=== PATIENT | female | born 1965 | race Caucasian/White ===

== ENCOUNTER 2017-11-25 13:38 | Day surgery (SDC) | payer OTHER, SELFPAY ==
--- NOTE | 2017-11-25 | PATH_ITS ---
[facility] Accession Number: [id number] . 01 Material submitted: . CECAL POLYP . 02 Diagnosis: Cecal Polyp: Tubulovillous adenoma, fragmented. Negative for high-grade dysplasia or malignancy. [facility]/11/29/2017 . 02 Electronically signed: . Rafy Cherry MD, PhD, Pathologist NPI- [id number] . 01 Gross description: . CECAL POLYP: Received in formalin are multiple fragment(s) of tomlin, soft tissue measuring 1.9 x 0.6 x 0.3 cm in aggregate submitted entirely in 1 cassette(s) /CKI /CKI . 02 Pathologist provided ICD-10: D12.0 . 02 CPT . 152347 Performed at: 01 [facility] [address] [place] [address], [place], [place] [id number] MD Moisés Cooper MD Phone: [phone] Performed at: 02 [facility] [address] [place], [place] [id number] MD Celestino Nelson MD Phone: [phone]
[2017-11-25 13:52] VITALS: BP 111/66; PULSE 81; RESP 16; TEMP 36.6; O2SAT 98; BMI 24.9
[2017-11-25] MEDS: SODIUM CHLORIDE 0.9% 1,000 ML 200 ML IV (13:56)
--- NOTE | 2017-11-25 14:23 | PM.HP.1 ---
History of Present Illness Date Patient Seen: 11/25/17 Time Patient Seen: 14:23 Chief complaint: [id number] Narrative: 52-year-old female with family history of colon cancer who presents now at age 52 for colorectal screening. Her 1st cousin recently discovered that he has colorectal cancer related to Saravia syndrome. However, the patient has 2 sisters have been tested and are negative for the abnormality. Nevertheless, patient's grandmother also of colorectal cancer. She has had no recent intestinal symptoms such as nausea, vomiting, loss of appetite, unexplained weight loss, abdominal pain, change in bowel habits, diarrhea, constipation, melena, hematochezia, or bright red blood per rectum. Patient History Medical History Anemia (Acute) Asthma (Acute) Depression (Acute) Environmental allergies (Acute) Family history of Saravia syndrome (Acute) Fungal infection of foot (Acute) Hyperlipidemia (Acute) Hypothyroidism (Acute) Low back pain (Acute) Lumbar radiculopathy (Acute) Neuropathy (Acute) Ovarian cyst (Acute) Recurrent sinusitis (Acute) Restless leg syndrome (Acute) Right inguinal hernia (Acute) Vertigo (Acute) Surgical History H/O right inguinal hernia repair (Acute) Family & Social History Family History: Reviewed 11/25/17 by Jordin Houston MD Social History: household members spouse,children Tobacco & Substance use: Smoking Status Never smoker alcohol intake never Substance Use Type does not use Meds Home Medications Medication Instructions Recorded Confirmed Type gabapentin [Neurontin] PRN #0 02/17/16 History fluticasone 1 spray INTRANASAL #0 03/04/16 History Allergies Allergy/AdvReac Type Severity Reaction Status Date / Time penicillin G Allergy Mild swelling/hi Verified 10/25/17 14:40 ves Review of Systems Review of Systems All systems reviewed & are unremarkable except as noted in HPI and below Exam Vital Signs (past 8 hours): - 11/25/17 13:52 Temperature 97.8 F Pulse Rate 81 Respiratory Rate 16 Blood Pressure 111/66 Pulse Oximetry 98 Oxygen Delivery Method Room Air Narrative Exam Narrative: Well-nourished well-developed female in no acute distress. Alert oriented x3 Sclera nonicteric Neck is supple Chest clear to auscultation. Regular rate and rhythm Abdomen soft, nondistended, nontender, no masses Extremities show no clubbing, cyanosis, or edema Objective Labs Labs: No recent laboratory radiographic studies for review Patient has not yet been tested for Saravia syndrome Assessment & Plan Plan: Assessment/Plan Narrative: 52-year-old female with family history of Saravia syndrome and colorectal neoplasia now presenting for colorectal screening. I recommend colonoscopy. Technical details of the procedure were reviewed. Risks, benefits, alternatives were explained. Risks including but not limited to sedation, aspiration, bleeding, pain, missed lesion, incomplete examination, need for further radiographic studies, colonic perforation, need for major abdominal surgery, and all attendant risks of major surgery were explained at length. All questions were answered to her satisfaction, and she voiced understanding. Consent was placed on the chart. I also advised her to obtain Saravia syndrome genetic testing as this would potentially affect her colorectal surveillance and management. We also discussed a follow-up colonoscopy 5 years from now even if this study is normal given the family history. Again, she voiced understanding. We will proceed with colonoscopy as above.
--- NOTE | 2017-11-25 14:27 | PM.PREOP ---
Pre-operative Note Interval Note Pre-op Check: Yes History & Physical Reviewed by Physician, Yes Exam Performed and Yes History & Physical exam performed today by Physician Changes: No H&P completed within 30 days and has changed as indicated here:: Patient seen and examined today. History physical examination documented and placed on the chart. We will proceed with colonoscopy today as planned. ASA Class (for procedural sedation): I
[2017-11-25] MEDS: fentaNYL 250 MCG/5 ML INJ IV (14:34)
[2017-11-25] MEDS: MIDAZOLAM 5 MG/5 ML VIAL IV (14:35)
--- NOTE | 2017-11-25 15:00 | P.OP.ENDO_ITS ---
Operative Date/Time/Diagnoses Date of procedure: 11/25/17 Time of procedure: 14:57 Pre-op diagnosis: Colorectal screening for family history of colon cancer Post-op diagnosis: other (Colon polyp and few scattered diverticula) Procedure & Clinicians Study performed: 1. Sedation for surgeon 2. 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 She presents now for screening. Colonoscopy is recommended. Surgeon: Jordin Houston Procedure Notes SCOAP/Timeout: Yes Procedure in detail: After obtaining informed consent, the patient was brought to the GI suite and placed in the left lateral decubitus position on the examination table. After placement of appropriate monitors, the patient was given incremental doses of Versed and Fentanyl until an appropriate level of sedation was achieved. A time out was held per SCOAP protocol. A digital rectal examination was performed and did not reveal any masses or obstructing lesions. The colonoscope was gently passed into the patient's anus and the entire colon navigated to the level of the cecum with minimal difficulty. Terminal ileum was intubated and was noted to be normal. Once in the cecum, the scope was withdrawn being sure to go before and beyond all mucosal folds and prominences and get an excellent examination. The findings are noted above. At the level of the rectal vault, the scope was retroflexed and the internal anal canal was examined. The scope was straightened and air aspirated from the colon. The instrument was removed from the patient's body and the procedure was concluded. The patient was allowed to awaken from sedation without difficulty and taken to the post-anesthesia care unit in good condition. Scope withdrawal time: 12:26 min Sedation minutes: 23 Findings: diverticulosis (Very few scattered diverticula left colon) and polyp ( Villous appearing polyp at ileocecal valve removed with combination of hot snare and cold forceps) Specimen(s): other (Cecal polyp) Complications: none Recommendations: Colonscopy in 5 years, High fiber diet and Will call with biopsy results Plan for aftercare: 1. Discharged home Follow up: as needed Disposition: PACU
[2017-11-25 15:08] VITALS: BP 110/70; PULSE 75; RESP 15; TEMP 36.6; O2SAT 98
== END 2017-11-25 15:36 | disposition home or self-care (01) ==
PROVIDERS: PCP Family Medicine; Visit Provider Surgery
PROC: 0DJD8ZZ Inspection of Lower Intestinal Tract, Via Natural or Artificial Opening Endoscopic (ICD-10-PCS; CPT 45378; principal; 2017-11-25 15:00)
DX: Z12.11 Encounter for screening for malignant neoplasm of colon (principal); Z80.0 Family history of malignant neoplasm of digestive organs; K57.30 Diverticulosis of large intestine without perforation or abscess without bleeding; D12.0 Benign neoplasm of cecum
CPT/HCPCS: 45385; 45380; 99152; 99153; J2250; J3010

== ENCOUNTER → 2018-01-12 11:32 | Outpatient (CLI) | payer OTHER, SELFPAY ==
--- NOTE | 2018-01-12 | DI.MG.S_ITS ---
BILATERAL DIGITAL SCREENING MAMMOGRAM 3D/2D WITH CAD: 01/12/2018 CLINICAL: Routine screening. Family history of breast cancer. Comparison is made to exams dated: 07/11/2015 mammogram, 12/09/2016 mammogram, and 08/17/2013 mammogram - [facility]. The tissue of both breasts is heterogeneously dense. This may lower the sensitivity of mammography. Current study was also evaluated with a Computer Aided Detection (CAD) system. No significant masses, calcifications, or other findings are seen in either breast. There has been no significant interval change. IMPRESSION: NEGATIVE There is no mammographic evidence of malignancy. A 1 year screening mammogram is recommended. This exam was interpreted at Station ID: [id number]. NOTE: For mammograms, a report in lay terms will be sent to the patient. Approximately 15% of breast malignancies will not be visualized mammographically. In the management of a palpable breast mass, a negative mammogram must not discourage biopsy of a clinically suspicious lesion. Electronically Signed By: Eugene fuller/spencer:01/14/2018 02:20:13 letter sent: Normal Exam ACR BI-RADS Category 1: Negative [id number]
== END ==
PROVIDERS: PCP Family Medicine; Visit Provider Family Medicine
DX: Z12.31 Encounter for screening mammogram for malignant neoplasm of breast (principal); Z80.3 Family history of malignant neoplasm of breast
CPT/HCPCS: 77063; 77067

== ENCOUNTER 2019-02-15 13:39 | Emergency (ER) | payer OTHER, SELFPAY ==
--- NOTE | 2019-02-15 13:49 | DI.RAD.S_ITS ---
PROCEDURE: XR CHEST 2V INDICATIONS: chest pain TECHNIQUE: 2 views of the chest were acquired. COMPARISON: None. FINDINGS: Surgical changes and devices: None. Lungs and pleura: Retrocardiac streaky opacity seen on the lateral projection. This appears to be in the right lower lobe on the frontal projection. No pleural effusions or pneumothorax. Mediastinum: Mediastinal contours are normal. Heart size is normal. Bones and chest wall: No suspicious bony abnormalities. Soft tissues appear unremarkable. IMPRESSION: Streaky opacity most likely in the right lower lobe. Favor atelectasis but pneumonia or aspiration could have a similar appearance. Dictated by: Padilla Rosales M.D. on 02/15/2019 at 14:12 Approved by: Padilla Rosales M.D. on 02/15/2019 at 14:14
[2019-02-15 13:53] VITALS: BP 111/76; PULSE 80; RESP 13; TEMP 36.4; O2SAT 99
[2019-02-15 14:23] LABS: Add Manual Diff / Slide Review NO; Basophils Absolute Auto 0 /uL (0-100); Basophils Percent Auto 0.6 % (0-2); Eosinophils Absolute Auto 100 /uL (0-450); Eosinophils Percent Auto 1.7 % (2-4); Hematocrit 36.8 % (36-46); Hemoglobin 12.2 g/dL (12.0-16.0); Lymphocytes Absolute Auto 1700 /uL (1100-4500); Lymphocytes Percent Auto 30.7 % (25-40); Mean Corpuscular Hemoglobin 29.3 PG (26-34); Mean Corpuscular Volume 88.9 fL (80-100); Monocytes Absolute Auto 700 /uL (0-900); Monocytes Percent Auto 12.7 % (3-14); Neutrophils Absolute Auto 2900 /uL (1500-7000); Neutrophils Percent Auto 54.3 % (50-75); Platelet Count 218 X10^3/uL (150-400); Red Blood Cell Count 4.15 X10^6/uL (4.0-5.2); Red Cell Distribution Width 13.6 % (11.6-14.8); White Blood Cell Count 5.4 X10^3/uL (4.5-11.0)
[2019-02-15 14:33] VITALS: BP 113/69; PULSE 66; RESP 13; O2SAT 100
--- NOTE | 2019-02-15 14:46 | ED.CHESTPAIN ---
HPI - Chest Pain <STAN Ellington - Last Filed: 02/15/19 22:57> General Chief Complaint: Chest Pain Stated Complaint: chest tightness/cold for 1wk/sore throat x1day Time Seen by Provider: 02/15/19 14:11 Source: patient Mode of arrival: Ambulatory Limitations: no limitations History of Present Illness HPI narrative: This is 53-year-old female, nonsmoker, who presents to ED with mid chest tightness which has been consistent from yesterday. Patient denies nausea, vomiting, dizziness, weakness, cold sweats. She reports has been ill with a mild cold symptoms for a week which she has been exposed to her ill with cold symptoms. She denies fever and reports has been having on and off cough and mild sore throat. Patient denies previous cardiac history. Patient reports in the past with cold symptoms had triggered asthma-like symptoms in the past. Related Data Previous Rx's Medication Instructions Recorded albuterol sulfate 2 puff INHALATION Q4-6H PRN #18 02/15/19 gram doxycycline hyclate 100 mg PO BID 5 Days #10 cap 02/15/19 Allergies Allergy/AdvReac Type Severity Reaction Status Date / Time penicillin G Allergy Mild swelling/hi Verified 10/12/18 10:54 ves Review of Systems <STAN Ellington - Last Filed: 02/15/19 22:57> Review of Systems Narrative: General: Denies fever, chills, fatigue, malaise, sweats. HEENT: Reports sore throat for a day. Denies sinus pain, ear pain, difficulty swallowing, dizziness. Respiratory: Reports cough. Denies dyspnea, wheezing, hemoptysis, sputum. Cardiovascular: See HPI Gastrointestinal: Denies nausea, vomiting, abdominal pain, diarrhea, constipation, melena. : Denies dysuria, frequency, incontinence, hematuria, urinary retention. Musculoskeletal: Denies weakness, joint pain or bony pain. Skin: Denies rash, skin lesions, or other. Neurologic: Denies weakness, headache, numbness, change in speech, confusion, seizures, incoordination. Psychiatric: No concerning psychosocial issues. 12-point review of systems is negative except for those stated above. Patient History <STAN Ellington - Last Filed: 02/15/19 22:57> Medical History Anemia (Acute) Asthma (Acute ~2009) Chicken pox (Resolved ~1982) Depression (Acute ~2011) Environmental allergies (Acute) Family history of Saravia syndrome (Acute) Fungal infection of foot (Acute) History of epidural anesthesia (Resolved) Hyperlipidemia (Acute) Hypothyroidism (Acute ~1985) Low back pain (Acute) Lumbar radiculopathy (Acute) Mumps (Resolved ~1976) Neuropathy (Acute) Ovarian cyst (Acute) Recurrent sinusitis (Acute) Restless leg syndrome (Acute ~1994) Right inguinal hernia (Acute) Seasonal allergies (Chronic ~1979) Vaginal delivery (Resolved) Vertigo (Acute) Surgical History H/O right inguinal hernia repair (Acute) Family History Father Age: 90 Hypertension High cholesterol Mother Cancer Heart disease Sister Age: 55 Breast cancer Grandfather No problems noted. Grandmother No problems noted. Grandfather No problems noted. Grandmother No problems noted. Social History household members: spouse and children Smoking Status: Never smoker alcohol intake: never Family History Father Age: 90 Hypertension High cholesterol Mother Cancer Heart disease Sister Age: 55 Breast cancer Grandfather No problems noted. Grandmother No problems noted. Grandfather No problems noted. Grandmother No problems noted. Social History household members: spouse and children Smoking Status: Never smoker alcohol intake: never Substance Use Type: does not use Exam <STAN Ellington - Last Filed: 02/15/19 22:57> Narrative Exam Narrative: GEN: Alert, oriented x 3, well appearing and nourished, and in no acute distress. Head: Normal cephalic, atraumatic. No scalp or temporal tenderness, palpable mass or rash. EYES: Pupils are equal, round, and reactive to light and accommodation. Extraocular muscles are intact bilaterally. There is no subconjunctival hemorrhage, exudate and sclera non-icteric. ENT: Bilateral auditory canals and tympanic membranes clear. Hearing grossly intact. Nose without bleeding, purulent discharge or deviation. Facial sinuses nontender to palpate. Mucous membrane moist, no mucosal lesion. Throat without erythema, tonsillar hypertrophy or exudate. Uvula in midline, airway patent. Neck: Trachea in midline. No JVD, non-tender without lymphadenopathy. No masses or thyroid megaly. Supple, non-tender and no meningeal signs. CARDIAC: Normal regular rate and rhythm without murmurs, gallops, or rubs. No chest wall tenderness. No peripheral edema, cyanosis or pallor. Capillary refill is less than 2 seconds. RESPIRATORY: Lungs are cleat to auscultate bilaterally. No cough, wheezes, rales, or rhonchi. No stridor, respiratory distress, increase work of breathing, or accessary muscle used. ABD: Abdomen soft, nontender and non-distended. No guarding or rebound tenderness to palpate. Bowel sounds are normal in all 4 quadrants. There is no palpable masses or organomegaly. EXT: Full painless ROM of all extremities with no loss of sensation, strength, effusion or edema. SKIN: Warm, dry, normal color for patient. No erythema, lesions or rash over visible areas. BACK: Nontender without deformity or crepitance. No flank tenderness. NEUROLOGICAL: Alert and oriented to place, time and person. Sensation and motor function intact bilaterally. No facial droops, dysphasia. PSYCHIATRIC: Good judgement and reason, without hallucinations, abnormal affect or abnormal behaviors during the examination. Initial Vital Signs Initial Vital Signs: Vital Signs Temperature 97.6 F 02/15/19 13:53 Pulse Rate 80 02/15/19 13:53 Respiratory Rate 13 02/15/19 13:53 Blood Pressure 111/76 02/15/19 13:53 Pulse Oximetry 99 02/15/19 13:53 <Renay Beckford MD - Last Filed: 02/16/19 07:53> Initial Vital Signs Initial Vital Signs: Vital Signs Temperature 97.6 F 02/15/19 13:53 Pulse Rate 80 02/15/19 13:53 Respiratory Rate 13 02/15/19 13:53 Blood Pressure 111/76 02/15/19 13:53 Pulse Oximetry 99 02/15/19 13:53 Scores <STAN Ellington - Last Filed: 02/15/19 22:57> GCS Gridley coma scale eye opening: Spontaneous [place] coma scale verbal response: Orientated Grid[place] coma scale motor response: Obey commands Gridley coma scale total score: 15 HEART Score Heart Score history: Slightly Suspicious Heart Score EKG: Normal Heart Score Age: 45-64 years old Heart Score risk factors: 1-2 risk factors Heart Score troponin: < or = to normal limit Heart Score Total: 2 Course <Sourav Taniyakayden TELEPHONE ORDER CLERK ROOM SERVICE - Last Filed: 02/15/19 22:57> Orders Ordered: Discontinued Medications Albuterol/Ipratropium (Duoneb) 3 ml INH NOW ONE Stop: 02/15/19 14:50 Last Admin: 02/15/19 15:06 Dose: 3 ml Documented by: TYLER Vital Signs Vital signs: Vital Signs - 8 hr 02/15/19 15:00 02/15/19 15:30 02/15/19 16:00 Pulse Rate 67 84 75 Respiratory Rate 10 L 17 16 Blood Pressure [Left Arm] 120/71 109/69 116/68 Pulse Oximetry 100 97 97 <Renay Beckford MD - Last Filed: 02/16/19 07:53> Orders Ordered: Discontinued Medications Albuterol/Ipratropium (Duoneb) 3 ml INH NOW ONE Stop: 02/15/19 14:50 Last Admin: 02/15/19 15:06 Dose: 3 ml Documented by: TYLER Vital Signs Vital signs: Vital Signs - 8 hr 02/15/19 15:00 02/15/19 15:30 02/15/19 16:00 Pulse Rate 67 84 75 Respiratory Rate 10 L 17 16 Blood Pressure [Left Arm] 120/71 109/69 116/68 Pulse Oximetry 100 97 97 MDM - Chest Pain <Sourav TaniyaBLAINE moniqueP - Last Filed: 02/15/19 22:57> Differential Diagnosis Differential diagnosis: Likely atypical chest pain, costochondritis and other (asthma, pneumonia,) Medical Records Data Attestation: I reviewed the patient's medical records. Lab Data Attestation: I reviewed the patient's lab results. Result diagrams: 02/15/19 14:16 02/15/19 14:16 Labs: Lab Results 10/16/19 10/16/19 Range/Units 14:16 14:16 WBC 5.4 (4.5-11.0) X10^3/uL RBC 4.15 (4.0-5.2) X10^6/uL Hgb 12.2 (12.0-16.0) g/dL Hct 36.8 (36-46) % MCV 88.9 (80-100) fL MCH 29.3 (26-34) PG MCHC 33.0 (30-36) % RDW 13.6 (11.6-14.8) % Plt Count 218 (150-400) X10^3/uL Neut % (Auto) 54.3 (50-75) % Lymph % (Auto) 30.7 (25-40) % [place] % (Auto) 12.7 (3-14) % Eos % (Auto) 1.7 L (2-4) % Baso % (Auto) 0.6 (0-2) % Neut # (Auto) 2900 (2756-2391) /uL Lymph # (Auto) 1700 (0248-2357) /uL [place] # (Auto) 700 (0-900) /uL Eos # (Auto) 100 (0-450) /uL Baso # (Auto) 0 (0-100) /uL Sodium 139 (137-145) mmol/L Potassium 3.9 (3.4-5.1) mmol/L Chloride 104 (98-107) mmol/L Carbon Dioxide 27 (22-32) mmol/L BUN 17 (7-17) mg/dL Creatinine 0.70 (0.52-1.04) mg/dL Estimated GFR > 60.0 (>60) mL/min BUN/Creatinine Ratio 24.3 H (6-22) Glucose 92 (70-100) mg/dL Calcium 9.1 (8.4-10.2) mg/dL Total Bilirubin 0.9 (0.2-1.3) mg/dL AST 36 (14-36) IU/L ALT 33 (9-52) IU/L Alkaline Phosphatase 80 (38-126) U/L Total Creatine Kinase 194 H (30-135) U/L CK-MB (CK-2) 2.36 (<2.37) ng/mL CK-MB (CK-2) Rel Index 1.2 L (1.5-5.0) % Troponin I < 0.012 (0.01-0.034) ng/mL Total Protein 7.2 (6.3-8.2) g/dL Albumin 4.3 (3.5-5.0) g/dL Globulin 2.9 (1.7-4.1) g/dL Albumin/Globulin Ratio 1.5 (1.0-2.8) Imaging Data Chest x-ray: Radiologist's impression: [address] [address] XRay Report Signed Patient: Pat Chi BMR#: [id number] : 1965Acct:[id number] Age/Sex: 53 / FDate of Service: 02/15/19 Loc: ED Accession Number: [id number] Procedure: XR chest 2V Ordering Provider: Renay Beckford MD PROCEDURE: XR CHEST 2V INDICATIONS: chest pain TECHNIQUE: 2 views of the chest were acquired. COMPARISON: None. FINDINGS: Surgical changes and devices: None. Lungs and pleura: Retrocardiac streaky opacity seen on the lateral projection. This appears to be in the right lower lobe on the frontal projection. No pleural effusions or pneumothorax. Mediastinum: Mediastinal contours are normal. Heart size is normal. Bones and chest wall: No suspicious bony abnormalities. Soft tissues appear unremarkable. IMPRESSION: Streaky opacity most likely in the right lower lobe. Favor atelectasis but pneumonia or aspiration could have a similar appearance. Dictated by: Padilla Rosales M.D. on 02/15/2019 at 14:12 Approved by: Padilla Rosales M.D. on 02/15/2019 at 14:14 ECG Data Attestation: I personally reviewed and interpreted this ECG as follows: Prior ECG tracings: not available for review Interpretation: Sinus rhythm rate at 71. [place], No ST elevation or depression. QTc 407 MDM Narrative Medical decision making narrative: This is 53-year-old female, nonsmoker, who presents to ED with mid chest tightness. Patient denies any other related cardiac symptoms with this or fever. Patient had recent and it URI symptoms after she has exposed to her spouse. Patient reports in the past had asthma like symptoms when she has cold symptoms. Patient's lung sounds were clear to auscultate and patient did not have exhibited increased work of breathing. EKG was normal sinus rhythm. Cardiac enzymes including troponin and CK-MB were negative. Other blood tests were unremarkable. Patient reports after a neb treatment the chest tightness had improved. I discussed findings with the patient. Chest x-ray showed streaky opacity on right lower lobe which could be atelectasis, pneumonia, aspiration. Due to patient does not have fever, productive cough or short of breaths, patient is willing to monitor but requested antibiotic medication prescription. Albuterol inhaler at home may be per patient and new prescription has been provided for as needed use for chest tightness, cough, wheezing, or short of breath. Return precautions were discussed with the patient and advised to follow up with PCP in 2-3 days. Patient agrees with treatment plan and no further questions were expressed at this time. <Renay Beckford MD - Last Filed: 02/16/19 07:53> Lab Data Labs: Lab Results 02/15/19 02/15/19 Range/Units 14:16 14:16 WBC 5.4 (4.5-11.0) X10^3/uL RBC 4.15 (4.0-5.2) X10^6/uL Hgb 12.2 (12.0-16.0) g/dL Hct 36.8 (36-46) % MCV 88.9 (80-100) fL MCH 29.3 (26-34) PG MCHC 33.0 (30-36) % RDW 13.6 (11.6-14.8) % Plt Count 218 (150-400) X10^3/uL Neut % (Auto) 54.3 (50-75) % Lymph % (Auto) 30.7 (25-40) % [place] % (Auto) 12.7 (3-14) % Eos % (Auto) 1.7 L (2-4) % Baso % (Auto) 0.6 (0-2) % Neut # (Auto) 2900 (4701-5235) /uL Lymph # (Auto) 1700 (0865-8962) /uL [place] # (Auto) 700 (0-900) /uL Eos # (Auto) 100 (0-450) /uL Baso # (Auto) 0 (0-100) /uL Sodium 139 (137-145) mmol/L Potassium 3.9 (3.4-5.1) mmol/L Chloride 104 (98-107) mmol/L Carbon Dioxide 27 (22-32) mmol/L BUN 17 (7-17) mg/dL Creatinine 0.70 (0.52-1.04) mg/dL Estimated GFR > 60.0 (>60) mL/min BUN/Creatinine Ratio 24.3 H (6-22) Glucose 92 (70-100) mg/dL Calcium 9.1 (8.4-10.2) mg/dL Total Bilirubin 0.9 (0.2-1.3) mg/dL AST 36 (14-36) IU/L ALT 33 (9-52) IU/L Alkaline Phosphatase 80 (38-126) U/L Total Creatine Kinase 194 H (30-135) U/L CK-MB (CK-2) 2.36 (<2.37) ng/mL CK-MB (CK-2) Rel Index 1.2 L (1.5-5.0) % Troponin I < 0.012 (0.01-0.034) ng/mL Total Protein 7.2 (6.3-8.2) g/dL Albumin 4.3 (3.5-5.0) g/dL Globulin 2.9 (1.7-4.1) g/dL Albumin/Globulin Ratio 1.5 (1.0-2.8) Discharge Plan Departure Patient Disposition: Home Clinical Impression: Atypical chest pain Pneumonia Qualifiers: Pneumonia type: due to unspecified organism Laterality: right Lung location: lower lobe of lung Qualified Code(s): J18.1 - Lobar pneumonia, unspecified organism Discharge Date/Time: 02/15/19 16:28 Instructions: DI for Pneumonia -- Adult, DI for Atypical Chest Pain Activity Restrictions/Additional Instructions: You have been diagnosed with [atypical chest pain and possibly pneumonia. EKG and blood tests were unremarkable. Chest x-ray shows streaky opacity in right lower lobe which could be pneumonia. However, you do not have fever or elevated white blood cell count at this time. Please feel doxycycline if you have worsening cough, fever. Since albuterol nebulizer helped with her symptoms I have prescribed albuterol for home use.]. What to do: *Take your medications as directed. Doxycycline is ordered for twice a day for 5 days. Use albuterol with cough, chest tightness, or short of breath every 4-6 hours 2 puffs each for your symptoms. *Follow up with your primary care provider in 2-3 days, call for an appointment. Let them know you were seen in the ED and that we asked you to be seen in follow up. *Return to ED if you have any new, worsening, or concerning symptoms, such as [worsening or different type of chest pain, breathing difficulty, dizziness, nausea or vomiting, weakness, fever over 100.4 after the antibiotic medications or Tylenol and or Motrin, or any acute concerns]. Prescriptions: New doxycycline hyclate 100 mg capsule 100 mg PO BID 5 Days Qty: 10 RF: 0 albuterol sulfate 90 mcg/actuation HFA aerosol inhaler 2 puff INHALATION Q4-6H PRN (Reason: shortness of breath or wheezing) Qty: 18 RF: 0 Referrals: Kaylin Ramirez MD [Primary Care Provider] -
[2019-02-15 14:52] LABS: Alanine Aminotransferase 33 IU/L (9-52); Albumin 4.3 g/dL (3.5-5.0); Albumin Globulin Ratio 1.5 (1.0-2.8); Alkaline Phosphatase 80 U/L (38-126); Aspartate Aminotransferase 36 IU/L (14-36); BUN Creatinine Ratio 24.3 (6-22); Bilirubin Total 0.9 mg/dL (0.2-1.3); Blood Urea Nitrogen 17 mg/dL (7-17); Calcium 9.1 mg/dL (8.4-10.2); Carbon Dioxide 27 mmol/L (22-32); Chloride 104 mmol/L (98-107); Estimated Glomerular Filt Rate > 60.0 mL/min (>60); Globulin 2.9 g/dL (1.7-4.1); Glucose 92 mg/dL (70-100); Potassium 3.9 mmol/L (3.4-5.1); Sodium 139 mmol/L (137-145); Total Protein 7.2 g/dL (6.3-8.2)
[2019-02-15 15:00] VITALS: BP 120/71; PULSE 67; RESP 10; O2SAT 100
[2019-02-15] MEDS: ALBUTEROL/IPRATROPIUM 3 ML AMPUL INH (15:06)
[2019-02-15 15:30] VITALS: BP 109/69; PULSE 84; RESP 17; O2SAT 97
[2019-02-15 15:43] LABS: Creatine Kinase 194 U/L (30-135); HEMOLYSIS < 15 (0-50)
[2019-02-15 15:52] LABS: Troponin I < 0.012 ng/mL (0.01-0.034)
[2019-02-15 15:58] LABS: CKMB % Relative Index 1.2 % (1.5-5.0); Creatine Kinase MB 2.36 ng/mL (<2.37)
[2019-02-15 16:00] VITALS: BP 116/68; PULSE 75; RESP 16; O2SAT 97
== END 2019-02-15 16:28 | disposition home or self-care (01) ==
PROVIDERS: Emergency Medicine; Emergency Provider Nurse Practitioner Family; PCP Family Medicine
DX: R07.89 Other chest pain (principal); J18.1 Lobar pneumonia, unspecified organism
CPT/HCPCS: 36415; 71046; 80053; 82550; 82553; 84484; 85025; 93005; 99283; 99285

== ENCOUNTER → 2019-04-05 11:30 | Outpatient (CLI) | payer OTHER, SELFPAY ==
--- NOTE | 2019-04-05 | DI.MG.S_ITS ---
BILATERAL DIGITAL SCREENING MAMMOGRAM 3D/2D WITH CAD: 04/05/2019 CLINICAL: Routine screening. Family history of breast cancer. Comparison is made to exams dated: 01/12/2018 mammogram, 12/09/2016 mammogram, and 07/11/2015 mammogram - [facility]. The tissue of both breasts is heterogeneously dense. This may lower the sensitivity of mammography. Current study was also evaluated with a Computer Aided Detection (CAD) system. There is a possible 0.5 cm oval equal density asymmetry in the left breast middle depth central to the nipple seen on the craniocaudal view only. No other significant masses, calcifications, or other findings are seen in either breast. IMPRESSION: INCOMPLETE: NEEDS ADDITIONAL IMAGING EVALUATION The possible 0.5 cm oval equal density asymmetry in the left breast is indeterminate. Additional views with possible ultrasound are recommended. This exam was interpreted at Station ID: [id number]. NOTE: For mammograms, a report in lay terms will be sent to the patient. Approximately 15% of breast malignancies will not be visualized mammographically. In the management of a palpable breast mass, a negative mammogram must not discourage biopsy of a clinically suspicious lesion. Electronically Signed By: Sylvain Lopez M.D. at/:04/05/2019 12:04:51 letter sent: Additional Imaging Needed ACR BI-RADS Category 0: Incomplete 3340F
== END ==
PROVIDERS: PCP Family Medicine; Visit Provider Family Medicine
DX: Z12.31 Encounter for screening mammogram for malignant neoplasm of breast (principal); Z80.3 Family history of malignant neoplasm of breast
CPT/HCPCS: 77063; 77067

== ENCOUNTER → 2019-04-05 11:36 | Outpatient (CLI) | payer OTHER, SELFPAY ==
--- NOTE | 2019-04-05 11:59 | DI.CT.S_ITS ---
PROCEDURE: CT PEL WO CON INDICATIONS: rule out recurrent inguinal hernia, right side TECHNIQUE: Noncontrast 3 mm axial sections acquired through the bony pelvis, with coronal and sagittal reformatting. COMPARISON: None. FINDINGS: Image quality: Excellent. Bones: Osteoarthritic changes throughout bony pelvis is seen. No acute pelvic fracture or dislocation. No suspicious intraosseous lesion. No evidence of avascular necrosis of femoral head. There is no CT evidence of sacroiliitis or ankylosis. Soft tissues: There is no evidence of bowel structure. No abnormal bowel wall thickening. The urinary bladder wall is normally in thickness. The uterus and bilateral adnexa show no gross abnormality. No free fluid or free air. There is evidence of prior right inguinal hernia repair with sclerotic changes. A small right middle hernia is seen containing fat only. The right pelvic wall defect measures 1.6 cm in width. There is a moderate-sized left lower abdominal/pelvic wall defect measures 3.5 cm in width and contains fat only. IMPRESSION: 1. Left greater than right bilateral lower abdominal/pelvic wall defect with hernia is containing fat only. Evidence of prior right inguinal hernia repair with fibrotic changes. 2. No acute inflammatory process within the pelvis. No free fluid or free air. 3. No fracture or dislocation. Osteoarthritis throughout bony pelvis. No suspicious osseous lesion. Dictated by: Romeo Castillo M.D. on 04/05/2019 at 16:16 Approved by: Romeo Castillo M.D. on 04/05/2019 at 16:26
== END ==
PROVIDERS: PCP Family Medicine; Visit Provider Surgery
DX: R10.31 Right lower quadrant pain (principal); K43.9 Ventral hernia without obstruction or gangrene; M16.9 Osteoarthritis of hip, unspecified; Z98.890 Other specified postprocedural states; Z87.19 Personal history of other diseases of the digestive system
CPT/HCPCS: 72192

== ENCOUNTER → 2019-04-27 13:47 | Outpatient (CLI) | payer OTHER, SELFPAY ==
--- NOTE | 2019-04-27 13:48 | DI.MG.S_ITS ---
UNILATERAL LEFT DIGITAL DIAGNOSTIC MAMMOGRAM 3D/2D WITH ADDITIONAL VIEWS: 04/27/2019 CLINICAL: Additional evaluation requested from prior study. Comparison is made to exams dated: 04/05/2019 mammogram, 01/12/2018 mammogram, and 12/09/2016 mammogram - [facility]. The tissue of left breast is heterogeneously dense. This may lower the sensitivity of mammography. Previously identified 0.5 cm oval equal density asymmetry in the left breast middle depth (described as being central to the nipple seen on the craniocaudal view only on comparison screening mammograms of 04/05/19 but localizing slightly lateral to the nipple on additional diagnostic views performed today 04/27/19) persists with additional views. IMPRESSION: INCOMPLETE: NEEDS ADDITIONAL IMAGING EVALUATION Previously identified 0.5 cm oval equal density asymmetry in the left breast middle depth (described as being central to the nipple seen on the craniocaudal view only on comparison screening mammograms of 04/05/19 but localizing slightly lateral to the nipple on additional diagnostic views performed today 04/27/19) persists with additional views. A targeted ultrasound is recommended for further evaluation, and will be performed immediately following this exam. This exam was interpreted at Station ID: [id number]. NOTE: For mammograms, a report in lay terms will be sent to the patient. Approximately 15% of breast malignancies will not be visualized mammographically. In the management of a palpable breast mass, a negative mammogram must not discourage biopsy of a clinically suspicious lesion. Electronically Signed By: Eugene Crooks M.D. ecl/:04/27/2019 15:11:55 ACR BI-RADS Category 0: Incomplete 3340F
--- NOTE | 2019-04-27 13:48 | DI.US.S_ITS ---
LIMITED ULTRASOUND OF LEFT BREAST: 04/27/2019 CLINICAL: Additional evaluation requested from prior study. Comparison is made to exams dated: 04/27/2019 mammogram, 04/05/2019 mammogram, 01/12/2018 mammogram, 12/09/2016 mammogram, 07/11/2015 mammogram, and 08/17/2013 mammogram - [facility]. Color flow ultrasound of the left breast 12-6 o'clock, and retroareolar regions was performed. Golden scale images of the real-time examination were reviewed. There is a 0.4 x 0.4 x 0.3 cm oval indistinct hypoechoic probable complicated cyst with low level internal echogenic foci, mild posterior acoustic enhancement/increased through transmission, and no internal vascularity on Doppler ultrasound located in the left breast retroareolar region. This may correlate with the finding seen on comparison screening and diagnostic mammography. IMPRESSION: PROBABLY BENIGN 0.4 x 0.4 x 0.3 cm probable complicated cyst in the left breast retroareolar region. A follow-up diagnostic mammogram and possible targeted ultrasound in 6 months is recommended to demonstrate stability. The patient is advised to monitor her breasts and to return sooner for re-evaluation should she feel anything grow or change. This exam was interpreted at Station ID: [id number]. Electronically Signed By: Eugene Crooks M.D. ecl/:04/27/2019 17:05:31 letter sent: Followup Recommended Ultrasound BI-RADS: 3 Probably benign
== END ==
PROVIDERS: PCP Family Medicine; Visit Provider Family Medicine
DX: R92.8 Other abnormal and inconclusive findings on diagnostic imaging of breast (principal); N60.02 Solitary cyst of left breast
CPT/HCPCS: 76642; 77065; G0279

== ENCOUNTER → 2019-11-15 13:34 | Outpatient (CLI) | payer OTHER, SELFPAY ==
--- NOTE | 2019-11-15 13:36 | DI.US.S_ITS ---
LIMITED ULTRASOUND OF LEFT BREAST: 11/15/2019 CLINICAL: Patient returns for a 6 month follow up of the left breast. Comparison is made to exams dated: 11/15/2019 mammogram, 04/27/2019 ultrasound, 04/27/2019 mammogram, 04/05/2019 mammogram, 01/12/2018 mammogram, and 12/09/2016 mammogram - [facility]. Color flow and real-time ultrasound of the left breast retroareolar were performed. Golden scale images of the real-time examination were reviewed. There is a stable benign 0.3 cm x 0.2 cm x 0.4 cm round cyst in the left breast at 5 o'clock in the retroareolar region. Color flow imaging demonstrates that there is no vascularity present. This is unlikely to correspond to the resolved asymmetry previously seen on mammography. IMPRESSION: BENIGN There is no sonographic evidence of malignancy. The 0.4 cm round cyst in the left breast is stable and appears benign. The mammographic finding has resolved. Return to annual mammogram screening schedule is recommended. Findings and recommendations were conveyed to the patient at time of exam. This exam was interpreted at Station ID: [id number]. Electronically Signed By: Kyara persaud/:11/15/2019 15:50:36 letter sent: Normal Exam Ultrasound BI-RADS: 2 Benign
--- NOTE | 2019-11-15 13:36 | DI.MG.S_ITS ---
UNILATERAL LEFT DIGITAL DIAGNOSTIC MAMMOGRAM 3D/2D: 11/15/2019 CLINICAL: Short term follow up left. Family history of breast cancer. Comparison is made to exams dated: 04/27/2019 mammogram, 04/05/2019 mammogram, 01/12/2018 mammogram, and 12/09/2016 mammogram - [facility]. The tissue of left breast is heterogeneously dense. This may lower the sensitivity of mammography. The oval asymmetry in the left breast anterior depth lateral region previously seen best on the craniocaudal view only is no longer seen. No other significant masses or calcifications are seen in the breast. IMPRESSION: INCOMPLETE: NEEDS ADDITIONAL IMAGING EVALUATION An ultrasound is recommended to confirm resolution or decreased size of the oval asymmetry in the left breast anterior depth lateral region seen on the craniocaudal view only. This was performed immediately following this exam. This exam was interpreted at Station ID: [id number]. NOTE: For mammograms, a report in lay terms will be sent to the patient. Approximately 15% of breast malignancies will not be visualized mammographically. In the management of a palpable breast mass, a negative mammogram must not discourage biopsy of a clinically suspicious lesion. Electronically Signed By: Kyara persaud/:11/15/2019 14:26:10 ACR BI-RADS Category 0: Incomplete 3340F
== END ==
PROVIDERS: PCP Family Medicine; Referring Provider Family Medicine; Visit Provider Family Medicine
DX: R92.8 Other abnormal and inconclusive findings on diagnostic imaging of breast (principal); N60.02 Solitary cyst of left breast; Z80.3 Family history of malignant neoplasm of breast
CPT/HCPCS: 76642; 77065; G0279

== ENCOUNTER → 2020-01-30 10:15 | Outpatient (CLI) | payer OTHER, SELFPAY ==
[2020-01-30 12:23] LABS: HEMOLYSIS < 15 (0-50); Iron 114 ug/dL (37-170)
[2020-01-30 12:34] LABS: Percent Iron Saturation 37 % (15-50); Total Iron Binding Capacity 307 ug/dL (265-497); Transferrin 247 mg/dL (206-381)
[2020-01-30 13:19] LABS: Cholesterol 248 mg/dL (140-199); Glucose 82 mg/dL (70-100); HDL Cholesterol 79 mg/dL (40-60); LDL Cholesterol Calculated 150 mg/dL (<100); Magnesium 2.2 mg/dL (1.6-2.3); Triglycerides 94 mg/dL (35-150)
== END ==
PROVIDERS: PCP Family Medicine; Referring Provider Family Medicine; Visit Provider Family Medicine
DX: Z13.220 Encounter for screening for lipoid disorders (principal); Z13.1 Encounter for screening for diabetes mellitus; G25.81 Restless legs syndrome
CPT/HCPCS: 36415; 80061; 82947; 83540; 83550; 83735; 84443

== ENCOUNTER → 2020-02-02 08:49 | Outpatient (CLI) | payer OTHER, SELFPAY ==
--- NOTE | 2020-02-02 08:52 | DI.MRI.S_ITS ---
PROCEDURE: MR LUMBAR SPINE WO CON INDICATIONS: low back pain, numbness left leg TECHNIQUE: Noncontrast sagittal T1 spin echo and T2 fast echo, sagittal STIR, axial T1 and T2 fast spin echo through the lumbar spine. In cases with scoliosis, additional coronal T2 fast spin echo may be performed. COMPARISON: [facility], , L-SPINE 2-3 VIEWS, 07/15/2017, 12:09. FINDINGS: Image quality: Excellent. Alignment and Curvature: There is loss of normal lumbar lordosis. There are 5 lumbar type vertebral bodies present. There is mild grade 1 retrolisthesis of L5 on S1. Bone Marrow: Marrow is of normal overall signal. No acute vertebral body compression fractures. Moderate reactive signal within the endplates adjacent to the L5-S1 intervertebral disc. Spinal Cord: Conus medullaris terminates at the lower L1 level. Visualized cord demonstrates normal signal and size. Paraspinous Soft Tissues: No paravertebral masses. L1-L2: Normal appearance. L2-L3: Normal appearance. L3-L4: Normal appearance. L4-L5: Mild diffuse disc bulge. Minimal canal stenosis. Minimal bilateral foraminal stenosis. L5-S1: Moderate disc height loss and desiccation. Moderate diffuse disc bulge with superimposed small left posterolateral protrusion. Mild bilateral facet hypertrophy. Mild canal stenosis. Mild to moderate bilateral foraminal stenosis. Left lateral recess stenosis with left S1 nerve root compression. IMPRESSION: 1. Multilevel degenerative disc and facet disease, as well as ligamentum flavum hypertrophy and epidural lipomatosis. 2. Mild multilevel canal stenosis. 3. Multilevel foraminal stenosis, worst at L5-S1, where there is [id number] foraminal stenosis. 4. Left lateral recess stenosis at L5-S1 associated with left S1 nerve root compression. Recommend correlation with clinical symptoms to ascertain relevance of this finding. Dictated by: Fernando Brady M.D. on 02/02/2020 at 10:12 Approved by: Fernando Brady M.D. on 02/02/2020 at 10:15
== END ==
PROVIDERS: PCP Family Medicine; Referring Provider Family Medicine; Visit Provider Family Medicine
DX: M54.5 Low back pain (principal); R20.0 Anesthesia of skin; M51.36 Other intervertebral disc degeneration, lumbar region; M51.37 Other intervertebral disc degeneration, lumbosacral region; M48.07 Spinal stenosis, lumbosacral region; E88.2 Lipomatosis, not elsewhere classified
CPT/HCPCS: 72148

== ENCOUNTER → 2020-04-18 12:21 | Outpatient (CLI) | payer OTHER, SELFPAY ==
--- NOTE | 2020-04-18 | DI.MG.S_ITS ---
BILATERAL DIGITAL SCREENING MAMMOGRAM 3D/2D WITH CAD: 04/18/2020 CLINICAL: Routine screening. Family history of breast cancer. Comparison is made to exams dated: 04/05/2019 mammogram, 01/12/2018 mammogram, and 12/09/2016 mammogram - [facility]. The tissue of both breasts is heterogeneously dense. This may lower the sensitivity of mammography. Current study was also evaluated with a Computer Aided Detection (CAD) system. No significant masses, calcifications, or other findings are seen in either breast. There has been no significant interval change. IMPRESSION: NEGATIVE There is no mammographic evidence of malignancy. A 1 year screening mammogram is recommended. This exam was interpreted at Station ID: [id number]. NOTE: For mammograms, a report in lay terms will be sent to the patient. Approximately 15% of breast malignancies will not be visualized mammographically. In the management of a palpable breast mass, a negative mammogram must not discourage biopsy of a clinically suspicious lesion. Electronically Signed By: Jose Luis Burnett acr/michaelrad:04/18/2020 12:53:26 letter sent: Normal Exam ACR BI-RADS Category 1: Negative 3341F
== END ==
PROVIDERS: PCP Family Medicine; Referring Provider Family Medicine; Visit Provider Family Medicine
DX: Z12.31 Encounter for screening mammogram for malignant neoplasm of breast (principal); Z80.3 Family history of malignant neoplasm of breast
CPT/HCPCS: 77063; 77067

== ENCOUNTER → 2021-04-05 09:16 | Outpatient (CLI) | payer OTHER, SELFPAY ==
[2021-04-05 09:50] LABS: COVID19 -Nasal RAPID Negative (Negative)
== END ==
PROVIDERS: PCP Family Medicine; Visit Provider Nurse Practitioner Family
DX: Z20.822 Contact with and (suspected) exposure to COVID-19 (principal)
CPT/HCPCS: 87635

== ENCOUNTER → 2021-05-20 16:10 | Outpatient (CLI) | payer OTHER, SELFPAY ==
--- NOTE | 2021-05-20 | DI.MG.S_ITS ---
BILATERAL DIGITAL SCREENING MAMMOGRAM 3D/2D WITH CAD: 05/20/2021 CLINICAL: Routine screening. Family history of breast cancer. Comparison is made to exams dated: 04/18/2020 mammogram, 11/15/2019 mammogram, 04/27/2019 mammogram, and 04/05/2019 mammogram - [facility]. The tissue of both breasts is heterogeneously dense. This may lower the sensitivity of mammography. Current study was also evaluated with a Computer Aided Detection (CAD) system. No significant masses, calcifications, or other findings are seen in either breast. There has been no significant interval change. IMPRESSION: NEGATIVE There is no mammographic evidence of malignancy. A 1 year screening mammogram is recommended. This exam was interpreted at Station ID: [id number]. NOTE: For mammograms, a report in lay terms will be sent to the patient. Approximately 15% of breast malignancies will not be visualized mammographically. In the management of a palpable breast mass, a negative mammogram must not discourage biopsy of a clinically suspicious lesion. Electronically Signed By: Stanley Jay M.D., jr/spencer:05/21/2021 09:36:55 letter sent: Normal Exam ACR BI-RADS Category 1: Negative 3341F
== END ==
PROVIDERS: PCP Family Medicine; Referring Provider Family Medicine; Visit Provider Family Medicine
DX: Z12.31 Encounter for screening mammogram for malignant neoplasm of breast (principal)
CPT/HCPCS: 77063; 77067

== ENCOUNTER → 2021-08-28 08:41 | Outpatient (CLI) | payer OTHER, SELFPAY ==
[2021-08-28 11:39] LABS: Influenza A - CEPHEID Flu A NEGATIVE (NEGATIVE); Influenza B - CEPHEID Flu B NEGATIVE (NEGATIVE)
[2021-08-28 12:32] LABS: COVID-19 CEPHEID PCR (VTM/NP) Negative (Negative)
== END ==
PROVIDERS: PCP Family Medicine; Visit Provider Nurse Practitioner Family
DX: R05.9 Cough, unspecified (principal); Z20.822 Contact with and (suspected) exposure to COVID-19
CPT/HCPCS: 0240U

== ENCOUNTER → 2022-03-18 11:05 | Outpatient (CLI) | payer OTHER, SELFPAY ==
[2022-03-18 12:30] LABS: Add Manual Diff / Slide Review NO; Basophils Absolute Auto 0 /uL (0-100); Basophils Percent Auto 0.7 % (0-2); Eosinophils Absolute Auto 100 /uL (0-450); Eosinophils Percent Auto 2.5 % (2-4); Hematocrit 37.7 % (36-46); Hemoglobin 12.3 g/dL (12.0-16.0); Lymphocytes Absolute Auto 1200 /uL (1100-4500); Lymphocytes Percent Auto 25.1 % (25-40); Mean Corpuscular HGB Conc 32.5 % (30-36); Mean Corpuscular Hemoglobin 28.6 PG (26-34); Monocytes Absolute Auto 700 /uL (0-900); Monocytes Percent Auto 13.7 % (3-14); Neutrophils Absolute Auto 2800 /uL (1500-7000); Platelet Count 239 X10^3/uL (150-400); Red Blood Cell Count 4.29 X10^6/uL (4.0-5.2); Red Cell Distribution Width 14.4 % (11.6-14.8); White Blood Cell Count 4.8 X10^3/uL (4.5-11.0)
[2022-03-18 12:33] LABS: Iron 93 ug/dL (37-170)
[2022-03-18 12:38] LABS: Hemoglobin A1C% w Est Avg Glu 5.7 % (4.0-6.0)
[2022-03-18 12:41] LABS: Alanine Aminotransferase 38 IU/L (<35); Albumin 4.4 g/dL (3.5-5.0); Albumin Globulin Ratio 1.4 (1.0-2.8); Alkaline Phosphatase 83 U/L (38-126); Aspartate Aminotransferase 47 IU/L (14-36); BUN Creatinine Ratio 14.6 (6-22); Bilirubin Total 1.5 mg/dL (0.2-1.3); Blood Urea Nitrogen 12 mg/dL (7-17); Calcium 9.3 mg/dL (8.4-10.2); Carbon Dioxide 27 mmol/L (22-32); Chloride 101 mmol/L (98-107); Cholesterol 271 mg/dL (140-199); Estimated Glomerular Filt Rate > 60 mL/min (>60); Globulin 3.1 g/dL (1.7-4.1); Glucose 85 mg/dL (70-100); HDL Cholesterol 82 mg/dL (40-60); HEMOLYSIS < 15 (0-50); LDL Cholesterol Calculated 172 mg/dL (<100); Magnesium 2.1 mg/dL (1.6-2.3); Potassium 4.2 mmol/L (3.4-5.1); Sodium 136 mmol/L (137-145); Total Protein 7.5 g/dL (6.3-8.2); Triglycerides 83 mg/dL (35-150)
[2022-03-18 12:43] LABS: Total Iron Binding Capacity 302 ug/dL (265-497)
[2022-03-18 12:53] LABS: Free T3, Triiodothyronine Free 3.21 pg/mL (2.77-5.27); Free T4, Direct Thyroxine 0.84 ng/dL (0.78-2.19)
[2022-03-18 13:06] LABS: Thyroid Stimulating Hormone 2.61 uIU/mL (0.47-4.68)
[2022-03-18 13:16] LABS: Ferritin 63 ng/mL (11-264)
[2022-03-18 13:47] LABS: Folate 11.5 ng/mL (2.76-20.0); Vitamin B12 391 pg/mL (239-931)
== END ==
PROVIDERS: PCP Family Medicine; Referring Provider Acupuncturist; Visit Provider Acupuncturist
DX: E03.9 Hypothyroidism, unspecified (principal); D64.9 Anemia, unspecified; G25.81 Restless legs syndrome
CPT/HCPCS: 36415; 80053; 80061; 82607; 82728; 82746; 83036; 83540; 83550; 83735; 84439; 84443; 84481; 85025

== ENCOUNTER → 2022-05-22 14:48 | Outpatient (CLI) | payer OTHER, SELFPAY ==
--- NOTE | 2022-05-22 | DI.MG.S_ITS ---
BILATERAL DIGITAL SCREENING MAMMOGRAM 3D/2D WITH CAD: 05/22/2022 CLINICAL: Routine screening. Family history of breast cancer. Comparison is made to exams dated: 05/20/2021 mammogram, 04/18/2020 mammogram, and 04/05/2019 mammogram - [facility]. Both breasts are heterogeneously dense, which may obscure small masses (category c / 51-75% glandular tissue). Current study was also evaluated with a Computer Aided Detection (CAD) system. No significant masses, calcifications, or other findings are seen in either breast. There has been no significant interval change. IMPRESSION: NEGATIVE There is no mammographic evidence of malignancy. A 1 year screening mammogram is recommended. Based on Tyrer-Cuzick model (a risk assessment model), the patient's lifetime risk is 23.5% and her 10 year risk is 7.6%. If a patient has an elevated risk, a more comprehensive evaluation should be considered and/or a referral to a genetic counselor. The [employer], [employer], and NCCN Guidelines advise the consideration of Breast MRI as an adjunct to screening mammography in patients whose Lifetime risk to develop breast cancer is 20% or higher. This exam was interpreted at Station ID: [id number]. NOTE: For mammograms, a report in lay terms will be sent to the patient. Approximately 15% of breast malignancies will not be visualized mammographically. In the management of a palpable breast mass, a negative mammogram must not discourage biopsy of a clinically suspicious lesion. Electronically Signed By: Selvin ricardo/spencer:05/22/2022 15:43:22 letter sent: Normal Exam ACR BI-RADS Category 1: Negative 3341F
== END ==
PROVIDERS: PCP Family Medicine; Referring Provider Family Medicine; Visit Provider Family Medicine
DX: Z12.31 Encounter for screening mammogram for malignant neoplasm of breast (principal); Z80.3 Family history of malignant neoplasm of breast
CPT/HCPCS: 77063; 77067

== ENCOUNTER → 2022-05-25 08:41 | Outpatient (CLI) | payer OTHER, SELFPAY ==
[2022-05-25 10:47] LABS: Alanine Aminotransferase 25 IU/L (<35); Albumin 4.2 g/dL (3.5-5.0); Albumin Globulin Ratio 1.4 (1.0-2.8); Alkaline Phosphatase 64 U/L (38-126); Aspartate Aminotransferase 32 IU/L (14-36); Bilirubin Total 1.4 mg/dL (0.2-1.3); Blood Urea Nitrogen 13 mg/dL (7-17); Calcium 9.2 mg/dL (8.4-10.2); Carbon Dioxide 25 mmol/L (22-32); Chloride 105 mmol/L (98-107); Estimated Glomerular Filt Rate > 60 mL/min (>60); Glucose 87 mg/dL (70-100); HEMOLYSIS < 15 (0-50); Potassium 4.5 mmol/L (3.4-5.1); Sodium 139 mmol/L (137-145); Total Protein 7.2 g/dL (6.3-8.2)
== END ==
PROVIDERS: PCP Family Medicine; Referring Provider Naturopath; Visit Provider Naturopath
DX: K76.9 Liver disease, unspecified (principal)
CPT/HCPCS: 36415; 80053

== ENCOUNTER → 2022-07-17 12:26 | Outpatient (CLI) | payer OTHER, SELFPAY ==
[2022-07-17 13:06] LABS: Add Manual Diff / Slide Review NO; Basophils Absolute Auto 0 /uL (0-100); Basophils Percent Auto 0.6 % (0-2); Eosinophils Absolute Auto 100 /uL (0-450); Eosinophils Percent Auto 1.7 % (2-4); Hematocrit 36.7 % (36-46); Hemoglobin 12.3 g/dL (12.0-16.0); Lymphocytes Absolute Auto 1600 /uL (1100-4500); Lymphocytes Percent Auto 37.6 % (25-40); Mean Corpuscular HGB Conc 33.5 % (30-36); Mean Corpuscular Hemoglobin 29.3 PG (26-34); Mean Corpuscular Volume 87.4 fL (80-100); Monocytes Absolute Auto 600 /uL (0-900); Neutrophils Absolute Auto 1900 /uL (1500-7000); Neutrophils Percent Auto 46.1 % (50-75); Platelet Count 189 X10^3/uL (150-400); Red Cell Distribution Width 13.8 % (11.6-14.8); White Blood Cell Count 4.2 X10^3/uL (4.5-11.0)
[2022-07-17 13:13] LABS: Hemoglobin A1C% w Est Avg Glu 5.7 % (4.0-6.0)
[2022-07-17 13:27] LABS: Alanine Aminotransferase 29 IU/L (<35); Albumin 4.2 g/dL (3.5-5.0); Albumin Globulin Ratio 1.4 (1.0-2.8); Alkaline Phosphatase 84 U/L (38-126); Aspartate Aminotransferase 38 IU/L (14-36); BUN Creatinine Ratio 16.5 (6-22); Bilirubin Total 1.8 mg/dL (0.2-1.3); Blood Urea Nitrogen 13 mg/dL (7-17); Calcium 8.9 mg/dL (8.4-10.2); Carbon Dioxide 26 mmol/L (22-32); Chloride 102 mmol/L (98-107); Cholesterol 232 mg/dL (140-199); Estimated Glomerular Filt Rate > 60 mL/min (>60); Globulin 2.9 g/dL (1.7-4.1); Glucose 82 mg/dL (70-100); HDL Cholesterol 80 mg/dL (40-60); HEMOLYSIS < 15 (0-50); LDL Cholesterol Calculated 140 mg/dL (<100); Potassium 4.4 mmol/L (3.4-5.1); Sodium 135 mmol/L (137-145); Total Protein 7.1 g/dL (6.3-8.2); Triglycerides 62 mg/dL (35-150)
== END ==
PROVIDERS: PCP Family Medicine; Referring Provider Naturopath; Visit Provider Naturopath
DX: R73.09 Other abnormal glucose (principal); E78.5 Hyperlipidemia, unspecified
CPT/HCPCS: 36415; 80053; 80061; 83036; 85025

== ENCOUNTER → 2023-06-14 08:02 | Outpatient (CLI) | payer OTHER, SELFPAY ==
[2023-06-14 09:09] LABS: Add Manual Diff / Slide Review NO; Basophils Absolute Auto 0 /uL (0-100); Basophils Percent Auto 0.7 % (0-2); Eosinophils Absolute Auto 100 /uL (0-450); Eosinophils Percent Auto 1.7 % (2-4); Hematocrit 36.2 % (36-46); Hemoglobin 12.1 g/dL (12.0-16.0); Lymphocytes Absolute Auto 1700 /uL (1100-4500); Lymphocytes Percent Auto 42.6 % (25-40); Mean Corpuscular HGB Conc 33.5 % (30-36); Mean Corpuscular Hemoglobin 29.7 PG (26-34); Mean Corpuscular Volume 88.7 fL (80-100); Monocytes Absolute Auto 500 /uL (0-900); Monocytes Percent Auto 13.7 % (3-14); Neutrophils Absolute Auto 1600 /uL (1500-7000); Neutrophils Percent Auto 41.3 % (50-75); Platelet Count 215 X10^3/uL (150-400); Red Blood Cell Count 4.08 X10^6/uL (4.0-5.2)
[2023-06-14 10:06] LABS: Alanine Aminotransferase 30 IU/L (<35); Albumin Globulin Ratio 1.4 (1.0-2.8); Alkaline Phosphatase 63 U/L (38-126); Aspartate Aminotransferase 48 IU/L (14-36); BUN Creatinine Ratio 20.2 (6-22); Bilirubin Total 1.3 mg/dL (0.2-1.3); Blood Urea Nitrogen 17 mg/dL (7-17); Calcium 9.1 mg/dL (8.4-10.2); Carbon Dioxide 23 mmol/L (22-32); Chloride 102 mmol/L (98-107); Cholesterol 258 mg/dL (140-199); Estimated Glomerular Filt Rate > 60 mL/min (>60); Globulin 2.8 g/dL (1.7-4.1); Glucose 93 mg/dL (70-100); HDL Cholesterol 98 mg/dL (40-60); HEMOLYSIS < 15 (0-50); LDL Cholesterol Calculated 147 mg/dL (<100); Potassium 4.6 mmol/L (3.4-5.1); Sodium 135 mmol/L (137-145); Total Protein 6.8 g/dL (6.3-8.2); Triglycerides 63 mg/dL (35-150)
[2023-06-14 17:10] LABS: Iron 70 ug/dL (37-170)
[2023-06-14 17:19] LABS: Percent Iron Saturation 26 % (15-50); Total Iron Binding Capacity 269 ug/dL (265-497)
[2023-06-15 06:20] LABS: x Labcorp Estim. Avg Glu (eAG) 117 mg/dL (.); x Labcorp Hemoglobin A1c 5.7 % (4.8-5.6)
== END ==
PROVIDERS: PCP Family Medicine; Referring Provider Naturopath; Visit Provider Naturopath
DX: Z00.00 Encounter for general adult medical examination without abnormal findings (principal); R94.5 Abnormal results of liver function studies
CPT/HCPCS: 36415; 80053; 80061; 83036; 83540; 83550; 85025

== ENCOUNTER → 2023-06-23 15:25 | Outpatient (CLI) | payer OTHER, SELFPAY ==
--- NOTE | 2023-06-23 15:26 | DI.MG.S_ITS ---
BILATERAL DIGITAL SCREENING MAMMOGRAM 3D/2D WITH CAD: 06/23/2023 CLINICAL: Routine screening. Family history of breast cancer. Comparison is made to exams dated: 05/22/2022 mammogram, 05/20/2021 mammogram, and 04/18/2020 mammogram - [facility]. Both breasts are heterogeneously dense, which may obscure small masses (category c / 51-75% glandular tissue). Current study was also evaluated with a Computer Aided Detection (CAD) system. There is a focal asymmetry in the right breast at 1 o'clock posterior depth. This is increased in size. No other significant masses, calcifications, or other findings are seen in either breast. There has been no significant interval change. IMPRESSION: INCOMPLETE: NEEDS ADDITIONAL IMAGING EVALUATION The focal asymmetry in the right breast is indeterminate. Additional views with possible ultrasound are recommended. Based on Tyrer-Cuzick model (a risk assessment model), the patient's lifetime risk is 23.3% and her 10 year risk is 8.0%. If a patient has an elevated risk, a more comprehensive evaluation should be considered and/or a referral to a genetic counselor. The [employer], [employer], and NCCN Guidelines advise the consideration of Breast MRI as an adjunct to screening mammography in patients whose Lifetime risk to develop breast cancer is 20% or higher. This exam was interpreted at Station ID: [id number]. NOTE: For mammograms, a report in lay terms will be sent to the patient. Approximately 15% of breast malignancies will not be visualized mammographically. In the management of a palpable breast mass, a negative mammogram must not discourage biopsy of a clinically suspicious lesion. Electronically Signed By: Jaswatn Whitaker M.D. lc/:06/24/2023 08:52:43 letter sent: Additional Imaging Needed ACR BI-RADS Category 0: Incomplete 3340F
== END ==
PROVIDERS: PCP Family Medicine; Referring Provider Family Medicine; Visit Provider Family Medicine
DX: Z12.31 Encounter for screening mammogram for malignant neoplasm of breast (principal); Z80.3 Family history of malignant neoplasm of breast; R92.333 Mammographic heterogeneous density, bilateral breasts
CPT/HCPCS: 77063; 77067

== ENCOUNTER → 2023-07-20 12:01 | Outpatient (CLI) | payer OTHER, SELFPAY ==
--- NOTE | 2023-07-20 | DI.MG.S_ITS ---
UNILATERAL RIGHT DIGITAL DIAGNOSTIC MAMMOGRAM 3D/2D WITH ADDITIONAL VIEWS: 07/20/2023 CLINICAL: Additional evaluation requested from prior study. Comparison is made to exams dated: 06/23/2023 mammogram, 05/22/2022 mammogram, 05/20/2021 mammogram, and 04/18/2020 mammogram - [facility]. The right breast is heterogeneously dense, which may obscure small masses (category c / 51-75% glandular tissue). There is an oval equal density focal asymmetry with an obscured margin in the right breast at 1 o'clock posterior depth. This is seen in additional views. This is increased in size. No other significant masses or calcifications are seen in the breast. IMPRESSION: INCOMPLETE: NEEDS ADDITIONAL IMAGING EVALUATION The oval equal density focal asymmetry in the right breast is indeterminate. An ultrasound is recommended. Based on Tyrer-Cuzick model (a risk assessment model), the patient's lifetime risk is 23.3% and her 10 year risk is 8.0%. If a patient has an elevated risk, a more comprehensive evaluation should be considered and/or a referral to a genetic counselor. The [place] [employer], [place] [employer], and NCCN Guidelines advise the consideration of Breast MRI as an adjunct to screening mammography in patients whose Lifetime risk to develop breast cancer is 20% or higher. This exam was interpreted at Station ID: [id number]. NOTE: For mammograms, a report in lay terms will be sent to the patient. Approximately 15% of breast malignancies will not be visualized mammographically. In the management of a palpable breast mass, a negative mammogram must not discourage biopsy of a clinically suspicious lesion. Electronically Signed By: Selvin ricardo/spencer:07/20/2023 20:24:21 ACR BI-RADS Category 0: Incomplete 3340F
--- NOTE | 2023-07-20 12:02 | DI.US.S_ITS ---
LIMITED ULTRASOUND OF RIGHT BREAST: 07/20/2023 CLINICAL: Patient returns today to evaluate a focal asymmetry in the right breast. Comparison is made to exams dated: 07/20/2023 mammogram, 06/23/2023 mammogram, 05/22/2022 mammogram, 05/20/2021 mammogram, and 04/18/2020 mammogram - [facility]. Color flow and continuous wave Doppler ultrasound of the right breast 1 o'clock region were performed. There is a benign 0.6 cm x 0.9 cm x 0.4 cm oval cyst with a smooth internal wall in the right breast at 2 o'clock posterior depth 3 cm from the nipple. This oval cyst is anechoic with posterior acoustic enhancement. This correlates with mammography findings. Color flow imaging demonstrates that there is no vascularity present. IMPRESSION: BENIGN There is no sonographic evidence of malignancy. The 0.6 cm x 0.9 cm x 0.4 cm oval cyst in the right breast is consistent with a simple cyst and is benign. Return to annual mammogram screening schedule is recommended. This exam was interpreted at Station ID: [id number]. Electronically Signed By: Selvin ricardo/spencer:07/20/2023 20:25:34 letter sent: Normal Exam Ultrasound BI-RADS: 2 Benign
== END ==
LOC: MAMMO 12:01
PROVIDERS: PCP Family Medicine; Referring Provider Family Medicine; Visit Provider Family Medicine
DX: R92.8 Other abnormal and inconclusive findings on diagnostic imaging of breast (principal); N60.01 Solitary cyst of right breast; R92.331 Mammographic heterogeneous density, right breast
CPT/HCPCS: 76642; 77065; G0279

== ENCOUNTER → 2023-07-21 10:30 | Outpatient (CLI) | payer OTHER, SELFPAY ==
[2023-07-21 11:12] LABS: Add Manual Diff / Slide Review NO; Basophils Absolute Auto 0 /uL (0-100); Basophils Percent Auto 0.6 % (0-2); Eosinophils Absolute Auto 100 /uL (0-450); Eosinophils Percent Auto 1.8 % (2-4); Hematocrit 38.3 % (36-46); Hemoglobin 12.8 g/dL (12.0-16.0); Lymphocytes Absolute Auto 1100 /uL (1100-4500); Lymphocytes Percent Auto 30.1 % (25-40); Mean Corpuscular HGB Conc 33.5 % (30-36); Mean Corpuscular Volume 89.5 fL (80-100); Monocytes Absolute Auto 500 /uL (0-900); Monocytes Percent Auto 13.9 % (3-14); Neutrophils Absolute Auto 2000 /uL (1500-7000); Neutrophils Percent Auto 53.6 % (50-75); Platelet Count 228 X10^3/uL (150-400); Red Blood Cell Count 4.28 X10^6/uL (4.0-5.2); Red Cell Distribution Width 14.1 % (11.6-14.8); White Blood Cell Count 3.6 X10^3/uL (4.5-11.0)
[2023-07-21 11:36] LABS: Alanine Aminotransferase 26 IU/L (<35); Albumin 4.2 g/dL (3.5-5.0); Albumin Globulin Ratio 1.3 (1.0-2.8); Alkaline Phosphatase 78 U/L (38-126); Aspartate Aminotransferase 36 IU/L (14-36); Bilirubin Total 1.8 mg/dL (0.2-1.3); Bilirubin Unconjugated 1.7 mg/dL (0.0-1.1); Blood Urea Nitrogen 16 mg/dL (7-17); Calcium 8.8 mg/dL (8.4-10.2); Carbon Dioxide 27 mmol/L (22-32); Chloride 106 mmol/L (98-107); Estimated Glomerular Filt Rate > 60 mL/min (>60); Globulin 3.2 g/dL (1.7-4.1); Glucose 87 mg/dL (70-100); HEMOLYSIS < 15 (0-50); Potassium 4.7 mmol/L (3.4-5.1); Sodium 138 mmol/L (137-145); Total Protein 7.4 g/dL (6.3-8.2)
[2023-07-21 12:05] LABS: Hepatitis B Surface Antigen NEGATIVE s/c (NEGATIVE)
[2023-07-21 12:22] LABS: Hep C Virus Ab w/Reflex Quant NEGATIVE s/c (NEGATIVE)
[2023-07-22 21:46] LABS: Deamidated Gliadin Ab IgA 12 units (0-19); Deamidated Gliadin Ab IgG 3 units (0-19); Immunoglobulin A,Qn 230 mg/dL (87-352); t-Transglutaminase IgA <2 U/mL (0-3)
[2023-07-24 21:36] LABS: Smooth Muscle Antibody 43 Units (0-19)
[2023-07-25 16:16] LABS: ANA Screen, IFA Negative (.)
== END ==
PROVIDERS: PCP Family Medicine; Referring Provider Naturopath; Visit Provider Naturopath
DX: K76.9 Liver disease, unspecified (principal)
CPT/HCPCS: 36415; 80053; 80076; 82784; 83516; 85025; 86015; 86038; 86803; 87340

== ENCOUNTER → 2023-08-24 12:14 | Outpatient (CLI) | payer OTHER, SELFPAY ==
--- NOTE | 2023-08-24 12:15 | DI.US.S_ITS ---
PROCEDURE: US ABDOMEN LIMITED INDICATIONS: abnormal hepatic TECHNIQUE: Real-time scanning was performed of the abdominal and retroperitoneal organs, with image documentation. COMPARISON: None. FINDINGS: Liver: Homogeneous echotexture. No evidence of focal mass lesion. No intra hepatic biliary ductal dilatation Gallbladder: Sonolucent without cholelithiasis. No gallbladder wall thickening. No pericholecystic fluid or Lackey's sign. Common Bile Duct: 3.1 mm. Pancreas: Unremarkable as visualized IMPRESSION: 1. Unremarkable right upper quadrant ultrasound 2. Approved by: Anuj Johnson M.D. on 08/24/2023 at 17:29
== END ==
PROVIDERS: PCP Family Medicine; Referring Provider Naturopath; Visit Provider Naturopath
DX: K76.9 Liver disease, unspecified (principal)
CPT/HCPCS: 76705

== ENCOUNTER → 2023-10-04 12:59 | Outpatient (CLI) | payer OTHER, SELFPAY ==
--- NOTE | 2023-10-04 13:02 | DI.RAD.S_ITS ---
PROCEDURE: XR LUMBAR SPINE 2-3V INDICATIONS: LOW BACK PAIN TECHNIQUE: 3 views of the lumbar spine were acquired. COMPARISON: [facility], , L-SPINE 2-3 VIEWS, 07/15/2017, 12:09. FINDINGS: Bones: 5 [id number] vertebrae are present. There is normal bony alignment. No vertebral body compression fractures. No suspicious bony lesions. There is mild degenerative disc disease and facet arthropathy at L5-S1. Soft tissues: Overlying bowel gas pattern is normal. No suspicious soft tissue calcifications. IMPRESSION: Mild degenerative disc disease and facet arthropathy at L5-S1. Dictated by: Carlos Enrique Hinton M.D. on 10/05/2023 at 8:01 Approved by: Carlos Enrique Hinton M.D. on 10/05/2023 at 8:06
--- NOTE | 2023-10-04 13:22 | DI.RAD.S_ITS ---
PROCEDURE: XR SACROILIAC JOINT MIN 3V INDICATIONS: SI PAIN TECHNIQUE: 3 views of the sacroiliac joints were acquired. COMPARISON: [facility], CR, L-SPINE 2-3 VIEWS, 07/15/2017, 12:09. [facility], CR, XR LUMBAR SPINE 2-3V, 10/04/2023, 13:04. CR, XR LUMBAR SPINE 2 OR 3 VIEWS, 03/18/2020, 8:57. [facility], MR, MR LUMBAR SPINE WO CON, 02/02/2020, 9:05. FINDINGS: Bones: No bony erosions or ankylosis. No suspicious bony lesions. No fractures. Mild degenerative joint disease in sacroiliac joints bilaterally. Soft tissues: Overlying bowel gas pattern is normal. No suspicious soft tissue densities. IMPRESSION: Mild osteoarthritic changes ([place] 1). Dictated by: Carlos Enrique Hinton M.D. on 10/05/2023 at 8:06 Approved by: Carlos Enrique Hinton M.D. on 10/05/2023 at 8:09
== END ==
PROVIDERS: PCP Family Medicine; Referring Provider Naturopath; Visit Provider Naturopath
DX: M47.817 Spondylosis without myelopathy or radiculopathy, lumbosacral region; M51.37 Other intervertebral disc degeneration, lumbosacral region; M46.1 Sacroiliitis, not elsewhere classified; M54.50 Low back pain, unspecified; M53.3 Sacrococcygeal disorders, not elsewhere classified
CPT/HCPCS: 72100; 72202

== ENCOUNTER → 2023-11-24 12:45 | Outpatient (CLI) | payer OTHER, SELFPAY ==
--- NOTE | 2023-11-24 12:48 | DI.MRI.S_ITS ---
PROCEDURE: MR LUMBAR SPINE WO CON INDICATIONS: LOW BACK PAIN TECHNIQUE: Noncontrast sagittal T1 spin echo and T2 fast echo, sagittal STIR, and T2 fast spin echo through the lumbar spine. In cases with scoliosis, additional coronal T2 fast spin echo may be performed. COMPARISON: [facility], MR, MR LUMBAR SPINE WO CON, 02/02/2020, 9:05. FINDINGS: Image quality: Excellent. Alignment and Curvature: There is normal bony alignment. Bone Marrow: Marrow is of normal overall signal. No acute vertebral body compression fractures. Spinal Cord: Conus medullaris terminates at the L1 level. Visualized cord demonstrates normal signal and size. Paraspinous Soft Tissues: No paravertebral masses. Discs: Moderate disc desiccation is present L5-S1. T12-L1: No disc bulge, spinal stenosis or foraminal narrowing. L1-L2: No disc bulge, spinal stenosis or foraminal narrowing. L2-L3: No disc bulge, spinal stenosis or foraminal narrowing. L3-L4: No disc bulge, spinal stenosis or foraminal narrowing. L4-L5: Minimal disc bulge with minimal spinal stenosis and bilateral foraminal narrowing. L5-S1: Mild disc bulge with interval development a posterior central extrusion measuring 1.6 x 1.2 cm causing severe spinal stenosis. Moderate to severe right foraminal narrowing progressive, mild foraminal narrowing on the left. IMPRESSION: Large extrusion at L5-S1 causing severe spinal stenosis. Dictated by: Imelda Mitchell M.D. on 11/24/2023 at 23:43 Approved by: Imelda Mitchell M.D. on 11/24/2023 at 23:45
== END ==
PROVIDERS: Family Provider Family Medicine; PCP Family Medicine; Referring Provider Naturopath; Visit Provider Naturopath
DX: M46.1 Sacroiliitis, not elsewhere classified (principal); M51.27 Other intervertebral disc displacement, lumbosacral region; M48.07 Spinal stenosis, lumbosacral region
CPT/HCPCS: 72148

== ENCOUNTER 2023-12-22 09:00 | Outpatient (RCR) | payer OTHER, SELFPAY ==
--- NOTE | 2023-11-17 16:22 | PT.OIE ---
Current Diagnoses Sacroiliitis, not elsewhere classified (11/17/23) Sciatica, unspecified side (11/17/23) Low back pain, unspecified (11/17/23) Past Medical History (Last Updated 11/08/23 @ 09:00 by Laura Aguirre [facility]) Anemia Asthma (~2009) Chicken pox (~1982) Depression (~2011) Environmental allergies Family history of Saravia syndrome Fungal infection of foot High cholesterol History of epidural anesthesia Hyperlipidemia Hypothyroidism (~1985) Low back pain Lumbar radiculopathy Mumps (~1976) Neuropathy Ovarian cyst Recurrent sinusitis Restless leg syndrome (~1994) Seasonal allergies (~1979) Vaginal delivery Vertigo Past Surgical History (Last Updated 11/08/23 @ 09:00 by Laura Aguirre CMA) H/O right inguinal hernia repair H/O right inguinal hernia repair [place] teeth removed (05/03/84) Visit Care Team Role Provider Type Idalmis Mejia DO Family Provider Physician Primary Care Provider Specialty: Family Practice Address: [address] [place] [address], [address], [address] Email: [email or web address] Marian Duckworth ND Attending Provider Non-Staff Referring Provider Specialty: Naturopathy Address: [address] [place] [address], [id number] Email: Physical Therapy Initial Evaluation PT-OP-A Visit Information Start: 11/16/23 13:18 Freq: Status: Active Protocol: Document 11/17/23 08:13 MB (Rec: 11/17/23 08:38 [id number]) Out-Patient Physical Therapy Visit Information Visit Information Visit Type Initial Evaluation Visit Note Healthcare Management, Self- Pay Visit Start Time 08:13 Visit Stop Time 08:43 Visit Number 1 Number of TANNING CONSULTANT Visits 0 Evaluation Information Evaluation Date 11/17/23 PT-OP-B Current Condition Start: 11/16/23 13:18 Freq: Status: Active Protocol: Document 11/17/23 08:13 MB (Rec: 11/17/23 08:38 [id number]) Current Condition History of Current Condition Onset Date Years with back pain with flare-up over the past 6 months Current Complaints Right sciatic symptoms since July History of Current Condition Pt has a history of LBP and LLE sciatic-type symptoms. This was about 5 years ago. She had last MRI 4 years ago and results below. In July of 2023, pt had onset of right sciatic pain symptoms. 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 She has a new bench that she is sitting on and she has not been using therapy ball at client's home and sits on the floor occ. Sleeping is hit or miss. She has pain down right leg in supine or right side. She sleeps on left side, too, and uses pillow support. Some manual treatments by providers has been helpful. She is walking flat surfaces daily and is doing pelvic realignment exercises and has not been doing therapy ball exercises. Pt went to [facility] and she got some aqua exercises and she goes 4x/wk. She does feel improvement over the last few months with OMT and other interventions. Prior Treatments and Tests MRI 2020: IMPRESSION: 1. Multilevel degenerative disc and facet disease, as well as ligamentum flavum hypertrophy and epidural lipomatosis. 2. Mild multilevel canal stenosis. 3. Multilevel foraminal stenosis, worst at L5-S1, where there is mild-to- moderate foraminal stenosis. 4. Left lateral recess stenosis at L5-S1 associated with left S1 nerve root compression. Recommend correlation with clinical symptoms to ascertain relevance of this finding. Treatment Goals Patient/Caregiver Goals To decrease pain and increase sleep. Pt is concerned about strengthening if she has alignment issues. PT-OP-C Subjective Start: 11/16/23 13:18 Freq: Status: Active Protocol: Document 11/17/23 08:13 MB (Rec: 11/17/23 08:38 [id number]) OP-PT Subjective Patient Comments Patient Comments See history of current condition Patient Questionnaires Oswestry Low Back Index Oswestry Score 17 Oswestry Impairment 20 to 39% Impaired (Score 20- 39) PT-OP-J Posture/Palpation/Skin Start: 11/16/23 13:18 Freq: Status: Active Protocol: Document 11/17/23 08:13 MB (Rec: 11/17/23 08:48 MB [id number]) Posture Evaluation Comments Posture Comments Increased dalton angle left greater than right foot with gait, increased lateral weight bearing feet and decreased toe push off. Gait in bare feet. Standing posture in bare feet: Mild Dowager's hump, decreased thoracic kyphosis, mild right thoracic convexity, right scapula is mildly lower than the left, right iliac crest mildly higher than the left, B rounded shoulders and forward head. Decreased lumbar lordosis as well. PT-OP-K Range of Motion Start: 11/16/23 13:18 Freq: Status: Active Protocol: Document 11/17/23 08:13 MB (Rec: 11/17/23 16:19 MB [id number]) Lumbar Spine Range of Motion Lumbar Spine Active Testing Position Standing Comments Flexion with fingertips 12 from the floor, extension 10 deg, B SB limited and more to the right with improved movement with SI joint compression/pelvic support B thoracic rotation limited with mild reduction to the right compared to left PT-OP-L Special Tests Start: 11/16/23 13:18 Freq: Status: Active Protocol: Document 11/17/23 08:13 MB (Rec: 11/17/23 16:19 MB [id number]) Special Tests Other Special Tests Special Tests Initiated Slump Testing and with left slump, increased numbness down left leg to foot and increased pain down right leg and so deferred testing right side to avoid provoking pt too much PT-OP-M Strength Start: 11/16/23 13:18 Freq: Status: Active Protocol: Document 11/17/23 08:13 MB (Rec: 11/17/23 16:22 MB [id number]) Hip Strength Hip Manual Muscle Testing Left Flexion (L2) 4+ Good+ Extension (S1) 4+ Good+ Abduction 4+ Good+ Adduction 4+ Good+ Comments Peformed in supine Right Flexion (L2) 4 Good Extension (S1) 4 Good Abduction 4 Good Adduction 4 Good Comments Performed in supine Knee Strength Knee Manual Muscle Testing Left Flexion (S2) 4+ Good+ Extension (L3) 5 Normal Right Flexion (S2) 4+ Good+ Extension (L3) 5 Normal Ankle/Foot Strength Ankle and Foot Manual Muscle Testing Bilateral Dorsiflexion (L4) 5 Normal Toe Strength Toe Manual Muscle Testing Left Great Toe Extension 5 Normal Right Great Toe Extension 5 Normal PT-OP-Q Treatments Start: 11/16/23 13:18 Freq: Status: Active Protocol: Document 11/17/23 08:13 MB (Rec: 11/17/23 16:19 MB [id number]) Self-Care/Home Management Treatment Education Patient Education Body Mechanics,Joint Protection,Pain Management, Posture Other Education Ed pt on proper sleeping position, to con't with aquatic exercise, ed on plan for PT to work on alignment first, breathing and then flexibility, strengthening and balance PT-OP-T Assessment and Plan Start: 11/16/23 13:18 Freq: Status: Active Protocol: Document 11/17/23 08:13 MB (Rec: 11/17/23 16:19 MB [id number]) Physical Therapy Assessment Rehab Potential Rehabilitation Potential Fair Evaluation Complexity Number of Personal Factors/Comorbidities 1-2 Number of Body Systems Impaired 1-2 Clinical Presentation at Evaluation Evolving Impairments Impairments Activity Tolerance,Balance, Functional Activities, Functional Mobility,Gait,Pain, Posture,ROM,Sensation,Soft Tissue Mobility,Strength, Transfers,Vestibular Goals 3 Impairment Lack of HEP Skilled Nursing Goal (LTG) Pt will perform progressive HEP with I including pelvic realignment, breathing, flexibility, gentle strengthening and balance exercises to improve pain and strength. LTG Duration 8 weeks 2 Impairment LE weakness Legal Clerk Goal (LTG) Pt will present with B hip flexion, extension and abduction strength to at least 4+/5 to improve functional strength with transfers and gait. LTG Duration 8 weeks 1 Impairment Oswestry reflects 34% impairment Skilled Nursing Goal (LTG) Pt will present with Oswestry score reflecting no more than 25% impairment to improve quality of life and pain. LTG Duration 8 weeks Assessment Summary Assessment Pt is a 58 y/o female presenting with long history of back pain, left sciatica and now more recently, right sciatica symptoms. Left Slump Test exacerbates both legs today and so deferred right Slump testing. Pt reports numbness down left leg in L5 distribution and pain and tingling down right leg in similar distribution. Pt presents with limited lumbar and thoracic mobility and mild hip weakness. Pt will benefit from PT trial to improve range, alignment, strength and balance. B LE radicular symptoms in setting of known L5-S1 changes and stenosis may be barriers to PT and pt may need further intervention beyond physical therapy to address such as spinal surgeon or pain specialist consults. Pt to have a repeat MRI soon. Core progression, balance, gentle strengthening may be very helpful for pt. Physical Therapy Plan Frequency and Duration Frequency of Treatment 1-2x/wk Duration of treatment (weeks) 8 Plan of Care Start Date 11/17/23 Plan of Care End Date 01/18/24 Therapeutic Interventions Therapeutic Interventions Balance Training,Canalithic Repositioning,Gait Training, Home Exercise Program,Joint Mobilizations,Manual Therapy, Neuromuscular Re-education, Patient/Caregiver Education, Self-Care/Home Management,Soft Tissue Mobilization,Taping, Therapeutic Activities, Therapeutic Exercises, Vestibular Rehabilitation Modalities Cold Pack/Ice Massage,Electric Stimulation,Hot Packs, Ultrasound Next Visit Focus/Plan Next Note Type Treatment Note Next Visit Plan Review pelvic realignment exercises and consider pelvic and LBP program, manual work and progressive gentle core exercises and Buteyko breathing
--- NOTE | 2023-11-17 16:23 | PT.OPPOC ---
Physical, Occupational & Speech Therapy At [facility] Current Diagnoses Sacroiliitis, not elsewhere classified (11/17/23) Sciatica, unspecified side (11/17/23) Low back pain, unspecified (11/17/23) Visit Care Team Role Provider Type Idalmis Mejia DO Family Provider Physician Primary Care Provider Specialty: Family Practice Address: [address] [place] [address], [address], [address] Email: [email or web address] Marian Duckworth ND Attending Provider Non-Staff Referring Provider Specialty: Naturopathy Address: [address] [place] [address], [id number] Email: Plan Of Care PT-OP-T Assessment and Plan Start: 11/16/23 13:18 Freq: Status: Active Protocol: Document 11/17/23 08:13 MB (Rec: 11/17/23 16:19 MB [id number]) Physical Therapy Assessment Rehab Potential Rehabilitation Potential Fair Evaluation Complexity Number of Personal Factors/Comorbidities 1-2 Number of Body Systems Impaired 1-2 Clinical Presentation at Evaluation Evolving Impairments Impairments Activity Tolerance,Balance, Functional Activities, Functional Mobility,Gait,Pain, Posture,ROM,Sensation,Soft Tissue Mobility,Strength, Transfers,Vestibular Goals 3 Impairment Lack of HEP Home Visitor Goal (LTG) Pt will perform progressive HEP with I including pelvic realignment, breathing, flexibility, gentle strengthening and balance exercises to improve pain and strength. LTG Duration 8 weeks 2 Impairment LE weakness Long-Term Goal (LTG) Pt will present with B hip flexion, extension and abduction strength to at least 4+/5 to improve functional strength with transfers and gait. LTG Duration 8 weeks 1 Impairment Oswestry reflects 34% impairment Home Visitor Goal (LTG) Pt will present with Oswestry score reflecting no more than 25% impairment to improve quality of life and pain. LTG Duration 8 weeks Assessment Summary Assessment Pt is a 58 y/o female presenting with long history of back pain, left sciatica and now more recently, right sciatica symptoms. Left Slump Test exacerbates both legs today and so deferred right Slump testing. Pt reports numbness down left leg in L5 distribution and pain and tingling down right leg in similar distribution. Pt presents with limited lumbar and thoracic mobility and mild hip weakness. Pt will benefit from PT trial to improve range, alignment, strength and balance. B LE radicular symptoms in setting of known L5-S1 changes and stenosis may be barriers to PT and pt may need further intervention beyond physical therapy to address such as spinal surgeon or pain specialist consults. Pt to have a repeat MRI soon. Core progression, balance, gentle strengthening may be very helpful for pt. Physical Therapy Plan Frequency and Duration Frequency of Treatment 1-2x/wk Duration of treatment (weeks) 8 Plan of Care Start Date 11/17/23 Plan of Care End Date 01/18/24 Therapeutic Interventions Therapeutic Interventions Balance Training,Canalithic Repositioning,Gait Training, Home Exercise Program,Joint Mobilizations,Manual Therapy, Neuromuscular Re-education, Patient/Caregiver Education, Self-Care/Home Management,Soft Tissue Mobilization,Taping, Therapeutic Activities, Therapeutic Exercises, Vestibular Rehabilitation Modalities Cold Pack/Ice Massage,Electric Stimulation,Hot Packs, Ultrasound Next Visit Focus/Plan Next Note Type Treatment Note Next Visit Plan Review pelvic realignment exercises and consider pelvic and LBP program, manual work and progressive gentle core exercises and Buteyko breathing Plan of Care Dates Plan of Care Start Date 11/17/23 Plan of Care End Date 01/18/24 Electronically Signed by: Argentina Castillo PT 11/17/23 6551 If you are in agreement with this Plan of Care, please return a signed and dated copy. I have reviewed this Plan of Care and certify that the skilled therapy services above are required to meet the patient?s needs. Physician Signature Date Printed Name and Credentials Clinical Instructor Signature Printed Name and Credentials
--- NOTE | 2023-11-24 10:30 | PT.OTN ---
Current Diagnoses Sacroiliitis, not elsewhere classified (11/24/23) Sciatica, unspecified side (11/24/23) Low back pain, unspecified (11/24/23) Physical Therapy Treatment Note PT-OP-A Visit Information Start: 11/16/23 13:18 Freq: Status: Active Protocol: Document 11/24/23 09:04 MB (Rec: 11/24/23 09:38 MB [id number]) Out-Patient Physical Therapy Visit Information Visit Information Visit Type Treatment Note Visit Note Healthcare Management, Self- Pay Visit Start Time 09:04 Visit Stop Time 09:45 Visit Number 2 Number of BENEFITS COUNSELOR Visits 0 Evaluation Information Evaluation Date 11/17/23 PT-OP-B Current Condition Start: 11/16/23 13:18 Freq: Status: Active Protocol: Document 11/17/23 08:13 MB (Rec: 11/17/23 08:38 MB [id number]) Current Condition History of Current Condition Onset Date Years with back pain with flare-up over the past 6 months Current Complaints Right sciatic symptoms since July History of Current Condition Pt has a history of LBP and LLE sciatic-type symptoms. This was about 5 years ago. She had last MRI 4 years ago and results below. In July of 2023, pt had onset of right sciatic pain symptoms. 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 She has a new bench that she is sitting on and she has not been using therapy ball at client's home and sits on the floor occ. Sleeping is hit or miss. She has pain down right leg in supine or right side. She sleeps on left side, too, and uses pillow support. Some manual treatments by providers has been helpful. She is walking flat surfaces daily and is doing pelvic realignment exercises and has not been doing therapy ball exercises. Pt went to [facility] and she got some aqua exercises and she goes 4x/wk. She does feel improvement over the last few months with OMT and other interventions. Prior Treatments and Tests MRI 2019: IMPRESSION: 1. Multilevel degenerative disc and facet disease, as well as ligamentum flavum hypertrophy and epidural lipomatosis. 2. Mild multilevel canal stenosis. 3. Multilevel foraminal stenosis, worst at L5-S1, where there is mild-to- moderate foraminal stenosis. 4. Left lateral recess stenosis at L5-S1 associated with left S1 nerve root compression. Recommend correlation with clinical symptoms to ascertain relevance of this finding. Treatment Goals Patient/Caregiver Goals To decrease pain and increase sleep. Pt is concerned about strengthening if she has alignment issues. PT-OP-C Subjective Start: 11/16/23 13:18 Freq: Status: Active Protocol: Document 11/24/23 09:04 MB (Rec: 11/24/23 09:38 MB [id number]) OP-PT Subjective Patient Comments Patient Comments Pt took a tumble at the pool when she tripped on a tile. Her neck is a little sore and she has been doing pool exercises. She has not been doing ball exercises or supine mild extension with shimmying hips. Doctor has assessed her since she fell and hit her head and she was cleared. Sleeping has been challenging. PT-OP-J Posture/Palpation/Skin Start: 11/16/23 13:18 Freq: Status: Active Protocol: Document 11/17/23 08:13 MB (Rec: 11/17/23 08:48 MB [id number]) Posture Evaluation Comments Posture Comments Increased dalton angle left greater than right foot with gait, increased lateral weight bearing feet and decreased toe push off. Gait in bare feet. Standing posture in bare feet: Mild Dowager's hump, decreased thoracic kyphosis, mild right thoracic convexity, right scapula is mildly lower than the left, right iliac crest mildly higher than the left, B rounded shoulders and forward head. Decreased lumbar lordosis as well. PT-OP-K Range of Motion Start: 11/16/23 13:18 Freq: Status: Active Protocol: Document 11/17/23 08:13 MB (Rec: 11/17/23 16:19 MB [id number]) Lumbar Spine Range of Motion Lumbar Spine Active Testing Position Standing Comments Flexion with fingertips 12 from the floor, extension 10 deg, B SB limited and more to the right with improved movement with SI joint compression/pelvic support B thoracic rotation limited with mild reduction to the right compared to left PT-OP-L Special Tests Start: 11/16/23 13:18 Freq: Status: Active Protocol: Document 11/17/23 08:13 MB (Rec: 11/17/23 16:19 MB [id number]) Special Tests Other Special Tests Special Tests Initiated Slump Testing and with left slump, increased numbness down left leg to foot and increased pain down right leg and so deferred testing right side to avoid provoking pt too much PT-OP-M Strength Start: 11/16/23 13:18 Freq: Status: Active Protocol: Document 11/17/23 08:13 MB (Rec: 11/17/23 16:22 MB [id number]) Hip Strength Hip Manual Muscle Testing Left Flexion (L2) 4+ Good+ Extension (S1) 4+ Good+ Abduction 4+ Good+ Adduction 4+ Good+ Comments Peformed in supine Right Flexion (L2) 4 Good Extension (S1) 4 Good Abduction 4 Good Adduction 4 Good Comments Performed in supine Knee Strength Knee Manual Muscle Testing Left Flexion (S2) 4+ Good+ Extension (L3) 5 Normal Right Flexion (S2) 4+ Good+ Extension (L3) 5 Normal Ankle/Foot Strength Ankle and Foot Manual Muscle Testing Bilateral Dorsiflexion (L4) 5 Normal Toe Strength Toe Manual Muscle Testing Left Great Toe Extension 5 Normal Right Great Toe Extension 5 Normal PT-OP-Q Treatments Start: 11/16/23 13:18 Freq: Status: Active Protocol: Document 11/24/23 09:04 MB (Rec: 11/24/23 09:38 MB [id number]) Therapeutic Exercises Supine Exercises Pelvic realignment exercises Side bilateral Equipment Used Blue ball Reps/Minutes 5 reps, 3 sec hold Comments Feet together ball squeeze, knee opp ankle iso, thigh press down iso Abdominal drawing in Comments Pelvic tilt and abdominal drawing in and this is set position for future ge Prone Exercises Modified Jane Comments Hands under chin and mild rock hips side to side Sitting Exercises Pect stretch Sitting Exercise Name Careful with this one at home Comments Performed with abdominal drawing in and half bridge with glute squeeze and Therapy ball exercises Sitting Exercise Name Abdominal drawing in, clockwise and counter rolls and rocking forward and b Comments Ed in abdominal drawing in and a lot of pelvic rocking PT-OP-T Assessment and Plan Start: 11/16/23 13:18 Freq: Status: Active Protocol: Document 11/24/23 09:04 MB (Rec: 11/24/23 09:38 MB [id number]) Physical Therapy Assessment Rehab Potential Rehabilitation Potential Fair Evaluation Complexity Number of Personal Factors/Comorbidities 1-2 Number of Body Systems Impaired 1-2 Clinical Presentation at Evaluation Evolving Impairments Impairments Activity Tolerance,Balance, Functional Activities, Functional Mobility,Gait,Pain, Posture,ROM,Sensation,Soft Tissue Mobility,Strength, Transfers,Vestibular Goals 3 Impairment Lack of HEP Fpc Goal (LTG) Pt will perform progressive HEP with I including pelvic realignment, breathing, flexibility, gentle strengthening and balance exercises to improve pain and strength. LTG Duration 8 weeks 2 Impairment LE weakness Special Projects Coordinator Goal (LTG) Pt will present with B hip flexion, extension and abduction strength to at least 4+/5 to improve functional strength with transfers and gait. LTG Duration 8 weeks 1 Impairment Oswestry reflects 34% impairment Fpc Goal (LTG) Pt will present with Oswestry score reflecting no more than 25% impairment to improve quality of life and pain. LTG Duration 8 weeks Assessment Summary Assessment Progressed HEP today and ed pt to perform to tolerance and to not increase pain, especially sciatic pain. Con't per POC below. Physical Therapy Plan Frequency and Duration Frequency of Treatment 1-2x/wk Duration of treatment (weeks) 8 Plan of Care Start Date 11/17/23 Plan of Care End Date 01/18/24 Therapeutic Interventions Therapeutic Interventions Balance Training,Canalithic Repositioning,Gait Training, Home Exercise Program,Joint Mobilizations,Manual Therapy, Neuromuscular Re-education, Patient/Caregiver Education, Self-Care/Home Management,Soft Tissue Mobilization,Taping, Therapeutic Activities, Therapeutic Exercises, Vestibular Rehabilitation Modalities Cold Pack/Ice Massage,Electric Stimulation,Hot Packs, Ultrasound Next Visit Focus/Plan Next Note Type Treatment Note Next Visit Plan Consider pelvic and LBP program, manual work and progressive gentle core exercises and Buteyko breathing
--- NOTE | 2023-11-24 16:13 | PT-OP ANOTE ---
Pt had lumbar MRI today and PT checks for report before leaving for the day and currently, only image is available. Pt did not bring therapy ball by for inflation and will do as able.
--- NOTE | 2023-11-29 07:32 | PT-OP ANOTE ---
PT reviews lumbar MRI results from 11/24/23: L5-S1: Mild disc bulge with interval development a posterior central extrusion measuring 1.6 x 1.2 cm causing severe spinal stenosis. Moderate to severe right foraminal narrowing progressive, mild foraminal narrowing on the left. IMPRESSION: Large extrusion at L5-S1 causing severe spinal stenosis. Pt will likely need to see spinal surgeon. Pt has limited PT visits for the year and so will con't PT as appropriate and as pt con't to progress.
--- NOTE | 2023-11-29 08:15 | PT.OTN ---
Current Diagnoses Sacroiliitis, not elsewhere classified (11/29/23) Sciatica, unspecified side (11/29/23) Low back pain, unspecified (11/29/23) Physical Therapy Treatment Note PT-OP-A Visit Information Start: 11/16/23 13:18 Freq: Status: Active Protocol: Document 11/29/23 07:31 SP (Rec: 11/29/23 08:17 SP [id number]) Out-Patient Physical Therapy Visit Information Visit Information Visit Type Treatment Note Visit Note Healthcare Management, Self- Pay Visit Start Time 07:31 Visit Stop Time 08:15 Visit Number 3 Number of ROUSTABOUT Visits 1 Evaluation Information Evaluation Date 11/17/23 PT-OP-B Current Condition Start: 11/16/23 13:18 Freq: Status: Active Protocol: Document 11/17/23 08:13 MB (Rec: 11/17/23 08:38 MB [id number]) Current Condition History of Current Condition Onset Date Years with back pain with flare-up over the past 6 months Current Complaints Right sciatic symptoms since July History of Current Condition Pt has a history of LBP and LLE sciatic-type symptoms. This was about 5 years ago. She had last MRI 4 years ago and results below. In July of 2023, pt had onset of right sciatic pain symptoms. 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 She has a new bench that she is sitting on and she has not been using therapy ball at client's home and sits on the floor occ. Sleeping is hit or miss. She has pain down right leg in supine or right side. She sleeps on left side, too, and uses pillow support. Some manual treatments by providers has been helpful. She is walking flat surfaces daily and is doing pelvic realignment exercises and has not been doing therapy ball exercises. Pt went to [employer] and she got some aqua exercises and she goes 4x/wk. She does feel improvement over the last few months with OMT and other interventions. Prior Treatments and Tests MRI 2020: IMPRESSION: 1. Multilevel degenerative disc and facet disease, as well as ligamentum flavum hypertrophy and epidural lipomatosis. 2. Mild multilevel canal stenosis. 3. Multilevel foraminal stenosis, worst at L5-S1, where there is mild-to- moderate foraminal stenosis. 4. Left lateral recess stenosis at L5-S1 associated with left S1 nerve root compression. Recommend correlation with clinical symptoms to ascertain relevance of this finding. Treatment Goals Patient/Caregiver Goals To decrease pain and increase sleep. Pt is concerned about strengthening if she has alignment issues. PT-OP-C Subjective Start: 11/16/23 13:18 Freq: Status: Active Protocol: Document 11/29/23 07:31 SP (Rec: 11/29/23 08:17 SP [id number]) OP-PT Subjective Patient Comments Patient Comments Pt reports MRI last week with no follow up scheduled to get results and has a pain mgt referral next week. She reports had to take Gabapentin due to increased pain 300 vs 200 mg and think was to much feeling slow and intensional. PT-OP-J Posture/Palpation/Skin Start: 11/16/23 13:18 Freq: Status: Active Protocol: Document 11/17/23 08:13 MB (Rec: 11/17/23 08:48 MB [id number]) Posture Evaluation Comments Posture Comments Increased dalton angle left greater than right foot with gait, increased lateral weight bearing feet and decreased toe push off. Gait in bare feet. Standing posture in bare feet: Mild Dowager's hump, decreased thoracic kyphosis, mild right thoracic convexity, right scapula is mildly lower than the left, right iliac crest mildly higher than the left, B rounded shoulders and forward head. Decreased lumbar lordosis as well. PT-OP-K Range of Motion Start: 11/16/23 13:18 Freq: Status: Active Protocol: Document 11/17/23 08:13 MB (Rec: 11/17/23 16:19 MB [id number]) Lumbar Spine Range of Motion Lumbar Spine Active Testing Position Standing Comments Flexion with fingertips 12 from the floor, extension 10 deg, B SB limited and more to the right with improved movement with SI joint compression/pelvic support B thoracic rotation limited with mild reduction to the right compared to left PT-OP-L Special Tests Start: 11/16/23 13:18 Freq: Status: Active Protocol: Document 11/17/23 08:13 MB (Rec: 11/17/23 16:19 MB [id number]) Special Tests Other Special Tests Special Tests Initiated Slump Testing and with left slump, increased numbness down left leg to foot and increased pain down right leg and so deferred testing right side to avoid provoking pt too much PT-OP-M Strength Start: 11/16/23 13:18 Freq: Status: Active Protocol: Document 11/17/23 08:13 MB (Rec: 11/17/23 16:22 MB [id number]) Hip Strength Hip Manual Muscle Testing Left Flexion (L2) 4+ Good+ Extension (S1) 4+ Good+ Abduction 4+ Good+ Adduction 4+ Good+ Comments Peformed in supine Right Flexion (L2) 4 Good Extension (S1) 4 Good Abduction 4 Good Adduction 4 Good Comments Performed in supine Knee Strength Knee Manual Muscle Testing Left Flexion (S2) 4+ Good+ Extension (L3) 5 Normal Right Flexion (S2) 4+ Good+ Extension (L3) 5 Normal Ankle/Foot Strength Ankle and Foot Manual Muscle Testing Bilateral Dorsiflexion (L4) 5 Normal Toe Strength Toe Manual Muscle Testing Left Great Toe Extension 5 Normal Right Great Toe Extension 5 Normal PT-OP-Q Treatments Start: 11/16/23 13:18 Freq: Status: Active Protocol: Document 11/29/23 07:31 SP (Rec: 11/29/23 08:17 SP [id number]) Therapeutic Exercises Supine Exercises Pelvic realignment exercises Supine Exercise Name discussed not performed today- reasoning selection- better understanding Side bilateral Equipment Used Blue ball Reps/Minutes 5 reps, 3 sec hold Comments Feet together ball squeeze, knee opp ankle iso, thigh press down iso Other Exercises pelvis Other Exercise Name Pelvic and back pain sequence: 1-6 Reps/Minutes 1-2 reps and hold indicated Comments cues for gentle stretch and painfree ROM Self-Care/Home Management Treatment Education Patient Education Body Mechanics,Home Exercise Program,Joint Protection,Pain Management,Posture,Safety Other Education 20 min: PT and ROUSTABOUT time spent support education on selection and performance of PT exercises to support pelvic alignment and back comfort while waiting speak with physicians for MRI results and further plan progression. Also mentioned limited visits and want to be sure have some if need later in year. Progressed HEP Pelvic and Back pain program HEP packet Ex 1- 6. PT-OP-T Assessment and Plan Start: 11/16/23 13:18 Freq: Status: Active Protocol: Document 11/29/23 07:31 SP (Rec: 11/29/23 08:17 SP [id number]) Physical Therapy Assessment Goals 3 Impairment Lack of HEP Half-Way Goal (LTG) Pt will perform progressive HEP with I including pelvic realignment, breathing, flexibility, gentle strengthening and balance exercises to improve pain and strength. 11/29/23: LTG Duration 8 weeks 2 Impairment LE weakness Manager Ct Goal (LTG) Pt will present with B hip flexion, extension and abduction strength to at least 4+/5 to improve functional strength with transfers and gait. LTG Duration 8 weeks 1 Impairment Oswestry reflects 34% impairment Half-Way Goal (LTG) Pt will present with Oswestry score reflecting no more than 25% impairment to improve quality of life and pain. LTG Duration 8 weeks Assessment Summary Assessment Pt tolerated tx well, cues for set up and proper form during pelvic and back sequencing program for core strengthening and mobility, little LB discomfort if over recruit abdominals deep breath and lift/lowering LEs during core isometric but improved with education and self adjustment after education. Pt stated new exercises believe will be helpful. SHe found less pain, back les tension end tx. Physical Therapy Plan Frequency and Duration Frequency of Treatment 1-2x/wk Duration of treatment (weeks) 8 Plan of Care Start Date 11/17/23 Plan of Care End Date 01/18/24 Therapeutic Interventions Therapeutic Interventions Balance Training,Canalithic Repositioning,Gait Training, Home Exercise Program,Joint Mobilizations,Manual Therapy, Neuromuscular Re-education, Patient/Caregiver Education, Self-Care/Home Management,Soft Tissue Mobilization,Taping, Therapeutic Activities, Therapeutic Exercises, Vestibular Rehabilitation Modalities Cold Pack/Ice Massage,Electric Stimulation,Hot Packs, Ultrasound Next Visit Focus/Plan Next Note Type Treatment Note Next Visit Plan Recheck HEP: pelvic and LBP sequencing program initiated last tx 1-6 POC: manual work and progressive gentle core exercises and Buteyko breathing
--- NOTE | 2023-12-01 09:45 | PT.OTN ---
Current Diagnoses Sacroiliitis, not elsewhere classified (12/01/23) Sciatica, unspecified side (12/01/23) Low back pain, unspecified (12/01/23) Physical Therapy Treatment Note PT-OP-A Visit Information Start: 11/16/23 13:18 Freq: Status: Active Protocol: Document 12/01/23 09:06 SP (Rec: 12/01/23 09:50 SP [id number]) Out-Patient Physical Therapy Visit Information Visit Information Visit Type Treatment Note Visit Note Healthcare Management, Self- Pay Visit Start Time 09:06 Visit Stop Time 09:45 Visit Number 4 Number of BIOLOGICAL SCIENTIST Visits 2 Evaluation Information Evaluation Date 11/17/23 PT-OP-B Current Condition Start: 11/16/23 13:18 Freq: Status: Active Protocol: Document 11/17/23 08:13 MB (Rec: 11/17/23 08:38 MB [id number]) Current Condition History of Current Condition Onset Date Years with back pain with flare-up over the past 6 months Current Complaints Right sciatic symptoms since July History of Current Condition Pt has a history of LBP and LLE sciatic-type symptoms. This was about 5 years ago. She had last MRI 4 years ago and results below. In July of 2023, pt had onset of right sciatic pain symptoms. 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 She has a new bench that she is sitting on and she has not been using therapy ball at client's home and sits on the floor occ. Sleeping is hit or miss. She has pain down right leg in supine or right side. She sleeps on left side, too, and uses pillow support. Some manual treatments by providers has been helpful. She is walking flat surfaces daily and is doing pelvic realignment exercises and has not been doing therapy ball exercises. Pt went to [employer] and she got some aqua exercises and she goes 4x/wk. She does feel improvement over the last few months with OMT and other interventions. Prior Treatments and Tests MRI 2020: IMPRESSION: 1. Multilevel degenerative disc and facet disease, as well as ligamentum flavum hypertrophy and epidural lipomatosis. 2. Mild multilevel canal stenosis. 3. Multilevel foraminal stenosis, worst at L5-S1, where there is mild-to- moderate foraminal stenosis. 4. Left lateral recess stenosis at L5-S1 associated with left S1 nerve root compression. Recommend correlation with clinical symptoms to ascertain relevance of this finding. Treatment Goals Patient/Caregiver Goals To decrease pain and increase sleep. Pt is concerned about strengthening if she has alignment issues. PT-OP-C Subjective Start: 11/16/23 13:18 Freq: Status: Active Protocol: Document 12/01/23 09:06 SP (Rec: 12/01/23 09:50 SP [id number]) OP-PT Subjective Patient Comments Patient Comments Pt reports has had a busy schedule and only able to do new ex x2 since last tx which suffices 1x/day. PT-OP-J Posture/Palpation/Skin Start: 11/16/23 13:18 Freq: Status: Active Protocol: Document 11/17/23 08:13 MB (Rec: 11/17/23 08:48 MB [id number]) Posture Evaluation Comments Posture Comments Increased dalton angle left greater than right foot with gait, increased lateral weight bearing feet and decreased toe push off. Gait in bare feet. Standing posture in bare feet: Mild Dowager's hump, decreased thoracic kyphosis, mild right thoracic convexity, right scapula is mildly lower than the left, right iliac crest mildly higher than the left, B rounded shoulders and forward head. Decreased lumbar lordosis as well. PT-OP-K Range of Motion Start: 11/16/23 13:18 Freq: Status: Active Protocol: Document 11/17/23 08:13 MB (Rec: 11/17/23 16:19 MB [id number]) Lumbar Spine Range of Motion Lumbar Spine Active Testing Position Standing Comments Flexion with fingertips 12 from the floor, extension 10 deg, B SB limited and more to the right with improved movement with SI joint compression/pelvic support B thoracic rotation limited with mild reduction to the right compared to left PT-OP-L Special Tests Start: 11/16/23 13:18 Freq: Status: Active Protocol: Document 11/17/23 08:13 MB (Rec: 11/17/23 16:19 MB [id number]) Special Tests Other Special Tests Special Tests Initiated Slump Testing and with left slump, increased numbness down left leg to foot and increased pain down right leg and so deferred testing right side to avoid provoking pt too much PT-OP-M Strength Start: 11/16/23 13:18 Freq: Status: Active Protocol: Document 11/17/23 08:13 MB (Rec: 11/17/23 16:22 MB [id number]) Hip Strength Hip Manual Muscle Testing Left Flexion (L2) 4+ Good+ Extension (S1) 4+ Good+ Abduction 4+ Good+ Adduction 4+ Good+ Comments Peformed in supine Right Flexion (L2) 4 Good Extension (S1) 4 Good Abduction 4 Good Adduction 4 Good Comments Performed in supine Knee Strength Knee Manual Muscle Testing Left Flexion (S2) 4+ Good+ Extension (L3) 5 Normal Right Flexion (S2) 4+ Good+ Extension (L3) 5 Normal Ankle/Foot Strength Ankle and Foot Manual Muscle Testing Bilateral Dorsiflexion (L4) 5 Normal Toe Strength Toe Manual Muscle Testing Left Great Toe Extension 5 Normal Right Great Toe Extension 5 Normal PT-OP-Q Treatments Start: 11/16/23 13:18 Freq: Status: Active Protocol: Document 12/01/23 09:06 SP (Rec: 12/01/23 09:50 SP [id number]) Therapeutic Exercises Supine Exercises Pelvic realignment exercises Supine Exercise Name warm up Side bilateral Equipment Used Blue ball Reps/Minutes 5 reps, 3 sec hold Comments Feet together ball squeeze, knee opp ankle iso, thigh press down iso Other Exercises pelvis Other Exercise Name Pelvic and back pain sequence: 1-6 Resistance 1- Reps/Minutes 1-2 reps and hold indicated Comments cues for gentle stretch pnfree gentle ROM Self-Care/Home Management Treatment Education Patient Education Home Exercise Program,Joint Protection,Pain Management, Posture,Safety Other Education Discussed with PT and pt suggestion inversion table. pt reports used an inversion table in past for spinal and pelvic decompression but also does wt hanging in pool with good releases. PT-OP-T Assessment and Plan Start: 11/16/23 13:18 Freq: Status: Active Protocol: Document 12/01/23 09:06 SP (Rec: 12/01/23 09:50 SP [id number]) Physical Therapy Assessment Goals 3 Impairment Lack of HEP Planning Analyst Goal (LTG) Pt will perform progressive HEP with I including pelvic realignment, breathing, flexibility, gentle strengthening and balance exercises to improve pain and strength. 11/29/23: LTG Duration 8 weeks 2 Impairment LE weakness Planning Analyst Goal (LTG) Pt will present with B hip flexion, extension and abduction strength to at least 4+/5 to improve functional strength with transfers and gait. LTG Duration 8 weeks 1 Impairment Oswestry reflects 34% impairment Custodial Goal (LTG) Pt will present with Oswestry score reflecting no more than 25% impairment to improve quality of life and pain. LTG Duration 8 weeks Assessment Summary Assessment Pt tolerated pelvic and back pain sequence exercises/ stretches review 1-6 and initiated 7-12. Reported L gluteal nerve awareness during piriformis stretch but less with fac ER suggested, spinal alignment PPT/SUPERINTENDENT REFUSE DISPOSAL and TA support as needed for ease of ROM pain reduction. Cues for proper form, use towel for support if needed, hand placement as needed modified. Pt reported sore but felt stretching helpful for tension reduction in LS. She is open to acquiring inversion table unsure where and how, found goo dbenefits in her past with 1. Also does wt hanging in pool similarity but wont' be able to do over nex t3 weeks, pool closed for yrly maintenance. Physical Therapy Plan Frequency and Duration Frequency of Treatment 1-2x/wk Duration of treatment (weeks) 8 Plan of Care Start Date 11/17/23 Plan of Care End Date 01/18/24 Therapeutic Interventions Therapeutic Interventions Balance Training,Canalithic Repositioning,Gait Training, Home Exercise Program,Joint Mobilizations,Manual Therapy, Neuromuscular Re-education, Patient/Caregiver Education, Self-Care/Home Management,Soft Tissue Mobilization,Taping, Therapeutic Activities, Therapeutic Exercises, Vestibular Rehabilitation Modalities Cold Pack/Ice Massage,Electric Stimulation,Hot Packs, Ultrasound Next Visit Focus/Plan Next Note Type Treatment Note Next Visit Plan Recheck HEP: pelvic and LBP sequencing program initiated last tx 1-6 POC: manual work and progressive gentle core exercises and Buteyko breathing
--- NOTE | 2023-12-09 14:32 | PT.OTN ---
Current Diagnoses Sacroiliitis, not elsewhere classified (12/09/23) Sciatica, unspecified side (12/09/23) Low back pain, unspecified (12/09/23) Physical Therapy Treatment Note PT-OP-A Visit Information Start: 11/16/23 13:18 Freq: Status: Active Protocol: Document 12/09/23 13:49 SP (Rec: 12/09/23 14:40 SP [id number]) Out-Patient Physical Therapy Visit Information Visit Information Visit Type Treatment Note Visit Note Healthcare Management, Self- Pay Visit Start Time 13:49 Visit Stop Time 14:32 Visit Number 5 Number of SALES REPRESENTATIVE PUBLIC UTILITIES Visits 3 Evaluation Information Evaluation Date 11/17/23 PT-OP-B Current Condition Start: 11/16/23 13:18 Freq: Status: Active Protocol: Document 11/17/23 08:13 MB (Rec: 11/17/23 08:38 MB [id number]) Current Condition History of Current Condition Onset Date Years with back pain with flare-up over the past 6 months Current Complaints Right sciatic symptoms since July History of Current Condition Pt has a history of LBP and LLE sciatic-type symptoms. This was about 5 years ago. She had last MRI 4 years ago and results below. In July of 2023, pt had onset of right sciatic pain symptoms. 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 She has a new bench that she is sitting on and she has not been using therapy ball at client's home and sits on the floor occ. Sleeping is hit or miss. She has pain down right leg in supine or right side. She sleeps on left side, too, and uses pillow support. Some manual treatments by providers has been helpful. She is walking flat surfaces daily and is doing pelvic realignment exercises and has not been doing therapy ball exercises. Pt went to [employer] and she got some aqua exercises and she goes 4x/wk. She does feel improvement over the last few months with OMT and other interventions. Prior Treatments and Tests MRI 2020: IMPRESSION: 1. Multilevel degenerative disc and facet disease, as well as ligamentum flavum hypertrophy and epidural lipomatosis. 2. Mild multilevel canal stenosis. 3. Multilevel foraminal stenosis, worst at L5-S1, where there is mild-to- moderate foraminal stenosis. 4. Left lateral recess stenosis at L5-S1 associated with left S1 nerve root compression. Recommend correlation with clinical symptoms to ascertain relevance of this finding. Treatment Goals Patient/Caregiver Goals To decrease pain and increase sleep. Pt is concerned about strengthening if she has alignment issues. PT-OP-C Subjective Start: 11/16/23 13:18 Freq: Status: Active Protocol: Document 12/09/23 13:49 SP (Rec: 12/09/23 14:40 SP [id number]) OP-PT Subjective Patient Comments Patient Comments Pt reports saw pain specialist and not told not much can do and think surgery is recommended suprised is functioning as good as has been. Awaiting referral approval (3-10 villa) for orthopedic. Pt concerned about 30 PT visits and wants to progress HEP but limit visits weekly and save some for after surgery if decides to do in 2023. Pain in PT-OP-J Posture/Palpation/Skin Start: 11/16/23 13:18 Freq: Status: Active Protocol: Document 11/17/23 08:13 MB (Rec: 11/17/23 08:48 MB [id number]) Posture Evaluation Comments Posture Comments Increased dalton angle left greater than right foot with gait, increased lateral weight bearing feet and decreased toe push off. Gait in bare feet. Standing posture in bare feet: Mild Dowager's hump, decreased thoracic kyphosis, mild right thoracic convexity, right scapula is mildly lower than the left, right iliac crest mildly higher than the left, B rounded shoulders and forward head. Decreased lumbar lordosis as well. PT-OP-K Range of Motion Start: 11/16/23 13:18 Freq: Status: Active Protocol: Document 11/17/23 08:13 MB (Rec: 11/17/23 16:19 MB [id number]) Lumbar Spine Range of Motion Lumbar Spine Active Testing Position Standing Comments Flexion with fingertips 12 from the floor, extension 10 deg, B SB limited and more to the right with improved movement with SI joint compression/pelvic support B thoracic rotation limited with mild reduction to the right compared to left PT-OP-L Special Tests Start: 11/16/23 13:18 Freq: Status: Active Protocol: Document 11/17/23 08:13 MB (Rec: 11/17/23 16:19 MB [id number]) Special Tests Other Special Tests Special Tests Initiated Slump Testing and with left slump, increased numbness down left leg to foot and increased pain down right leg and so deferred testing right side to avoid provoking pt too much PT-OP-M Strength Start: 11/16/23 13:18 Freq: Status: Active Protocol: Document 11/17/23 08:13 MB (Rec: 11/17/23 16:22 MB [id number]) Hip Strength Hip Manual Muscle Testing Left Flexion (L2) 4+ Good+ Extension (S1) 4+ Good+ Abduction 4+ Good+ Adduction 4+ Good+ Comments Peformed in supine Right Flexion (L2) 4 Good Extension (S1) 4 Good Abduction 4 Good Adduction 4 Good Comments Performed in supine Knee Strength Knee Manual Muscle Testing Left Flexion (S2) 4+ Good+ Extension (L3) 5 Normal Right Flexion (S2) 4+ Good+ Extension (L3) 5 Normal Ankle/Foot Strength Ankle and Foot Manual Muscle Testing Bilateral Dorsiflexion (L4) 5 Normal Toe Strength Toe Manual Muscle Testing Left Great Toe Extension 5 Normal Right Great Toe Extension 5 Normal PT-OP-Q Treatments Start: 11/16/23 13:18 Freq: Status: Active Protocol: Document 12/09/23 13:49 SP (Rec: 12/09/23 14:40 SP [id number]) Therapeutic Exercises Supine Exercises Pelvic realignment exercises Supine Exercise Name warm up Side bilateral Equipment Used Blue ball Reps/Minutes 5 reps, 3 sec hold Comments Feet together ball squeeze, knee opp ankle iso, thigh press down iso Other Exercises pelvis Other Exercise Name Pelvic and back pain sequence: 1-9 Side bilateral Resistance (through 12 last tx) Equipment Used HS grasp thighs, Pirif /c ER, Reps/Minutes reps as indicated Comments cues for gentle stretch pnfree gentle ROM Manual Therapy Treatment Other Other Manual Treatments Prone: R LS paraspinals, QL, Glut med & max, piriformis: rolling, sustained pressure MWM hip IR/ER Supine: R TFL, trialed psoas and iliacus but sensitive to pressure and elicited nerve pain down leg so stopped. PT-OP-T Assessment and Plan Start: 11/16/23 13:18 Freq: Status: Active Protocol: Document 12/09/23 13:49 SP (Rec: 12/09/23 14:40 SP [id number]) Physical Therapy Assessment Goals 3 Impairment Lack of HEP Extended Insurance Clerk Goal (LTG) Pt will perform progressive HEP with I including pelvic realignment, breathing, flexibility, gentle strengthening and balance exercises to improve pain and strength. 11/29/23: LTG Duration 8 weeks 2 Impairment LE weakness Group Home Goal (LTG) Pt will present with B hip flexion, extension and abduction strength to at least 4+/5 to improve functional strength with transfers and gait. LTG Duration 8 weeks 1 Impairment Oswestry reflects 34% impairment Extended Insurance Clerk Goal (LTG) Pt will present with Oswestry score reflecting no more than 25% impairment to improve quality of life and pain. LTG Duration 8 weeks Assessment Summary Assessment Pt tolerated pelvis and back sequencing HEP, no increase pain in LB. She had fair response to gentle manual with reports small reduction in LBP. Continues demonstrate guarding with mobililty. SALES REPRESENTATIVE PUBLIC UTILITIES will speak with PT regarding pts concern not using all visits to safe incase has surgery in 2023 need after. Physical Therapy Plan Frequency and Duration Frequency of Treatment 1-2x/wk Duration of treatment (weeks) 8 Plan of Care Start Date 11/17/23 Plan of Care End Date 01/18/24 Therapeutic Interventions Therapeutic Interventions Balance Training,Canalithic Repositioning,Gait Training, Home Exercise Program,Joint Mobilizations,Manual Therapy, Neuromuscular Re-education, Patient/Caregiver Education, Self-Care/Home Management,Soft Tissue Mobilization,Taping, Therapeutic Activities, Therapeutic Exercises, Vestibular Rehabilitation Modalities Cold Pack/Ice Massage,Electric Stimulation,Hot Packs, Ultrasound Next Visit Focus/Plan Next Note Type Treatment Note Next Visit Plan Check response to manual Recheck HEP: pelvic and LBP sequencing program initiated last tx 1-6 POC: manual work and progressive gentle core exercises and B[place]yko breathing
--- NOTE | 2023-12-12 08:14 | PT-OP ANOTE ---
PT receives communication from EMISSIONS REPAIR TECHNICIAN teammate that pt is concerned about possible surgery and also about managing PT visit allowance for the year if this happens. PT attempts to give pt a call to talk and she is unavailable. Will con't to monitor.
--- NOTE | 2023-12-15 14:19 | PT.OTN ---
Current Diagnoses Sacroiliitis, not elsewhere classified (12/15/23) Sciatica, unspecified side (12/15/23) Low back pain, unspecified (12/15/23) Physical Therapy Treatment Note PT-OP-A Visit Information Start: 11/16/23 13:18 Freq: Status: Active Protocol: Document 12/15/23 08:17 MB (Rec: 12/15/23 08:56 MB [id number]) Out-Patient Physical Therapy Visit Information Visit Information Visit Type Progress Note Visit Note Healthcare Management, Self- Pay Progress note by 01/15/24 Visit Start Time 08:17 Visit Stop Time 08:57 Visit Number 6 Number of LEAD SOFTWARE DEVELOPMENT ENGINEER Visits 0 Evaluation Information Evaluation Date 11/17/23 PT-OP-B Current Condition Start: 11/16/23 13:18 Freq: Status: Active Protocol: Document 11/17/23 08:13 MB (Rec: 11/17/23 08:38 MB [id number]) Current Condition History of Current Condition Onset Date Years with back pain with flare-up over the past 6 months Current Complaints Right sciatic symptoms since July History of Current Condition Pt has a history of LBP and LLE sciatic-type symptoms. This was about 5 years ago. She had last MRI 4 years ago and results below. In July of 2023, pt had onset of right sciatic pain symptoms. 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 She has a new bench that she is sitting on and she has not been using therapy ball at client's home and sits on the floor occ. Sleeping is hit or miss. She has pain down right leg in supine or right side. She sleeps on left side, too, and uses pillow support. Some manual treatments by providers has been helpful. She is walking flat surfaces daily and is doing pelvic realignment exercises and has not been doing therapy ball exercises. Pt went to [employer] and she got some aqua exercises and she goes 4x/wk. She does feel improvement over the last few months with OMT and other interventions. Prior Treatments and Tests MRI 2019: IMPRESSION: 1. Multilevel degenerative disc and facet disease, as well as ligamentum flavum hypertrophy and epidural lipomatosis. 2. Mild multilevel canal stenosis. 3. Multilevel foraminal stenosis, worst at L5-S1, where there is mild-to- moderate foraminal stenosis. 4. Left lateral recess stenosis at L5-S1 associated with left S1 nerve root compression. Recommend correlation with clinical symptoms to ascertain relevance of this finding. Treatment Goals Patient/Caregiver Goals To decrease pain and increase sleep. Pt is concerned about strengthening if she has alignment issues. PT-OP-C Subjective Start: 11/16/23 13:18 Freq: Status: Active Protocol: Document 12/15/23 08:17 MB (Rec: 12/15/23 08:56 MB [id number]) OP-PT Subjective Patient Comments Patient Comments Pt states that she went to pain specialist and he was concerned about bulging disc pushing on nerve root. PT-OP-J Posture/Palpation/Skin Start: 11/16/23 13:18 Freq: Status: Active Protocol: Document 11/17/23 08:13 MB (Rec: 11/17/23 08:48 MB [id number]) Posture Evaluation Comments Posture Comments Increased dalton angle left greater than right foot with gait, increased lateral weight bearing feet and decreased toe push off. Gait in bare feet. Standing posture in bare feet: Mild Dowager's hump, decreased thoracic kyphosis, mild right thoracic convexity, right scapula is mildly lower than the left, right iliac crest mildly higher than the left, B rounded shoulders and forward head. Decreased lumbar lordosis as well. PT-OP-K Range of Motion Start: 11/16/23 13:18 Freq: Status: Active Protocol: Document 11/17/23 08:13 MB (Rec: 11/17/23 16:19 MB [id number]) Lumbar Spine Range of Motion Lumbar Spine Active Testing Position Standing Comments Flexion with fingertips 12 from the floor, extension 10 deg, B SB limited and more to the right with improved movement with SI joint compression/pelvic support B thoracic rotation limited with mild reduction to the right compared to left PT-OP-L Special Tests Start: 11/16/23 13:18 Freq: Status: Active Protocol: Document 11/17/23 08:13 MB (Rec: 11/17/23 16:19 MB [id number]) Special Tests Other Special Tests Special Tests Initiated Slump Testing and with left slump, increased numbness down left leg to foot and increased pain down right leg and so deferred testing right side to avoid provoking pt too much PT-OP-M Strength Start: 11/16/23 13:18 Freq: Status: Active Protocol: Document 11/17/23 08:13 MB (Rec: 11/17/23 16:22 MB [id number]) Hip Strength Hip Manual Muscle Testing Left Flexion (L2) 4+ Good+ Extension (S1) 4+ Good+ Abduction 4+ Good+ Adduction 4+ Good+ Comments Peformed in supine Right Flexion (L2) 4 Good Extension (S1) 4 Good Abduction 4 Good Adduction 4 Good Comments Performed in supine Knee Strength Knee Manual Muscle Testing Left Flexion (S2) 4+ Good+ Extension (L3) 5 Normal Right Flexion (S2) 4+ Good+ Extension (L3) 5 Normal Ankle/Foot Strength Ankle and Foot Manual Muscle Testing Bilateral Dorsiflexion (L4) 5 Normal Toe Strength Toe Manual Muscle Testing Left Great Toe Extension 5 Normal Right Great Toe Extension 5 Normal PT-OP-Q Treatments Start: 11/16/23 13:18 Freq: Status: Active Protocol: Document 12/15/23 08:17 MB (Rec: 12/15/23 14:18 MB [id number]) Therapeutic Exercises Supine Exercises Gentle core progression Supine Exercise Name Initial education and practice Side bilateral Reps/Minutes Several reps of each, abd drawing in and pelvic tilt are start and hold pos Comments Set position, gentle knee rocking, HS, knee fall out, mini march Prone Exercises Modified Jane Comments Re-ed and demo in partial army crawl and pelvic rock Self-Care/Home Management Treatment Education Patient Education Body Mechanics,Home Exercise Program,Joint Protection,Pain Management,Posture Other Education PT plan for gentle core progression, con't in pool, benefits of inversion table/ traction table to try at home, PT answer questions as best as possible and encourages pt to make a list for neurosurgeon of questions to ask PT-OP-T Assessment and Plan Start: 11/16/23 13:18 Freq: Status: Active Protocol: Document 12/15/23 08:17 MB (Rec: 12/15/23 08:56 MB [id number]) Physical Therapy Assessment Goals 3 Impairment Lack of HEP Custodial Goal (LTG) Pt will perform progressive HEP with I including pelvic realignment, breathing, flexibility, gentle strengthening and balance exercises to improve pain and strength. 12/15/23: Pt has been performing pelvic realignment exercises, some of the LB and pelvic pain flexibility exercises, diaphragm breathing , walking and pool exercises when it is open LTG Duration 8 weeks 2 Impairment LE weakness Client Support Associate Goal (LTG) Pt will present with B hip flexion, extension and abduction strength to at least 4+/5 to improve functional strength with transfers and gait. 12/15/23: Pt supine: B hip flexion and abduction and extension at least 4+/5 and this goal is met LTG Duration Goal is met 1 Impairment Oswestry reflects 34% impairment Client Support Associate Goal (LTG) Pt will present with Oswestry score reflecting no more than 25% impairment to improve quality of life and pain. 12/15/23: Oswestry LBP score reflects 32% impairment, close to eval date LTG Duration 8 weeks Assessment Summary Assessment Long discussion about plan going forward given MRI findings and discussion with pain doctor that she needs neurosurgery. Initiated core progression today for some gentle strengthening. Pt's leg strength has progressed and she has met this goal since starting PT. Her pain is not much better as far as Oswestry . Ed pt in benefits of considering inversion/traction machine. PT offers to finish PT in 1-3 treatments given pt concern that she might need PT after surgery if she has to have surgery. Pt decides that she would like to keep current scheduled PT visits since she does not yet have neurosurgery referral approval and she would like to con't to progress if able. PT is okay with this plan and will con't to monitor. Physical Therapy Plan Frequency and Duration Frequency of Treatment 1-2x/wk Duration of treatment (weeks) 8 Plan of Care Start Date 11/17/23 Plan of Care End Date 01/18/24 Therapeutic Interventions Therapeutic Interventions Balance Training,Canalithic Repositioning,Gait Training, Home Exercise Program,Joint Mobilizations,Manual Therapy, Neuromuscular Re-education, Patient/Caregiver Education, Self-Care/Home Management,Soft Tissue Mobilization,Taping, Therapeutic Activities, Therapeutic Exercises, Vestibular Rehabilitation Modalities Cold Pack/Ice Massage,Electric Stimulation,Hot Packs, Ultrasound Next Visit Focus/Plan Next Note Type Treatment Note Next Visit Plan Review gentle core progression in hook lying to start: abd drawing in, gentle knee rocking, HS, knee fall out and mini july, NO bridging. Consider hook lying clam with band up over knees and abdominal drawing in first. SLS and body blade.
--- NOTE | 2023-12-22 09:42 | PT.OTN ---
Current Diagnoses Sacroiliitis, not elsewhere classified (12/22/23) Sciatica, unspecified side (12/22/23) Low back pain, unspecified (12/22/23) Physical Therapy Treatment Note PT-OP-A Visit Information Start: 11/16/23 13:18 Freq: Status: Active Protocol: Document 12/22/23 09:02 MB (Rec: 12/22/23 09:42 MB [id number]) Out-Patient Physical Therapy Visit Information Visit Information Visit Type Treatment Note Visit Note Healthcare Management, Self- Pay Progress note by 01/15/24 Visit Start Time 09:02 Visit Stop Time 09:40 Visit Number 7 Number of GUIDANCE CONSULTANT Visits 0 Evaluation Information Evaluation Date 11/17/23 PT-OP-B Current Condition Start: 11/16/23 13:18 Freq: Status: Active Protocol: Document 11/17/23 08:13 MB (Rec: 11/17/23 08:38 MB [id number]) Current Condition History of Current Condition Onset Date Years with back pain with flare-up over the past 6 months Current Complaints Right sciatic symptoms since July History of Current Condition Pt has a history of LBP and LLE sciatic-type symptoms. This was about 5 years ago. She had last MRI 4 years ago and results below. In July of 2023, pt had onset of right sciatic pain symptoms. 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 She has a new bench that she is sitting on and she has not been using therapy ball at client's home and sits on the floor occ. Sleeping is hit or miss. She has pain down right leg in supine or right side. She sleeps on left side, too, and uses pillow support. Some manual treatments by providers has been helpful. She is walking flat surfaces daily and is doing pelvic realignment exercises and has not been doing therapy ball exercises. Pt went to [employer] and she got some aqua exercises and she goes 4x/wk. She does feel improvement over the last few months with OMT and other interventions. Prior Treatments and Tests MRI 2019: IMPRESSION: 1. Multilevel degenerative disc and facet disease, as well as ligamentum flavum hypertrophy and epidural lipomatosis. 2. Mild multilevel canal stenosis. 3. Multilevel foraminal stenosis, worst at L5-S1, where there is mild-to- moderate foraminal stenosis. 4. Left lateral recess stenosis at L5-S1 associated with left S1 nerve root compression. Recommend correlation with clinical symptoms to ascertain relevance of this finding. Treatment Goals Patient/Caregiver Goals To decrease pain and increase sleep. Pt is concerned about strengthening if she has alignment issues. PT-OP-C Subjective Start: 11/16/23 13:18 Freq: Status: Active Protocol: Document 12/22/23 09:02 MB (Rec: 12/22/23 09:42 MB [id number]) OP-PT Subjective Patient Comments Patient Comments Pt got an inversion table and has started to use it. She saw Dr. Wild, neurosurgeon, yesterday. He said that 90% of bulges reduce naturally but not hers because it is so large. She is waiting for insurance to approve disectomy . PT-OP-J Posture/Palpation/Skin Start: 11/16/23 13:18 Freq: Status: Active Protocol: Document 11/17/23 08:13 MB (Rec: 11/17/23 08:48 MB [id number]) Posture Evaluation Comments Posture Comments Increased dalton angle left greater than right foot with gait, increased lateral weight bearing feet and decreased toe push off. Gait in bare feet. Standing posture in bare feet: Mild Dowager's hump, decreased thoracic kyphosis, mild right thoracic convexity, right scapula is mildly lower than the left, right iliac crest mildly higher than the left, B rounded shoulders and forward head. Decreased lumbar lordosis as well. PT-OP-K Range of Motion Start: 11/16/23 13:18 Freq: Status: Active Protocol: Document 11/17/23 08:13 MB (Rec: 11/17/23 16:19 MB [id number]) Lumbar Spine Range of Motion Lumbar Spine Active Testing Position Standing Comments Flexion with fingertips 12 from the floor, extension 10 deg, B SB limited and more to the right with improved movement with SI joint compression/pelvic support B thoracic rotation limited with mild reduction to the right compared to left PT-OP-L Special Tests Start: 11/16/23 13:18 Freq: Status: Active Protocol: Document 11/17/23 08:13 MB (Rec: 11/17/23 16:19 MB [id number]) Special Tests Other Special Tests Special Tests Initiated Slump Testing and with left slump, increased numbness down left leg to foot and increased pain down right leg and so deferred testing right side to avoid provoking pt too much PT-OP-M Strength Start: 11/16/23 13:18 Freq: Status: Active Protocol: Document 11/17/23 08:13 MB (Rec: 11/17/23 16:22 MB [id number]) Hip Strength Hip Manual Muscle Testing Left Flexion (L2) 4+ Good+ Extension (S1) 4+ Good+ Abduction 4+ Good+ Adduction 4+ Good+ Comments Peformed in supine Right Flexion (L2) 4 Good Extension (S1) 4 Good Abduction 4 Good Adduction 4 Good Comments Performed in supine Knee Strength Knee Manual Muscle Testing Left Flexion (S2) 4+ Good+ Extension (L3) 5 Normal Right Flexion (S2) 4+ Good+ Extension (L3) 5 Normal Ankle/Foot Strength Ankle and Foot Manual Muscle Testing Bilateral Dorsiflexion (L4) 5 Normal Toe Strength Toe Manual Muscle Testing Left Great Toe Extension 5 Normal Right Great Toe Extension 5 Normal PT-OP-Q Treatments Start: 11/16/23 13:18 Freq: Status: Active Protocol: Document 12/22/23 09:02 MB (Rec: 12/22/23 09:42 MB [id number]) Therapeutic Exercises Supine Exercises Pelvic and LBP sequence Supine Exercise Name Diaphragm breathing, drop, thigh press, happy baby, hip rotator stretch Reps/Minutes Hamstring stretch, buttocks stretch, inner thigh stretch, Alexei stretch Comments New handouts today, abdominal drawing, kegel Gentle core progression Supine Exercise Name Practice today Side bilateral Reps/Minutes Several reps of each, abd drawing in and pelvic tilt are start and hold pos Comments Set position, gentle knee rocking, HS, knee fall out, july Pelvic realignment exercises Comments Keep with these Abdominal drawing in Comments Reviewed with core exercises and pelvic and LB sequence Prone Exercises Modified Jane Comments Keep with this if no pain, modified [employer] Systems crawl Sitting Exercises Therapy ball exercises Comments Just con't sitting on therapy ball to change sitting surfaces, can notice c Self-Care/Home Management Treatment Education Other Education Ongoing encouragement for con' t gentle exercises and pool exercise and walking and clear with surgeon about con't post -op PT-OP-T Assessment and Plan Start: 11/16/23 13:18 Freq: Status: Active Protocol: Document 12/22/23 09:02 MB (Rec: 12/22/23 09:42 MB [id number]) Physical Therapy Assessment Goals 3 Impairment Lack of HEP Construction Project Manager Goal (LTG) Pt will perform progressive HEP with I including pelvic realignment, breathing, flexibility, gentle strengthening and balance exercises to improve pain and strength. 12/15/23: Pt has been performing pelvic realignment exercises, some of the LB and pelvic pain flexibility exercises, diaphragm breathing , walking and pool exercises when it is open LTG Duration Met 1 Impairment Oswestry reflects 34% impairment Construction Project Manager Goal (LTG) Pt will present with Oswestry score reflecting no more than 25% impairment to improve quality of life and pain. 12/15/23: Oswestry LBP score reflects 32% impairment, close to eval date LTG Duration Not met Assessment Summary Assessment Discussion with pt and exercise review and pt to con' t with gentle pelvic realignment, core progression and flexibility exercises as well as pool exercise and walking. She is waiting for surgery and will d/c PT. Physical Therapy Plan Frequency and Duration Frequency of Treatment 1-2x/wk Duration of treatment (weeks) 8 Plan of Care Start Date 11/17/23 Plan of Care End Date 01/18/24 Therapeutic Interventions Therapeutic Interventions Balance Training,Canalithic Repositioning,Gait Training, Home Exercise Program,Joint Mobilizations,Manual Therapy, Neuromuscular Re-education, Patient/Caregiver Education, Self-Care/Home Management,Soft Tissue Mobilization,Taping, Therapeutic Activities, Therapeutic Exercises, Vestibular Rehabilitation Modalities Cold Pack/Ice Massage,Electric Stimulation,Hot Packs, Ultrasound Next Visit Focus/Plan Next Note Type Discharge Summary
== END 2024-01-07 12:41 | disposition home or self-care (01) ==
LOC: PHYS 09:00
PROVIDERS: Family Provider Family Medicine; PCP Family Medicine; Referring Provider Naturopath; Visit Provider Naturopath
DX: M54.50 Low back pain, unspecified (principal); M46.1 Sacroiliitis, not elsewhere classified; M54.30 Sciatica, unspecified side
CPT/HCPCS: 97110; 97140; 97161; 97535

== ENCOUNTER 2024-04-13 09:15 | Day surgery (SDC) | payer OTHER, SELFPAY ==
--- NOTE | 2024-04-13 | PATH_ITS ---
[facility] Accession Number: [id number] No. of containers..03 Tissue . 01 Material submitted: . PART A: colon - ASCENDING POLYP PART B: colon - TRANSVERSE POLYP PART C: colon - DESCENDING POLYP . 01 Diagnosis: A. ASCENDING COLON POLYP, BIOPSY: Tubular adenoma. . B. TRANSVERSE COLON POLYP, BIOPSY: Tubular adenoma. . C. DESCENDING COLON POLYP, BIOPSY: Tubular adenoma. MRV 04/17/2024 1552 Local . 01 Electronically signed: . Carisa Whitmore MD, Pathologist NPI- [id number] . 01 Gross description: . A. Received in formalin with two patient identifiers and ascending colon polyps, are multiple tomlin soft tissue fragments aggregating to 2.3 x 0.8 x 0.4 cm. Filtered and submitted in A1. B. Received in formalin with two patient identifiers and transverse colon polyp, is a single tomlin soft tissue fragment, 0.3 cm in greatest dimension, submitted in B1. C. Received in formalin with two patient identifiers and descending colon polyp, is a single tomlin soft tissue fragment, 1.5 cm in greatest dimension, submitted in C1. ([id number]) /MRV 04/14/2024 1321 Local . 01 Pathologist provided ICD-10: D12.2, D12.3, D12.4 . 01 CPT . 714756, 293512, 171392 Specimen Comment: A courtesy copy of this report has been sent to [phone] Performed at: [address] [address], [place], [place] [id number] MD Moisés Cooper MD Phone: [phone]
[2024-04-13 10:16] VITALS: BP 117/75; PULSE 76; RESP 14; TEMP 36.5; O2SAT 99
--- NOTE | 2024-04-13 10:20 | PM.HP.1 ---
History of Present Illness History of Present Illness Date Patient Seen: 04/13/24 Time Patient Seen: 10:20 Chief complaint: Colonoscopy Narrative: Pat is a 59-year-old woman here for colonoscopy. Her last colonoscopy was in 2018 and a tubulovillous adenoma was removed. She has a cousin with a Saravia syndrome. [facility] Medical History (Updated 04/13/24 @ 10:21 by Peterson Marshall MD) Viral URI High cholesterol History of epidural anesthesia Vaginal delivery Seasonal allergies (~1979) Mumps (~1976) Chicken pox (~1982) Family history of Saravia syndrome Lumbar radiculopathy Hyperlipidemia Asthma (~2009) Environmental allergies Depression (~2011) Vertigo Recurrent sinusitis Ovarian cyst Hypothyroidism (~1985) Low back pain Fungal infection of foot Neuropathy Restless leg syndrome (~1994) Anemia Surgical History (Updated 11/08/23 @ 09:00 by Laura Aguirre [facility]) [place] teeth removed (05/03/84) H/O right inguinal hernia repair H/O right inguinal hernia repair Family History Father Age: 95 Hypertension High cholesterol Mother Cancer Heart disease Sister Age: 60 Breast cancer Grandfather No problems noted. Grandmother No problems noted. Grandfather No problems noted. Grandmother No problems noted. Social History household members: spouse and children Smoking Status: Never smoker alcohol intake: never Meds Home Medications and Allergies Home Medications Medication Instructions Recorded Confirmed Type albuterol sulfate 90 mcg/actuation 2 puff inhalation Q4-6H PRN 02/15/19 04/13/24 Rx aerosol inhaler shortness of breath or wheezing #18 grams ropinirole 0.25 mg tablet See Rx Instructions PO BEDTIME #60 02/02/20 04/13/24 Rx tabs coenzyme Q10 100 mg capsule (Co 100 mg PO 11/05/23 04/07/24 History Q-10) magnesium oxide 400 mg PO Restless legs 11/05/23 04/07/24 History clotrimazole-betamethasone 1 1 applic topical BID 2 weeks #15 04/03/24 04/13/24 Rx %-0.05 % topical cream grams fluconazole 150 mg tablet 150 mg PO Q3D 2 doses #2 tabs 04/03/24 04/13/24 Rx hydroxyzine HCl 25 mg tablet 25 mg PO BEDTIME PRN itching #30 04/03/24 04/13/24 Rx tabs ibuprofen 200 mg tablet 600 mg PO DAILY PRN Back pain 04/07/24 04/13/24 History methocarbamol PO PRN Allergic Symptoms 04/07/24 04/07/24 History methylsulfonylmethane [MSM] PO PRN Digestion 04/07/24 04/07/24 History vitamin B complex (B 1 tab PO DAILY PRN Allergy Symptoms 04/07/24 04/13/24 History Complex-Vitamin B12 tablet) Allergies Allergy/AdvReac Type Severity Reaction Status Date / Time penicillin G Allergy Mild Rash Verified 04/13/24 10:01 Exam Vital Signs (past 8 hours): - 04/13/24 10:16 Temperature 97.7 F Pulse Rate 76 Respiratory Rate 14 Blood Pressure 117/75 Pulse Oximetry 99 Oxygen Delivery Method Room Air Oxygen Delivery Method Room Air Const General: No acute distress Resp Effort & Inspection: normal respiratory effort Assessment & Plan Assessment and plan (1) History of adenomatous polyp of colon: Status: Acute Plan Colonoscopy Time-Based Coding :: [TOTAL MINUTES] spent with patient and on the chart (including review of chart, obtaining history, exam, reviewing outside data, placing orders, documenting exam and treatment plan, and counseling patient) on [DATE].
--- NOTE | 2024-04-13 11:43 | PM.OP.COLON ---
Operative Date/Time/Diagnoses Date of procedure: 04/13/24 Time of procedure: 11:43 Pre-op diagnosis: History of polyps Post-op diagnosis: same Procedure & Clinicians Study performed: Colonoscopy Same procedure as scheduled: Yes Surgeon: Peterson Marshall Procedure Notes Procedure in detail: Surgeon: Peterson Marshall MD Anesthesia: Armando Huff CRNA Procedure: The patient was brought to the endoscopy suite, placed in left lateral decubitus position. The patient was connected to monitoring devices. A time-out was performed. Sedation was administered. Once the patient was adequately sedated, a digital rectal exam was performed and was normal. The scope was then inserted and advanced to the cecum where the appendiceal orifice was identified and photographed. The scope was then slowly withdrawn over greater than 6 minutes. The mucosa was thoroughly inspected. There was a 1.5 cm sessile polyp in the ascending removed piecemeal with the cold snare. There was a 7 mm polyp in the ascending colon removed with a cold snare and sent along with the 1.5 cm polyp. There was a 5 mm polyp in the transverse colon removed with a cold snare. There was a 5 mm polyp in the descending colon removed with a cold snare. The scope was retroflexed in the rectum. No other abnormalities were found. The scope was straightened and removed. The patient was awakened and brought to recovery. Scope withdrawal time: 9 minutes Sedation time: 23 minutes EBL: 5 mL Findings: 1.5 cm ascending colon polyp, 7 mm ascending colon polyp, 5 mm transverse colon polyp and 5 mm descending colon polyp Post-procedure Disposition: PACU
[2024-04-13 11:45] VITALS: BP 103/62; PULSE 76; RESP 17; TEMP 36.7; O2SAT 95
[2024-04-13 11:50] VITALS: BP 107/72; PULSE 73; RESP 20; O2SAT 97
[2024-04-13 11:55] VITALS: BP 109/87; PULSE 78; RESP 20; O2SAT 96
[2024-04-13 12:05] VITALS: BP 107/67; PULSE 68; RESP 14; TEMP 36.7; O2SAT 96
== END 2024-04-13 12:20 | disposition home or self-care (01) ==
PROVIDERS: Family Provider Family Medicine; PCP Family Medicine; Referring Provider Surgery; Visit Provider Surgery
PROC: 0DJD8ZZ Inspection of Lower Intestinal Tract, Via Natural or Artificial Opening Endoscopic (ICD-10-PCS; CPT 45378; principal; 2024-04-13 10:30)
DX: Z12.11 Encounter for screening for malignant neoplasm of colon (principal); Z86.0100 Personal history of colon polyps, unspecified; D12.2 Benign neoplasm of ascending colon; D12.3 Benign neoplasm of transverse colon; D12.4 Benign neoplasm of descending colon
CPT/HCPCS: 45385; J2704

== ENCOUNTER 2024-05-02 08:15 | Outpatient (RCR) | payer OTHER, SELFPAY ==
--- NOTE | 2024-03-15 13:41 | PT.OIE ---
Current Diagnoses Intervertebral disc disorders with radiculopathy, lumbosacral region (03/15/24) Past Medical History (Last Updated 11/08/23 @ 09:00 by Laura Aguirre CMA) Anemia Asthma (~2009) Chicken pox (~1982) Depression (~2011) Environmental allergies Family history of Saravia syndrome Fungal infection of foot High cholesterol History of epidural anesthesia Hyperlipidemia Hypothyroidism (~1985) Low back pain Lumbar radiculopathy Mumps (~1976) Neuropathy Ovarian cyst Recurrent sinusitis Restless leg syndrome (~1994) Seasonal allergies (~1979) Vaginal delivery Vertigo Past Surgical History (Last Updated 11/08/23 @ 09:00 by Laura Aguirre CMA) H/O right inguinal hernia repair H/O right inguinal hernia repair [place] teeth removed (05/03/84) Visit Care Team Role Provider Type Idalmis Mejia DO Family Provider Physician Primary Care Provider Specialty: Family Practice Address: [address] [place] [address], [address], [address] Email: [email or web address] Yair Wild DO Attending Provider Non-Staff Referring Provider Specialty: Neurosurgery Address: [address] [place] [address], [id number] Email: Physical Therapy Initial Evaluation PT-OP-A Visit Information Start: 03/12/24 08:33 Freq: Status: Active Protocol: Document 03/15/24 08:15 MB (Rec: 03/15/24 09:00 [id number]) Out-Patient Physical Therapy Visit Information Visit Information Visit Type Initial Evaluation Visit Note 13 PT visits left for the year Visit Start Time 08:15 Visit Stop Time 08:55 Visit Number 1 Number of TURKEY EGG GATHERER Visits 0 Evaluation Information Evaluation Date 03/15/24 PT-OP-B Current Condition Start: 03/12/24 08:33 Freq: Status: Active Protocol: Document 03/15/24 08:15 MB (Rec: 03/15/24 09:00 [id number]) Current Condition History of Current Condition Onset Date 01/19/24 surgery Current Complaints Quad and leg weakness and thoracic tension History of Current Condition Pt underwent L5-S1 microdisectomy 01/19/24 and then she had to assist her MIL who went through surgery and then . Pt just got back from her MIL . His came down with COVID. The stress has affected her recovery and pain per her and surgeon. Pt feels like she needs to work on strength in quads and legs. She feels like her thoracic muscles are tight. Pt is also concerned about pelvic floor and she thinks she has a prolapsed uterus and she has urinary urgency. Overall, pt is sleeping okay. She has good and bad days. Pt con't with left lateral leg to toe tingling and numbness. Treatment Goals Patient/Caregiver Goals To increase strength and improve thoracic tightness. PT-OP-C Subjective Start: 03/12/24 08:33 Freq: Status: Active Protocol: Document 03/15/24 08:15 MB (Rec: 03/15/24 09:00 [id number]) OP-PT Subjective Patient Comments Patient Comments See history of current condition. Patient Questionnaires Oswestry Low Back Index Oswestry Score Pt did not complete test PT-OP-G Mobility & Gait Start: 03/12/24 08:33 Freq: Status: Active Protocol: Document 03/15/24 08:15 MB (Rec: 03/15/24 09:00 MB [id number]) OP Gait Assessment Comments Gait Comments Stiff and careful with gait with decreased arm swing and slow gait speed PT-OP-J Posture/Palpation/Skin Start: 03/12/24 08:33 Freq: Status: Active Protocol: Document 03/15/24 08:15 MB (Rec: 03/15/24 09:00 MB [id number]) Posture Evaluation Comments Posture Comments Standing posture with socks: small incision over L5 area, mild Dowager's hump, left forward shoulder greater than the right, decreased thoracic kyphosis, increased lumbar lordosis, right iliac crest higher than the left, increased Torrey angle and tends to keep right leg forward. SLR mildly less on the left at 70 deg compared to 80 deg on the right, L SI joint stiffer than the right PT-OP-M Strength Start: 03/12/24 08:33 Freq: Status: Active Protocol: Document 03/15/24 08:15 MB (Rec: 03/15/24 09:00 MB [id number]) Hip Strength Hip Manual Muscle Testing Left Flexion (L2) 4+ Good+ Extension (S1) 4+ Good+ Abduction 4+ Good+ Right Flexion (L2) 4+ Good+ Extension (S1) 4+ Good+ Abduction 4+ Good+ Knee Strength Knee Manual Muscle Testing Left Flexion (S2) 5 Normal Extension (L3) 5 Normal Right Flexion (S2) 4 Good Extension (L3) 5 Normal Ankle/Foot Strength Ankle and Foot Manual Muscle Testing Bilateral Dorsiflexion (L4) 5 Normal Toe Strength Toe Manual Muscle Testing Left Great Toe Extension 5 Normal Right Great Toe Extension 5 Normal PT-OP-Q Treatments Start: 03/12/24 08:33 Freq: Status: Active Protocol: Document 03/15/24 08:15 MB (Rec: 03/15/24 09:00 [id number]) Therapeutic Exercises Supine Exercises Pelvic realignment exercises Side bilateral Reps/Minutes 5 reps, 3 sec hold all exercises in order Comments Feet together ball squeeze iso , knee opp ankle iso, thigh press down iso Self-Care/Home Management Treatment Education Patient Education Body Mechanics,Home Exercise Program,Joint Protection,Pain Management,Posture,Safety Other Education Pt demo log rolling, pt is performing good sleeping position with pillow support, ed in benefits of inflatable cushion to sit on to help make surface unstable so she can move hips and sacrum and have cushioning, ed in benefits of inflated therapy ball for sitting to work on pelvic floor contraction, ed in gentle walks, gentle backwards walking without incline, benefits of easing back into the pool and start with water walking PT-OP-T Assessment and Plan Start: 03/12/24 08:33 Freq: Status: Active Protocol: Document 03/15/24 08:15 MB (Rec: 03/15/24 13:41 [id number]) Physical Therapy Assessment Rehab Potential Rehabilitation Potential Good Evaluation Complexity Number of Personal Factors/Comorbidities 1-2 Number of Body Systems Impaired 1-2 Clinical Presentation at Evaluation Evolving Impairments Impairments Activity Tolerance,Balance, Functional Activities, Functional Mobility,Gait,Pain, Posture,ROM,Sensation,Soft Tissue Mobility,Strength Goals 3 Impairment Lack of HEP Shelter Goal (LTG) Pt will perform progressive HEP with I including pelvic realignment, flexibility, core , LE strengthening and balance exercises. LTG Duration 8 weeks 2 Impairment Slow gait speed Jointer Machine Operator Goal (LTG) Pt will gait train at least 1700 feet in 6 minutes to improve community ambulation. LTG Duration 8 weeks 1 Impairment Ongoing reports of pain post- op Shelter Goal (LTG) Pt will present with Oswestry score reflecting no more than 15% impairment to improve pain and quality of life. LTG Duration 8 weeks Assessment Summary Assessment Pt is a 59 y/o female who is now post-op L5-S1 microdiscectomy in January. She had increased stress after surgery when her MIL underwent hospitalization, surgery and then . She con 't with pain and she reports LE weakness and thoracic tightness. She presents with stiffness in spine with gait, pelvic obliquities, slow and careful mobility and mild MMT weakness in hips. She also reports pelvic floor concerns. PT does ed pt that this PT is not a pelvic wall and floor tiler and so will defer this to pelvic floor PT that she could get in the future. She will benefit from PT for manual work, flexibility and alignment exercises and gradual strengthening and balance. Physical Therapy Plan Frequency and Duration Frequency of Treatment 2x/Week Duration of treatment (weeks) 8 Plan of Care Start Date 03/15/24 Plan of Care End Date 05/15/24 Therapeutic Interventions Therapeutic Interventions Balance Training,Canalithic Repositioning,Coordination Training,Gait Training,Home Exercise Program,Joint Mobilizations,Manual Therapy, Neuromuscular Re-education, Patient/Caregiver Education, Self-Care/Home Management, Sensory Integration,Soft Tissue Mobilization,Taping, Therapeutic Activities, Therapeutic Exercises Modalities Cold Pack/Ice Massage,Electric Stimulation,Hot Packs, Ultrasound Next Visit Focus/Plan Next Note Type Treatment Note Next Visit Plan Review exercises that pt received from previous PT course if she brings them in and consider adding them to this PT course Manual work including TrP treatment Progressive increases in core, LE and balance exercises including wall slides, ankle weight vs band hip and knee strengthening, STS, SLS, consider body blade in the future
--- NOTE | 2024-03-15 13:42 | PT.OPPOC ---
Physical, Occupational & Speech Therapy At [facility] Current Diagnoses Intervertebral disc disorders with radiculopathy, lumbosacral region (03/15/24) Visit Care Team Role Provider Type Idalmis Mejia DO Family Provider Physician Primary Care Provider Specialty: Family Practice Address: [address] [place] [address], [address], [place], [address] Email: [email or web address] Yair Wild DO Attending Provider Non-Staff Referring Provider Specialty: Neurosurgery Address: [address] [place] [address], [id number] Email: Plan Of Care PT-OP-B Current Condition Start: 03/12/24 08:33 Freq: Status: Active Protocol: Document 03/15/24 08:15 MB (Rec: 03/15/24 09:00 MB [id number]) Current Condition History of Current Condition Onset Date 01/19/24 surgery Current Complaints Quad and leg weakness and thoracic tension History of Current Condition Pt underwent L5-S1 microdisectomy 01/19/24 and then she had to assist her MIL who went through surgery and then . Pt just got back from her [facility] . His came down with COVID. The stress has affected her recovery and pain per her and surgeon. Pt feels like she needs to work on strength in quads and legs. She feels like her thoracic muscles are tight. Pt is also concerned about pelvic floor and she thinks she has a prolapsed uterus and she has urinary urgency. Overall, pt is sleeping okay. She has good and bad days. Pt con't with left lateral leg to toe tingling and numbness. Treatment Goals Patient/Caregiver Goals To increase strength and improve thoracic tightness. PT-OP-T Assessment and Plan Start: 03/12/24 08:33 Freq: Status: Active Protocol: Document 03/15/24 08:15 MB (Rec: 03/15/24 13:41 MB [id number]) Physical Therapy Assessment Rehab Potential Rehabilitation Potential Good Evaluation Complexity Number of Personal Factors/Comorbidities 1-2 Number of Body Systems Impaired 1-2 Clinical Presentation at Evaluation Evolving Impairments Impairments Activity Tolerance,Balance, Functional Activities, Functional Mobility,Gait,Pain, Posture,ROM,Sensation,Soft Tissue Mobility,Strength Goals 3 Impairment Lack of HEP Cnc Mill And Lathe Operator Goal (LTG) Pt will perform progressive HEP with I including pelvic realignment, flexibility, core , LE strengthening and balance exercises. LTG Duration 8 weeks 2 Impairment Slow gait speed Cnc Mill And Lathe Operator Goal (LTG) Pt will gait train at least 1700 feet in 6 minutes to improve community ambulation. LTG Duration 8 weeks 1 Impairment Ongoing reports of pain post- op Cnc Mill And Lathe Operator Goal (LTG) Pt will present with Oswestry score reflecting no more than 15% impairment to improve pain and quality of life. LTG Duration 8 weeks Assessment Summary Assessment Pt is a 59 y/o female who is now post-op L5-S1 microdiscectomy in January. She had increased stress after surgery when her MIL underwent hospitalization, surgery and then . She con 't with pain and she reports LE weakness and thoracic tightness. She presents with stiffness in spine with gait, pelvic obliquities, slow and careful mobility and mild MMT weakness in hips. She also reports pelvic floor concerns. PT does ed pt that this PT is not a pelvic floor person and so will defer this to pelvic floor PT that she could get in the future. She will benefit from PT for manual work, flexibility and alignment exercises and gradual strengthening and balance. Physical Therapy Plan Frequency and Duration Frequency of Treatment 2x/Week Duration of treatment (weeks) 8 Plan of Care Start Date 03/15/24 Plan of Care End Date 05/15/24 Therapeutic Interventions Therapeutic Interventions Balance Training,Canalithic Repositioning,Coordination Training,Gait Training,Home Exercise Program,Joint Mobilizations,Manual Therapy, Neuromuscular Re-education, Patient/Caregiver Education, Self-Care/Home Management, Sensory Integration,Soft Tissue Mobilization,Taping, Therapeutic Activities, Therapeutic Exercises Modalities Cold Pack/Ice Massage,Electric Stimulation,Hot Packs, Ultrasound Next Visit Focus/Plan Next Note Type Treatment Note Next Visit Plan Review exercises that pt received from previous PT course if she brings them in and consider adding them to this PT course Manual work including TrP treatment Progressive increases in core, LE and balance exercises including wall slides, ankle weight vs band hip and knee strengthening, STS, SLS, consider body blade in the future Plan of Care Dates Plan of Care Start Date 03/15/24 Plan of Care End Date 05/15/24 Electronically Signed by: Argentina Castillo, PT 03/15/24 1342 If you are in agreement with this Plan of Care, please return a signed and dated copy. I have reviewed this Plan of Care and certify that the skilled therapy services above are required to meet the patient?s needs. Physician Signature Date Printed Name and Credentials Clinical Instructor Signature Printed Name and Credentials
--- NOTE | 2024-03-21 09:45 | PT.OTN ---
Current Diagnoses Intervertebral disc disorders with radiculopathy, lumbosacral region (03/21/24) Physical Therapy Treatment Note PT-OP-A Visit Information Start: 03/12/24 08:33 Freq: Status: Active Protocol: Document 03/21/24 09:04 MB (Rec: 03/21/24 09:45 MB [id number]) Out-Patient Physical Therapy Visit Information Visit Information Visit Type Treatment Note Visit Note 12 visits for the year Visit Start Time 09:04 Visit Stop Time 09:44 Visit Number 2 Number of TAR AND AMMONIA PUMP OPERATOR Visits 0 Evaluation Information Evaluation Date 03/15/24 PT-OP-B Current Condition Start: 03/12/24 08:33 Freq: Status: Active Protocol: Document 03/15/24 08:15 MB (Rec: 03/15/24 09:00 MB [id number]) Current Condition History of Current Condition Onset Date 01/19/24 surgery Current Complaints Quad and leg weakness and thoracic tension History of Current Condition Pt underwent L5-S1 microdisectomy 01/19/24 and then she had to assist her MIL who went through surgery and then . Pt just got back from her [facility] . His came down with NISHA. The stress has affected her recovery and pain per her and surgeon. Pt feels like she needs to work on strength in quads and legs. She feels like her thoracic muscles are tight. Pt is also concerned about pelvic floor and she thinks she has a prolapsed uterus and she has urinary urgency. Overall, pt is sleeping okay. She has good and bad days. Pt con't with left lateral leg to toe tingling and numbness. Treatment Goals Patient/Caregiver Goals To increase strength and improve thoracic tightness. PT-OP-C Subjective Start: 03/12/24 08:33 Freq: Status: Active Protocol: Document 03/21/24 09:04 MB (Rec: 03/21/24 09:45 MB [id number]) OP-PT Subjective Patient Comments Patient Comments Pt has not been doing bad. She spaced bringing in handouts from other PT course and she spaced sitting on therapy ball . She did not order cushion to sit on. PT-OP-G Mobility & Gait Start: 03/12/24 08:33 Freq: Status: Active Protocol: Document 03/15/24 08:15 MB (Rec: 03/15/24 09:00 MB [id number]) OP Gait Assessment Comments Gait Comments Stiff and careful with gait with decreased arm swing and slow gait speed PT-OP-J Posture/Palpation/Skin Start: 03/12/24 08:33 Freq: Status: Active Protocol: Document 03/15/24 08:15 MB (Rec: 03/15/24 09:00 MB [id number]) Posture Evaluation Comments Posture Comments Standing posture with socks: small incision over L5 area, mild Dowager's hump, left forward shoulder greater than the right, decreased thoracic kyphosis, increased lumbar lordosis, right iliac crest higher than the left, increased Torrey angle and tends to keep right leg forward. SLR mildly less on the left at 70 deg compared to 80 deg on the right, L SI joint stiffer than the right PT-OP-M Strength Start: 03/12/24 08:33 Freq: Status: Active Protocol: Document 03/15/24 08:15 MB (Rec: 03/15/24 09:00 MB [id number]) Hip Strength Hip Manual Muscle Testing Left Flexion (L2) 4+ Good+ Extension (S1) 4+ Good+ Abduction 4+ Good+ Right Flexion (L2) 4+ Good+ Extension (S1) 4+ Good+ Abduction 4+ Good+ Knee Strength Knee Manual Muscle Testing Left Flexion (S2) 5 Normal Extension (L3) 5 Normal Right Flexion (S2) 4 Good Extension (L3) 5 Normal Ankle/Foot Strength Ankle and Foot Manual Muscle Testing Bilateral Dorsiflexion (L4) 5 Normal Toe Strength Toe Manual Muscle Testing Left Great Toe Extension 5 Normal Right Great Toe Extension 5 Normal PT-OP-Q Treatments Start: 03/12/24 08:33 Freq: Status: Active Protocol: Document 03/21/24 09:04 MB (Rec: 03/21/24 09:45 MB [id number]) Therapeutic Exercises Supine Exercises Hook lying clam Supine Exercise Name HEP and handouts given Side bilateral Equipment Used Level 2 and level 3 bands Reps/Minutes Several reps Gentle core progression Supine Exercise Name Abd draw in, knee rocking, HS, mini march, knee fall out Side bilateral Resistance Level 2 and level 3 bands for bridge Reps/Minutes 10 each exercise Comments New handouts given (pt may have at home from last PT course) Manual Therapy Treatment Consent Patient gave verbal consent for manual Yes treatment Other Other Manual Treatments Pt supine: B thoracic positional release, STM and positional release B QL, glutes, quads, vastus lateralis PT-OP-T Assessment and Plan Start: 03/12/24 08:33 Freq: Status: Active Protocol: Document 03/21/24 09:04 MB (Rec: 03/21/24 09:45 MB [id number]) Physical Therapy Assessment Rehab Potential Rehabilitation Potential Good Evaluation Complexity Number of Personal Factors/Comorbidities 1-2 Number of Body Systems Impaired 1-2 Clinical Presentation at Evaluation Evolving Impairments Impairments Activity Tolerance,Balance, Functional Activities, Functional Mobility,Gait,Pain, Posture,ROM,Sensation,Soft Tissue Mobility,Strength Goals 3 Impairment Lack of HEP Senior Living Goal (LTG) Pt will perform progressive HEP with I including pelvic realignment, flexibility, core , LE strengthening and balance exercises. LTG Duration 8 weeks 2 Impairment Slow gait speed Motors Assembler Goal (LTG) Pt will gait train at least 1700 feet in 6 minutes to improve community ambulation. LTG Duration 8 weeks 1 Impairment Ongoing reports of pain post- op Senior Living Goal (LTG) Pt will present with Oswestry score reflecting no more than 15% impairment to improve pain and quality of life. LTG Duration 8 weeks Assessment Summary Assessment Re-added all gentle core strengthening today and progressed clams with band and bridge (gentle) with band. Physical Therapy Plan Frequency and Duration Frequency of Treatment 2x/Week Duration of treatment (weeks) 8 Plan of Care Start Date 03/15/24 Plan of Care End Date 05/15/24 Therapeutic Interventions Therapeutic Interventions Balance Training,Canalithic Repositioning,Coordination Training,Gait Training,Home Exercise Program,Joint Mobilizations,Manual Therapy, Neuromuscular Re-education, Patient/Caregiver Education, Self-Care/Home Management, Sensory Integration,Soft Tissue Mobilization,Taping, Therapeutic Activities, Therapeutic Exercises Modalities Cold Pack/Ice Massage,Electric Stimulation,Hot Packs, Ultrasound Next Visit Focus/Plan Next Note Type Treatment Note Next Visit Plan Similar: Review exercises ( core already done with PT on 03/21) that pt received from previous PT course if she brings them in and consider adding them to this PT course Manual work including TrP treatment Progressive increases in core, LE and balance exercises including wall slides, ankle weight vs band hip and knee strengthening, STS, SLS, consider body blade in the future, consider [place] exercises for strengthening and balance.
--- NOTE | 2024-03-23 16:33 | PT.OTN ---
Current Diagnoses Intervertebral disc disorders with radiculopathy, lumbosacral region (03/23/24) Physical Therapy Treatment Note PT-OP-A Visit Information Start: 03/12/24 08:33 Freq: Status: Active Protocol: Document 03/23/24 11:39 SW (Rec: 03/23/24 12:47 [id number]) Out-Patient Physical Therapy Visit Information Visit Information Visit Type Treatment Note Visit Note 12 visits for the year Visit Start Time 11:34 Visit Stop Time 12:14 Visit Number 3 Number of [employer] FIN[employer] CONSULTANT Visits 1 PT-OP-B Current Condition Start: 03/12/24 08:33 Freq: Status: Active Protocol: Document 03/15/24 08:15 MB (Rec: 03/15/24 09:00 MB [id number]) Current Condition History of Current Condition Onset Date 01/19/24 surgery Current Complaints Quad and leg weakness and thoracic tension History of Current Condition Pt underwent L5-S1 microdisectomy 01/19/24 and then she had to assist her MIL who went through surgery and then . Pt just got back from her [facility] . His came down with COVID. The stress has affected her recovery and pain per her and surgeon. Pt feels like she needs to work on strength in quads and legs. She feels like her thoracic muscles are tight. Pt is also concerned about pelvic floor and she thinks she has a prolapsed uterus and she has urinary urgency. Overall, pt is sleeping okay. She has good and bad days. Pt con't with left lateral leg to toe tingling and numbness. Treatment Goals Patient/Caregiver Goals To increase strength and improve thoracic tightness. PT-OP-C Subjective Start: 03/12/24 08:33 Freq: Status: Active Protocol: Document 03/23/24 11:39 SW (Rec: 03/23/24 12:47 [id number]) OP-PT Subjective Patient Comments Patient Comments Pt reports company coming into town, needs to vaccuum would like to know how to do it while protecting back. PT-OP-G Mobility & Gait Start: 03/12/24 08:33 Freq: Status: Active Protocol: Document 03/15/24 08:15 MB (Rec: 03/15/24 09:00 MB [id number]) OP Gait Assessment Comments Gait Comments Stiff and careful with gait with decreased arm swing and slow gait speed PT-OP-J Posture/Palpation/Skin Start: 03/12/24 08:33 Freq: Status: Active Protocol: Document 03/15/24 08:15 MB (Rec: 03/15/24 09:00 MB [id number]) Posture Evaluation Comments Posture Comments Standing posture with socks: small incision over L5 area, mild Dowager's hump, left forward shoulder greater than the right, decreased thoracic kyphosis, increased lumbar lordosis, right iliac crest higher than the left, increased Torrey angle and tends to keep right leg forward. SLR mildly less on the left at 70 deg compared to 80 deg on the right, L SI joint stiffer than the right PT-OP-M Strength Start: 03/12/24 08:33 Freq: Status: Active Protocol: Document 03/15/24 08:15 MB (Rec: 03/15/24 09:00 MB [id number]) Hip Strength Hip Manual Muscle Testing Left Flexion (L2) 4+ Good+ Extension (S1) 4+ Good+ Abduction 4+ Good+ Right Flexion (L2) 4+ Good+ Extension (S1) 4+ Good+ Abduction 4+ Good+ Knee Strength Knee Manual Muscle Testing Left Flexion (S2) 5 Normal Extension (L3) 5 Normal Right Flexion (S2) 4 Good Extension (L3) 5 Normal Ankle/Foot Strength Ankle and Foot Manual Muscle Testing Bilateral Dorsiflexion (L4) 5 Normal Toe Strength Toe Manual Muscle Testing Left Great Toe Extension 5 Normal Right Great Toe Extension 5 Normal PT-OP-Q Treatments Start: 03/12/24 08:33 Freq: Status: Active Protocol: Document 03/23/24 11:39 (Rec: 03/23/24 12:47 SW [id number]) Therapeutic Exercises Supine Exercises Hook lying clam Supine Exercise Name verbal review Pelvic realignment exercises Supine Exercise Name verbal review Sitting Exercises LAQ Sitting Exercise Name LAQ (HEP issued) Side bilateral Resistance AROM> 2# AW Reps/Minutes x10 AROM, x10 2# AW Comments UE stabilization on plinth, gentle pain free only Standing Exercises HS curl Standing Exercise Name (HEP issued) Equipment Used 2#>5# AW Reps/Minutes x10 (2# AW), x10 (5# AW) Comments UE support on elevated plinth Other Exercises Wall slide Other Exercise Name wall squat (Add TB around knees and issue HEP next session) Reps/Minutes x10 Comments Educated pt on feet placement, mini squat Manual Therapy Treatment Consent Patient gave verbal consent for manual Yes treatment Soft Tissue Mobilization STM Body Location QL, glute, piriformis, thoracic Mobilization Type Myofascial Release,Sustained Pressure,Trigger Point Release Intensity/Depth Moderate Body Position Sidelying Comments Positioned with pillows Neuro Re-Education Treatment Balance Activities SLS Details SLS (issued HEP) Surface Stable Equipment @ rail Comments bilateral REFINERY OPERATOR [employer]>light touch> UE assist prn Tandem Details Tandem Surface stable Equipment @ rail Comments bilateral Self-Care/Home Management Treatment Education Patient Education Body Mechanics,Home Exercise Program,Joint Protection, Posture,Safety Other Education Pt education on body mechanics and posture. Pt education on how to vaccuum and protect back, instructed pt to keep upright posture, vacuum close to body and no twisting. Pt education on HEP execution, instructed pt to monitor tolerance, and discontinue if pt feels discomfort in back. Pt education on safety with balance. PT-OP-T Assessment and Plan Start: 03/12/24 08:33 Freq: Status: Active Protocol: Document 03/23/24 11:39 (Rec: 03/23/24 12:47 [id number]) Physical Therapy Assessment Goals 3 Impairment Lack of HEP Long-Term Goal (LTG) Pt will perform progressive HEP with I including pelvic realignment, flexibility, core , LE strengthening and balance exercises. LTG Duration 8 weeks 2 Impairment Slow gait speed Urban Planning Teacher Goal (LTG) Pt will gait train at least 1700 feet in 6 minutes to improve community ambulation. LTG Duration 8 weeks 1 Impairment Ongoing reports of pain post- op Long-Term Goal (LTG) Pt will present with Oswestry score reflecting no more than 15% impairment to improve pain and quality of life. LTG Duration 8 weeks Assessment Summary Assessment Pt did not bring in previous PT exercises. Initiated strengthening exercises for LE this session, pt tolerated well. Initiated balance, pt challenged Physical Therapy Plan Frequency and Duration Frequency of Treatment 2x/Week Duration of treatment (weeks) 8 Plan of Care Start Date 03/15/24 Plan of Care End Date 05/15/24 Therapeutic Interventions Therapeutic Interventions Balance Training,Canalithic Repositioning,Coordination Training,Gait Training,Home Exercise Program,Joint Mobilizations,Manual Therapy, Neuromuscular Re-education, Patient/Caregiver Education, Self-Care/Home Management, Sensory Integration,Soft Tissue Mobilization,Taping, Therapeutic Activities, Therapeutic Exercises Modalities Cold Pack/Ice Massage,Electric Stimulation,Hot Packs, Ultrasound Next Visit Focus/Plan Next Note Type Treatment Note Next Visit Plan Next visit followup on tolerance to new HEP. Review wall squats with TB around knees, issue HEP HO. Followup to see if patient was able to get ankle weights for HEP. Similar: Review exercises ( core already done with PT on 03/21) that pt received from previous PT course if she brings them in and consider adding them to this PT course. Manual work including TrP treatment Progressive increases in core, LE and balance exercises including wall slides, ankle weight vs band hip and knee strengthening, STS, SLS, consider body blade in the future, consider [place] exercises for strengthening and balance.
--- NOTE | 2024-03-29 14:29 | PT.OTN ---
Current Diagnoses Intervertebral disc disorders with radiculopathy, lumbosacral region (03/29/24) Physical Therapy Treatment Note PT-OP-A Visit Information Start: 03/12/24 08:33 Freq: Status: Active Protocol: Document 03/29/24 13:50 MB (Rec: 03/29/24 14:29 MB [id number]) Out-Patient Physical Therapy Visit Information Visit Information Visit Type Treatment Note Visit Note 12 visits left for the year, goal for pt is to try to finish by end of the year Visit Start Time 13:50 Visit Stop Time 14:30 Visit Number 4 Number of SMOKING PIPE LINER Visits 0 PT-OP-B Current Condition Start: 03/12/24 08:33 Freq: Status: Active Protocol: Document 03/15/24 08:15 MB (Rec: 03/15/24 09:00 MB [id number]) Current Condition History of Current Condition Onset Date 01/19/24 surgery Current Complaints Quad and leg weakness and thoracic tension History of Current Condition Pt underwent L5-S1 microdisectomy 01/19/24 and then she had to assist her MIL who went through surgery and then . Pt just got back from her [facility] . His came down with COVID. The stress has affected her recovery and pain per her and surgeon. Pt feels like she needs to work on strength in quads and legs. She feels like her thoracic muscles are tight. Pt is also concerned about pelvic floor and she thinks she has a prolapsed uterus and she has urinary urgency. Overall, pt is sleeping okay. She has good and bad days. Pt con't with left lateral leg to toe tingling and numbness. Treatment Goals Patient/Caregiver Goals To increase strength and improve thoracic tightness. PT-OP-C Subjective Start: 03/12/24 08:33 Freq: Status: Active Protocol: Document 03/29/24 13:50 MB (Rec: 03/29/24 14:29 MB [id number]) OP-PT Subjective Patient Comments Patient Comments Pt brought in handouts. She saw care trainer who will meet with pt when she is done with PT. PT-OP-G Mobility & Gait Start: 03/12/24 08:33 Freq: Status: Active Protocol: Document 03/15/24 08:15 MB (Rec: 03/15/24 09:00 MB [id number]) OP Gait Assessment Comments Gait Comments Stiff and careful with gait with decreased arm swing and slow gait speed PT-OP-J Posture/Palpation/Skin Start: 03/12/24 08:33 Freq: Status: Active Protocol: Document 03/15/24 08:15 MB (Rec: 03/15/24 09:00 MB [id number]) Posture Evaluation Comments Posture Comments Standing posture with socks: small incision over L5 area, mild Dowager's hump, left forward shoulder greater than the right, decreased thoracic kyphosis, increased lumbar lordosis, right iliac crest higher than the left, increased Torrey angle and tends to keep right leg forward. SLR mildly less on the left at 70 deg compared to 80 deg on the right, L SI joint stiffer than the right PT-OP-M Strength Start: 03/12/24 08:33 Freq: Status: Active Protocol: Document 03/15/24 08:15 MB (Rec: 03/15/24 09:00 MB [id number]) Hip Strength Hip Manual Muscle Testing Left Flexion (L2) 4+ Good+ Extension (S1) 4+ Good+ Abduction 4+ Good+ Right Flexion (L2) 4+ Good+ Extension (S1) 4+ Good+ Abduction 4+ Good+ Knee Strength Knee Manual Muscle Testing Left Flexion (S2) 5 Normal Extension (L3) 5 Normal Right Flexion (S2) 4 Good Extension (L3) 5 Normal Ankle/Foot Strength Ankle and Foot Manual Muscle Testing Bilateral Dorsiflexion (L4) 5 Normal Toe Strength Toe Manual Muscle Testing Left Great Toe Extension 5 Normal Right Great Toe Extension 5 Normal PT-OP-Q Treatments Start: 03/12/24 08:33 Freq: Status: Active Protocol: Document 03/29/24 13:50 MB (Rec: 03/29/24 14:29 MB [id number]) Therapeutic Exercises Sitting Exercises LAQ Side bilateral Resistance 4# Comments 30 alternating reps x2 Standing Exercises Heel raises with ankle weights Standing Exercise Name HEP and HO from [place] Side bilateral Abduction with with ankle weights Standing Exercise Name HEP and HO from [place] Side bilateral Resistance 4# Comments 30 alternating reps x2, UE support window sill HS curl Side bilateral Resistance 4# Comments 30 alternating x2, UE support high in window sill office Other Exercises Side and backward stepping with band Other Exercise Name HEP and HO Side bilateral Equipment Used Green band around ankles Reps/Minutes Several reps Comments Cues to keep core tight and to squeeze glutes Wall slide Other Exercise Name HEP and HO Side bilateral Resistance Green band around knees Reps/Minutes Several reps Comments Pelvic tilt, core tight, slow count down and up PT-OP-T Assessment and Plan Start: 03/12/24 08:33 Freq: Status: Active Protocol: Document 03/29/24 13:50 MB (Rec: 03/29/24 14:29 MB [id number]) Physical Therapy Assessment Rehab Potential Rehabilitation Potential Good Evaluation Complexity Number of Personal Factors/Comorbidities 1-2 Number of Body Systems Impaired 1-2 Clinical Presentation at Evaluation Evolving Impairments Impairments Activity Tolerance,Balance, Functional Activities, Functional Mobility,Gait,Pain, Posture,ROM,Sensation,Soft Tissue Mobility,Strength Goals 3 Impairment Lack of HEP Mcfp Goal (LTG) Pt will perform progressive HEP with I including pelvic realignment, flexibility, core , LE strengthening and balance exercises. LTG Duration 8 weeks 2 Impairment Slow gait speed Applications Support Specialist Goal (LTG) Pt will gait train at least 1700 feet in 6 minutes to improve community ambulation. LTG Duration 8 weeks 1 Impairment Ongoing reports of pain post- op Mcfp Goal (LTG) Pt will present with Oswestry score reflecting no more than 15% impairment to improve pain and quality of life. LTG Duration 8 weeks Assessment Summary Assessment HEP review, practice and progression today. Physical Therapy Plan Frequency and Duration Frequency of Treatment 2x/Week Duration of treatment (weeks) 8 Plan of Care Start Date 03/15/24 Plan of Care End Date 05/15/24 Therapeutic Interventions Therapeutic Interventions Balance Training,Canalithic Repositioning,Coordination Training,Gait Training,Home Exercise Program,Joint Mobilizations,Manual Therapy, Neuromuscular Re-education, Patient/Caregiver Education, Self-Care/Home Management, Sensory Integration,Soft Tissue Mobilization,Taping, Therapeutic Activities, Therapeutic Exercises Modalities Cold Pack/Ice Massage,Electric Stimulation,Hot Packs, Ultrasound Next Visit Focus/Plan Next Note Type Treatment Note Next Visit Plan HEP review if needed, con't [place] progression and consider band around knees for STS and squats, consider manual work
--- NOTE | 2024-03-29 14:31 | PT.OTN ---
Current Diagnoses Intervertebral disc disorders with radiculopathy, lumbosacral region (03/29/24) Physical Therapy Treatment Note PT-OP-A Visit Information Start: 03/12/24 08:33 Freq: Status: Active Protocol: Document 03/29/24 13:50 MB (Rec: 03/29/24 14:29 MB [id number]) Out-Patient Physical Therapy Visit Information Visit Information Visit Type Treatment Note Visit Note 12 visits left for the year, goal for pt is to try to finish by end of the year Visit Start Time 13:50 Visit Stop Time 14:30 Visit Number 4 Number of BELL SPINNER Visits 0 PT-OP-B Current Condition Start: 03/12/24 08:33 Freq: Status: Active Protocol: Document 03/15/24 08:15 MB (Rec: 03/15/24 09:00 MB [id number]) Current Condition History of Current Condition Onset Date 01/19/24 surgery Current Complaints Quad and leg weakness and thoracic tension History of Current Condition Pt underwent L5-S1 microdisectomy 01/19/24 and then she had to assist her MIL who went through surgery and then . Pt just got back from her [facility] . His came down with COVID. The stress has affected her recovery and pain per her and surgeon. Pt feels like she needs to work on strength in quads and legs. She feels like her thoracic muscles are tight. Pt is also concerned about pelvic floor and she thinks she has a prolapsed uterus and she has urinary urgency. Overall, pt is sleeping okay. She has good and bad days. Pt con't with left lateral leg to toe tingling and numbness. Treatment Goals Patient/Caregiver Goals To increase strength and improve thoracic tightness. PT-OP-C Subjective Start: 03/12/24 08:33 Freq: Status: Active Protocol: Document 03/29/24 13:50 MB (Rec: 03/29/24 14:29 MB [id number]) OP-PT Subjective Patient Comments Patient Comments Pt brought in handouts. She saw staff trainer who will meet with pt when she is done with PT. PT-OP-G Mobility & Gait Start: 03/12/24 08:33 Freq: Status: Active Protocol: Document 03/15/24 08:15 MB (Rec: 03/15/24 09:00 MB [id number]) OP Gait Assessment Comments Gait Comments Stiff and careful with gait with decreased arm swing and slow gait speed PT-OP-J Posture/Palpation/Skin Start: 03/12/24 08:33 Freq: Status: Active Protocol: Document 03/15/24 08:15 MB (Rec: 03/15/24 09:00 MB [id number]) Posture Evaluation Comments Posture Comments Standing posture with socks: small incision over L5 area, mild Dowager's hump, left forward shoulder greater than the right, decreased thoracic kyphosis, increased lumbar lordosis, right iliac crest higher than the left, increased Torrey angle and tends to keep right leg forward. SLR mildly less on the left at 70 deg compared to 80 deg on the right, L SI joint stiffer than the right PT-OP-M Strength Start: 03/12/24 08:33 Freq: Status: Active Protocol: Document 03/15/24 08:15 MB (Rec: 03/15/24 09:00 MB [id number]) Hip Strength Hip Manual Muscle Testing Left Flexion (L2) 4+ Good+ Extension (S1) 4+ Good+ Abduction 4+ Good+ Right Flexion (L2) 4+ Good+ Extension (S1) 4+ Good+ Abduction 4+ Good+ Knee Strength Knee Manual Muscle Testing Left Flexion (S2) 5 Normal Extension (L3) 5 Normal Right Flexion (S2) 4 Good Extension (L3) 5 Normal Ankle/Foot Strength Ankle and Foot Manual Muscle Testing Bilateral Dorsiflexion (L4) 5 Normal Toe Strength Toe Manual Muscle Testing Left Great Toe Extension 5 Normal Right Great Toe Extension 5 Normal PT-OP-Q Treatments Start: 03/12/24 08:33 Freq: Status: Active Protocol: Document 03/29/24 13:50 MB (Rec: 03/29/24 14:29 MB [id number]) Therapeutic Exercises Sitting Exercises LAQ Side bilateral Resistance 4# Comments 30 alternating reps x2 Standing Exercises Heel raises with ankle weights Standing Exercise Name HEP and HO from [place] Side bilateral Abduction with with ankle weights Standing Exercise Name HEP and HO from [place] Side bilateral Resistance 4# Comments 30 alternating reps x2, UE support window sill HS curl Side bilateral Resistance 4# Comments 30 alternating x2, UE support high in window sill office Other Exercises Side and backward stepping with band Other Exercise Name HEP and HO Side bilateral Equipment Used Green band around ankles Reps/Minutes Several reps Comments Cues to keep core tight and to squeeze glutes Wall slide Other Exercise Name HEP and HO Side bilateral Resistance Green band around knees Reps/Minutes Several reps Comments Pelvic tilt, core tight, slow count down and up PT-OP-T Assessment and Plan Start: 03/12/24 08:33 Freq: Status: Active Protocol: Document 03/29/24 13:50 MB (Rec: 03/29/24 14:29 MB [id number]) Physical Therapy Assessment Rehab Potential Rehabilitation Potential Good Evaluation Complexity Number of Personal Factors/Comorbidities 1-2 Number of Body Systems Impaired 1-2 Clinical Presentation at Evaluation Evolving Impairments Impairments Activity Tolerance,Balance, Functional Activities, Functional Mobility,Gait,Pain, Posture,ROM,Sensation,Soft Tissue Mobility,Strength Goals 3 Impairment Lack of HEP Chcf Goal (LTG) Pt will perform progressive HEP with I including pelvic realignment, flexibility, core , LE strengthening and balance exercises. LTG Duration 8 weeks 2 Impairment Slow gait speed Agricultural Economics Professor Goal (LTG) Pt will gait train at least 1700 feet in 6 minutes to improve community ambulation. LTG Duration 8 weeks 1 Impairment Ongoing reports of pain post- op Chcf Goal (LTG) Pt will present with Oswestry score reflecting no more than 15% impairment to improve pain and quality of life. LTG Duration 8 weeks Assessment Summary Assessment HEP review, practice and progression today. Physical Therapy Plan Frequency and Duration Frequency of Treatment 2x/Week Duration of treatment (weeks) 8 Plan of Care Start Date 03/15/24 Plan of Care End Date 05/15/24 Therapeutic Interventions Therapeutic Interventions Balance Training,Canalithic Repositioning,Coordination Training,Gait Training,Home Exercise Program,Joint Mobilizations,Manual Therapy, Neuromuscular Re-education, Patient/Caregiver Education, Self-Care/Home Management, Sensory Integration,Soft Tissue Mobilization,Taping, Therapeutic Activities, Therapeutic Exercises Modalities Cold Pack/Ice Massage,Electric Stimulation,Hot Packs, Ultrasound Next Visit Focus/Plan Next Note Type Treatment Note Next Visit Plan HEP review if needed, con't [place] progression and consider band around knees for STS and squats, consider manual work
--- NOTE | 2024-04-05 15:13 | PT.OTN ---
Current Diagnoses Intervertebral disc disorders with radiculopathy, lumbosacral region (04/05/24) Physical Therapy Treatment Note PT-OP-A Visit Information Start: 03/12/24 08:33 Freq: Status: Active Protocol: Document 04/05/24 14:33 SP (Rec: 04/05/24 15:51 SP [id number]) Out-Patient Physical Therapy Visit Information Visit Information Visit Type Treatment Note Visit Note 12 visits left for the year, goal for pt is to try to finish by end of the year Visit Start Time 14:33 Visit Stop Time 15:13 Visit Number 5 Number of BOOKER Visits 1 Evaluation Information Evaluation Date 03/15/24 PT-OP-B Current Condition Start: 03/12/24 08:33 Freq: Status: Active Protocol: Document 03/15/24 08:15 MB (Rec: 03/15/24 09:00 MB [id number]) Current Condition History of Current Condition Onset Date 01/19/24 surgery Current Complaints Quad and leg weakness and thoracic tension History of Current Condition Pt underwent L5-S1 microdisectomy 01/19/24 and then she had to assist her MIL who went through surgery and then . Pt just got back from her MIL . His came down with COVID. The stress has affected her recovery and pain per her and surgeon. Pt feels like she needs to work on strength in quads and legs. She feels like her thoracic muscles are tight. Pt is also concerned about pelvic floor and she thinks she has a prolapsed uterus and she has urinary urgency. Overall, pt is sleeping okay. She has good and bad days. Pt con't with left lateral leg to toe tingling and numbness. Treatment Goals Patient/Caregiver Goals To increase strength and improve thoracic tightness. PT-OP-C Subjective Start: 03/12/24 08:33 Freq: Status: Active Protocol: Document 04/05/24 14:33 SP (Rec: 04/05/24 15:51 SP [id number]) OP-PT Subjective Patient Comments Patient Comments Pt reports her back is doing better, has been sick so not as active as can be. PT-OP-G Mobility & Gait Start: 03/12/24 08:33 Freq: Status: Active Protocol: Document 03/15/24 08:15 MB (Rec: 03/15/24 09:00 MB [id number]) OP Gait Assessment Comments Gait Comments Stiff and careful with gait with decreased arm swing and slow gait speed PT-OP-J Posture/Palpation/Skin Start: 03/12/24 08:33 Freq: Status: Active Protocol: Document 03/15/24 08:15 MB (Rec: 03/15/24 09:00 MB [id number]) Posture Evaluation Comments Posture Comments Standing posture with socks: small incision over L5 area, mild Dowager's hump, left forward shoulder greater than the right, decreased thoracic kyphosis, increased lumbar lordosis, right iliac crest higher than the left, increased Torrey angle and tends to keep right leg forward. SLR mildly less on the left at 70 deg compared to 80 deg on the right, L SI joint stiffer than the right PT-OP-M Strength Start: 03/12/24 08:33 Freq: Status: Active Protocol: Document 03/15/24 08:15 MB (Rec: 03/15/24 09:00 MB [id number]) Hip Strength Hip Manual Muscle Testing Left Flexion (L2) 4+ Good+ Extension (S1) 4+ Good+ Abduction 4+ Good+ Right Flexion (L2) 4+ Good+ Extension (S1) 4+ Good+ Abduction 4+ Good+ Knee Strength Knee Manual Muscle Testing Left Flexion (S2) 5 Normal Extension (L3) 5 Normal Right Flexion (S2) 4 Good Extension (L3) 5 Normal Ankle/Foot Strength Ankle and Foot Manual Muscle Testing Bilateral Dorsiflexion (L4) 5 Normal Toe Strength Toe Manual Muscle Testing Left Great Toe Extension 5 Normal Right Great Toe Extension 5 Normal PT-OP-Q Treatments Start: 03/12/24 08:33 Freq: Status: Active Protocol: Document 04/05/24 14:33 SP (Rec: 04/05/24 15:51 SP [id number]) Therapeutic Exercises Sitting Exercises [place] STS Resistance Tb #3 around thighs Reps/Minutes 10 reps LAQ Side bilateral Resistance 4# leg wt Comments 30 alternating reps x2 Standing Exercises Heel raises with ankle weights Standing Exercise Name HEP and HO from [place] Side bilateral Equipment Used 4 # leg wt Reps/Minutes x30 Abduction with with ankle weights Standing Exercise Name HEP and HO from [place] Side bilateral Resistance 4# leg wt Comments 30 alternating reps x2, UE support window sill HS curl Side bilateral Resistance 4# leg wt Comments 30 alternating x2, UE support high in window sill office Other Exercises Side and backward stepping with band Other Exercise Name HEP and HO Side bilateral Equipment Used Green band around ankles Reps/Minutes 20 ft x2 laps Comments Cues to keep core tight and to squeeze glutes Wall slide Other Exercise Name HEP and HO Side bilateral Resistance Green band around thighs Reps/Minutes 15 reps Comments Pelvic tilt, core tight, slow count down and up Gait Training Gait Activity stairs Description ascend/descend stairs /c wt basket Device Used none Distance/Duration 4 stairs x3 sets Comments Cues TA while receiprocal stepping, stable able to complete, just very little crepitus descending, pnfree. dynamic gait Comments -around clinic 170 ft, cued arm swing /c TA -over hurdles: fwd & lateral back stepping PT-OP-T Assessment and Plan Start: 03/12/24 08:33 Freq: Status: Active Protocol: Document 04/05/24 14:33 SP (Rec: 04/05/24 15:51 SP [id number]) Physical Therapy Assessment Goals 3 Impairment Lack of HEP Senior Care Goal (LTG) Pt will perform progressive HEP with I including pelvic realignment, flexibility, core , LE strengthening and balance exercises. LTG Duration 8 weeks 2 Impairment Slow gait speed Senior Care Goal (LTG) Pt will gait train at least 1700 feet in 6 minutes to improve community ambulation. LTG Duration 8 weeks 1 Impairment Ongoing reports of pain post- op Hydrometallurgical Engineer Goal (LTG) Pt will present with Oswestry score reflecting no more than 15% impairment to improve pain and quality of life. LTG Duration 8 weeks Assessment Summary Assessment Continued strengthening progression with no reports of pain, primarily hip abductor tiring throughout ther ex. Progression dynamic gait and stair mgt with cues for arm swing, TA engagement when needed for stepping over obstacles and asc/descend stairs while carryover assimulation laundry upstairs. Only reports little crepitus in knees pnfree. Physical Therapy Plan Frequency and Duration Frequency of Treatment 2x/Week Duration of treatment (weeks) 8 Plan of Care Start Date 03/15/24 Plan of Care End Date 05/15/24 Therapeutic Interventions Therapeutic Interventions Balance Training,Canalithic Repositioning,Coordination Training,Gait Training,Home Exercise Program,Joint Mobilizations,Manual Therapy, Neuromuscular Re-education, Patient/Caregiver Education, Self-Care/Home Management, Sensory Integration,Soft Tissue Mobilization,Taping, Therapeutic Activities, Therapeutic Exercises Modalities Cold Pack/Ice Massage,Electric Stimulation,Hot Packs, Ultrasound Next Visit Focus/Plan Next Note Type Treatment Note Next Visit Plan Ask if may need to add more appts after 05/02/24,return to baseline. HEP review if needed, con't [place] progression and consider band around knees for air squats. Assess response to gait and progression functional mobility, including carrying object stair mgt. consider manual work if needed .
--- NOTE | 2024-04-11 09:46 | PT-IP ANOTE ---
PT calls pt. She canceled tomorrow's appointment d/t illness.
--- NOTE | 2024-04-17 13:24 | PT-OP ANOTE ---
Pt called to cancel appointment next date d/t illness.
--- NOTE | 2024-04-17 13:25 | PT-OP ANOTE ---
PT reviews chart and pt is now overdue for progress note by three days (now 33 days since the eval). PT calls pt and she is acutely ill. Will need to cancel next treatment with the EXECUTIVE COACH on the and pt can see PT when PT returns to the clinic after [place]. Will do progress note at that time (on the ) and then schedule more then as needed as that is her last scheduled visit.
--- NOTE | 2024-05-02 08:49 | PT.OTN ---
Current Diagnoses Intervertebral disc disorders with radiculopathy, lumbosacral region (05/02/24) Physical Therapy Treatment Note PT-OP-A Visit Information Start: 03/12/24 08:33 Freq: Status: Active Protocol: Document 05/02/24 08:12 MB (Rec: 05/02/24 08:49 MB [id number]) Out-Patient Physical Therapy Visit Information Visit Information Visit Type Discharge Summary Visit Start Time 08:12 Visit Stop Time 08:50 Visit Number 6 Number of CAMPAIGN MARKETING MANAGER Visits 0 Evaluation Information Evaluation Date 03/15/24 PT-OP-B Current Condition Start: 03/12/24 08:33 Freq: Status: Active Protocol: Document 03/15/24 08:15 MB (Rec: 03/15/24 09:00 MB [id number]) Current Condition History of Current Condition Onset Date 01/19/24 surgery Current Complaints Quad and leg weakness and thoracic tension History of Current Condition Pt underwent L5-S1 microdisectomy 01/19/24 and then she had to assist her MIL who went through surgery and then . Pt just got back from her [facility] . His came down with NISHA. The stress has affected her recovery and pain per her and surgeon. Pt feels like she needs to work on strength in quads and legs. She feels like her thoracic muscles are tight. Pt is also concerned about pelvic floor and she thinks she has a prolapsed uterus and she has urinary urgency. Overall, pt is sleeping okay. She has good and bad days. Pt con't with left lateral leg to toe tingling and numbness. Treatment Goals Patient/Caregiver Goals To increase strength and improve thoracic tightness. PT-OP-C Subjective Start: 03/12/24 08:33 Freq: Status: Active Protocol: Document 05/02/24 08:12 MB (Rec: 05/02/24 08:49 MB [id number]) OP-PT Subjective Patient Comments Patient Comments Pt is going to have to pay for everything starting in the new year and she is interested in moving forward with self- care at this point with use of OPPT HEP. PT-OP-G Mobility & Gait Start: 03/12/24 08:33 Freq: Status: Active Protocol: Document 03/15/24 08:15 MB (Rec: 03/15/24 09:00 MB [id number]) OP Gait Assessment Comments Gait Comments Stiff and careful with gait with decreased arm swing and slow gait speed PT-OP-J Posture/Palpation/Skin Start: 03/12/24 08:33 Freq: Status: Active Protocol: Document 03/15/24 08:15 MB (Rec: 03/15/24 09:00 MB [id number]) Posture Evaluation Comments Posture Comments Standing posture with socks: small incision over L5 area, mild Dowager's hump, left forward shoulder greater than the right, decreased thoracic kyphosis, increased lumbar lordosis, right iliac crest higher than the left, increased Torrey angle and tends to keep right leg forward. SLR mildly less on the left at 70 deg compared to 80 deg on the right, L SI joint stiffer than the right PT-OP-M Strength Start: 03/12/24 08:33 Freq: Status: Active Protocol: Document 03/15/24 08:15 MB (Rec: 03/15/24 09:00 MB [id number]) Hip Strength Hip Manual Muscle Testing Left Flexion (L2) 4+ Good+ Extension (S1) 4+ Good+ Abduction 4+ Good+ Right Flexion (L2) 4+ Good+ Extension (S1) 4+ Good+ Abduction 4+ Good+ Knee Strength Knee Manual Muscle Testing Left Flexion (S2) 5 Normal Extension (L3) 5 Normal Right Flexion (S2) 4 Good Extension (L3) 5 Normal Ankle/Foot Strength Ankle and Foot Manual Muscle Testing Bilateral Dorsiflexion (L4) 5 Normal Toe Strength Toe Manual Muscle Testing Left Great Toe Extension 5 Normal Right Great Toe Extension 5 Normal PT-OP-Q Treatments Start: 03/12/24 08:33 Freq: Status: Active Protocol: Document 05/02/24 08:12 MB (Rec: 05/02/24 08:49 MB [id number]) Therapeutic Exercises Sitting Exercises [place] STS Comments Verbally reviewed today LAQ Comments Verbally reviewed today Standing Exercises Heel raises with ankle weights Comments Verbally reviewed today Abduction with with ankle weights Comments Verbally reviewed today HS curl Comments Verbally reviewed today Other Exercises HEP review today on d/c Comments Reviewed all handouts Side and backward stepping with band Comments Practiced today with green band and re-ed in form Wall slide Comments Practiced several reps with green band around knees Neuro Re-Education Treatment Balance Activities Backwards walking Comments Ed on benefits of performining if safely can with walking [place] balance Comments SLS next to table, pt holds on , cues for 90/90 with leg in front, can perform up to 60 sec brushing teeth, tandem practiced, tandem forward walking and tandem backward walking: order for exercises will be 4 strengthening, STS, mini squats and then balance and reissued handouts and provided a variety of sizes so she can organize and follow at home SLS Comments Practiced today Tandem Comments Practiced today PT-OP-T Assessment and Plan Start: 03/12/24 08:33 Freq: Status: Active Protocol: Document 05/02/24 08:12 MB (Rec: 05/02/24 08:49 MB [id number]) Physical Therapy Assessment Goals 3 Impairment 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 05/02/24: Pt has been sick for weeks and she has not been doing too much exercising. She has done a little bit of everything. LTG Duration 8 weeks 2 Impairment Slow gait speed Care Home Goal (LTG) Pt will gait train at least 1700 feet in 6 minutes to improve community ambulation. 05/02/24: Did not retest on d/ c note as pt wishes to d/c and use time to review what she can keep doing on her own LTG Duration 8 weeks 1 Impairment Ongoing reports of pain post- op Care Home Goal (LTG) Pt will present with Oswestry score reflecting no more than 15% impairment to improve pain and quality of life. 05/02/24: Pt has not been able to perform HEP d/t illness and her pain is not much improved and deferred Oswestry scoring to what she can do from here on out. LTG Duration 8 weeks Assessment Summary Assessment Pt has no more leg numbness and shooting pain. She has been sick for weeks, has had to miss PT for almost a month and has not been able to perform HEP and this has made progress slow. She wishes to d /c and con't with HEP. PT is in agreement with this. Reorganized program today so that pt can manage at home: [place] on non-pool today and standing band exercises on pool day.
== END 2024-05-11 10:31 | disposition home or self-care (01) ==
LOC: PHYS 08:15
PROVIDERS: Family Provider Family Medicine; PCP Family Medicine; Referring Provider Neurological Surgery; Visit Provider Neurological Surgery
DX: M51.17 Intervertebral disc disorders with radiculopathy, lumbosacral region (principal)
CPT/HCPCS: 97110; 97112; 97116; 97140; 97161; 97535

== ENCOUNTER → 2024-06-29 09:27 | Outpatient (CLI) | payer OTHER, SELFPAY ==
[2024-06-29 10:44] LABS: Appearance Urine UA CLEAR; Bilirubin Urine UA NEGATIVE (NEGATIVE); Color Urine UA YELLOW; Glucose Urine UA NEGATIVE (Negative); Ketones Urine UA TRACE (NEGATIVE); Leukocyte Esterase Urine UA 1+ (NEGATIVE); Nitrite Urine UA NEGATIVE (Negative); Occult Blood Urine UA 3+ (Negative); Protein Urine UA 2+ (Negative); Specific Gravity Urine UA >=1.030 (1.000-1.035); Urobilinogen Urine UA 0.2 E.U./dL (0.2)
[2024-06-29 10:50] LABS: Bacteria Urine Many (>30); Culture Indicated Urine Specimen Cultured; RBC Urine 30-100/HPF (0-5/HPF); Squamous Epithelial Cell Urine 1-5 /HPF (0-5/HPF); Urine Volume 10mL (spun); WBC Urine 5-10/HPF (0-5/HPF)
== END ==
LOC: LAB 09:27
PROVIDERS: Family Provider Family Medicine; PCP Family Medicine; Referring Provider Family Medicine; Visit Provider Family Medicine
DX: R30.0 Dysuria (principal); R35.0 Frequency of micturition; R39.9 Unspecified symptoms and signs involving the genitourinary system
CPT/HCPCS: 81001; 87077; 87086; 87186

== ENCOUNTER → 2024-07-12 08:05 | Outpatient (CLI) | payer OTHER, SELFPAY ==
[2024-07-12 10:01] LABS: Appearance Urine UA CLEAR; Bilirubin Urine UA NEGATIVE (NEGATIVE); Color Urine UA YELLOW; Glucose Urine UA NEGATIVE (Negative); Ketones Urine UA NEGATIVE (NEGATIVE); Leukocyte Esterase Urine UA NEGATIVE (NEGATIVE); Nitrite Urine UA NEGATIVE (Negative); Occult Blood Urine UA TRACE-LYSED (Negative); Protein Urine UA NEGATIVE (Negative); Specific Gravity Urine UA 1.015 (1.000-1.035); Urobilinogen Urine UA 0.2 E.U./dL (0.2)
[2024-07-12 10:03] LABS: pH Urine UA 6.5 (4.5-8.0)
[2024-07-12 10:06] LABS: Bacteria Urine None Seen; Culture Indicated Urine Cult Not Indicated; RBC Urine None Seen (0-5/HPF); Squamous Epithelial Cell Urine 0-1 /HPF (0-5/HPF); Urine Volume 10mL (spun); WBC Urine None Seen (0-5/HPF)
== END ==
PROVIDERS: Family Provider Family Medicine; PCP Family Medicine; Referring Provider Family Medicine; Visit Provider Family Medicine
DX: N39.0 Urinary tract infection, site not specified (principal)
CPT/HCPCS: 81001

== ENCOUNTER → 2024-07-25 12:56 | Outpatient (CLI) | payer OTHER, SELFPAY ==
--- NOTE | 2024-07-25 12:56 | DI.MG.S_ITS ---
MM screening mammo BI: 07/25/2024. BI-RADS: 1 CLINICAL: 59-year old female for bilateral screening mammogram. Tyrer-Cuzick lifetime risk of 23.0%. Current reported family history of breast cancer: sister and maternal aunt. The patient reports testing negative for BRCA gene mutation. PRIOR EXAMS 07/20/2023, 06/23/2023, 05/22/2022, 05/20/2021, 04/18/2020, 11/15/2019, 04/27/2019, 04/05/2019. MAMMOGRAPHY TECHNIQUE: 2D and 3D (tomosynthesis) digital mammographic views obtained, with additional images as needed for full coverage. Current study was also evaluated with a Computer Aided Detection (CAD) system. DENSITY C. The breasts are heterogeneously dense, which may obscure small masses. MAMMOGRAPHY FINDINGS Bilateral: No suspicious mass, asymmetry, microcalcification, or other abnormality seen. IMPRESSION: * No evidence of malignancy. RECOMMENDATIONS Bilateral * According to the Tyrer-Cuzick Risk Assessment Model, based on the information provided your patient has a greater than 20% lifetime risk for developing breast cancer. Consider supplemental screening with breast MRI and participation in a high risk screening program. * Annual screening mammography. OVERALL ASSESSMENT CATEGORY BI-RADS-1: Negative. The [employer] recommends annual screening mammography beginning at age 40 for women with average risk of breast cancer. ELECTRONICALLY SIGNED: Padilla Rosales M.D. on 07/25/2024 at 01:59:34 PM PT Interpreting Station ID: [id number]
== END ==
PROVIDERS: Family Provider Family Medicine; PCP Family Medicine; Referring Provider Family Medicine; Visit Provider Family Medicine
DX: Z12.31 Encounter for screening mammogram for malignant neoplasm of breast (principal); Z80.3 Family history of malignant neoplasm of breast; R92.333 Mammographic heterogeneous density, bilateral breasts
CPT/HCPCS: 77063; 77067

== ENCOUNTER → 2024-08-15 12:58 | Outpatient (CLI) | payer OTHER, SELFPAY ==
--- NOTE | 2024-08-15 12:59 | DI.MRI.S_ITS ---
MR breast BI wo/w con: 08/15/2024. BI-RADS: 0 CLINICAL: 59-year old female for bilateral diagnostic breast MRI. Current reported family history of breast cancer: sister and maternal aunt. The patient reports testing negative for BRCA gene mutation. PRIOR EXAMS: 07/25/2024 MG. MRI TECHNIQUE: Bilateral breast MRI was performed on a 1.5 Elise magnet using a dedicated breast coil with mild compression. Axial T1 and T2 STIR sequences were obtained. Dynamic contrast enhanced VIBRANT fat-suppressed sequences were obtained. Delayed sagittal high resolution or sagittal reconstructed isotropic sequence was also obtained. Subtraction images and maximum intensity projection images were obtained. The study was evaluated using [employer] software. 20cc IV Prohance was administered. FIBROGLANDULAR TISSUE Bilateral: C. Heterogeneous fibroglandular tissue. BACKGROUND PARENCHYMAL ENHANCEMENT Bilateral: Mild symmetrical background parenchymal enhancement. BREAST FINDINGS Left: Upper at 12:00, Middle depth, measuring 0.8 x 0.8 x 0.6 cm: There is an enhancing mass with kinetic enhancement curve showing persistent pattern on delayed phase. Bilateral: No suspicious mass, suspicious non-mass enhancement, or other concerning finding identified. IMPRESSION: Right * No evidence of malignancy. Left (Mass): Upper at 12:00, Middle depth, measuring 0.8 x 0.8 x 0.6 cm * Incomplete - Needs additional imaging evaluation. RECOMMENDATIONS Left: Upper at 12:00, Middle depth * Further evaluation with diagnostic ultrasound. OVERALL ASSESSMENT CATEGORY BI-RADS-0: Incomplete - Need Additional Imaging Evaluation. ELECTRONICALLY SIGNED: Jaswant Whitaker M.D. on 08/15/2024 at 03:08:03 PM PT Interpreting Station ID: [id number]
== END ==
PROVIDERS: Family Provider Family Medicine; PCP Family Medicine; Referring Provider Family Medicine; Visit Provider Family Medicine
DX: R92.8 Other abnormal and inconclusive findings on diagnostic imaging of breast (principal); N63.25 Unspecified lump in the left breast, overlapping quadrants; Z80.3 Family history of malignant neoplasm of breast
CPT/HCPCS: 77049; A9579

== ENCOUNTER → 2024-09-12 10:49 | Outpatient (CLI) | payer OTHER, SELFPAY ==
--- NOTE | 2024-09-12 10:51 | DI.US.S_ITS ---
US breast LT limited: 09/12/2024. BI-RADS: 4 CLINICAL: 59-year old female for left diagnostic breast ultrasound that is a follow-up to diagnostic breast MRI on 08/15/2024. Tyrer-Cuzick lifetime risk of 23.0%. Current reported family history of breast cancer: sister and maternal aunt. The patient reports testing negative for BRCA gene mutation. PRIOR EXAMS Mammogram(s): 07/25/2024. Breast MRI(s): 08/15/2024. 14 Other Exams on 07/20/2023, 06/23/2023, 05/22/2022, 05/20/2021, 04/18/2020, 11/15/2019, 04/27/2019, 04/05/2019, 01/12/2018, 12/09/2016, 07/11/2015. ULTRASOUND TECHNIQUE Real-time can scale and color doppler imaging of the area of clinical interest was performed with image documentation. TARGETED Left Breast Ultrasound: Real-time ultrasound exam was performed focused to area of clinical and/or imaging concern. ULTRASOUND FINDINGS Left: Upper Outer at 12:30, 7.0 cm from nipple, measuring 1 x 0.5 x 0.9 cm. Previous report: Upper at 12:00: No abnormal lymph nodes are seen in the axilla. Correlating with MRI findings there is an oval mass with angular margins. IMPRESSION: Left (Mass): Upper Outer at 12:30, 7.0 cm from nipple, measuring 1 x 0.5 x 0.9 cm. Previous report: Upper at 12:00 * Suspicious findings with likelihood of malignancy. RECOMMENDATIONS Left: Upper Outer at 12:30, 7.0 cm from nipple * Ultrasound-guided biopsy for further evaluation. OVERALL ASSESSMENT CATEGORY BI-RADS-4: Suspicious. ELECTRONICALLY SIGNED: Jaswant Whitaker M.D. on 09/12/2024 at 11:39:53 AM PT Interpreting Station ID: [id number]
== END ==
LOC: US 10:50
PROVIDERS: Family Provider Family Medicine; PCP Family Medicine; Referring Provider Family Medicine; Visit Provider Family Medicine
DX: N63.21 Unspecified lump in the left breast, upper outer quadrant (principal); R92.8 Other abnormal and inconclusive findings on diagnostic imaging of breast; Z80.3 Family history of malignant neoplasm of breast
CPT/HCPCS: 76642

== ENCOUNTER → 2024-09-27 09:51 | Outpatient (CLI) | payer OTHER, SELFPAY ==
--- NOTE | 2024-09-27 09:52 | DI.US.S_ITS ---
US bx breast perc w vac device: 09/27/2024. Rad-Path Correlation: Concordant Pathology Classification: Benign SEE ADDENDUM AT END OF THIS REPORT SEE UPDATED PATHOLOGY AT END OF THIS REPORT CLINICAL: 59-year old female for left procedure that resulted from diagnostic breast ultrasound on 09/12/2024. Biopsy was recommended for a suspicious sonographic mass. Tyrer-Cuzick lifetime risk of 23.0%. Current reported family history of breast cancer: sister and maternal aunt. The patient reports testing negative for BRCA gene mutation. PRIOR EXAMS: Comparison is made with relevant prior imaging in PACS including the most recent: FINDINGS Initial imaging confirmed presence and location of target(s) appropriate for biopsy. CONSENT Risks including but not limited to bleeding and infection, benefits and alternatives were discussed with the patient. The patient agreed to the procedure and signed informed consent. Time out procedure was used. ROUTINE Patient positioned in the supine or supine-oblique position, prepped and draped in the usual manner using sterile technique. Left: Patient positioned in the supine or supine-oblique position, prepped and draped in the usual manner using sterile technique. TECHNIQUE Left Breast: Upper Outer at 12:30, Mid-Depth: Procedure: Ultrasound-guided vacuum-assisted biopsy with Butterfly-shaped marker placement. Device: 13-gauge vacuum-assisted biopsy instrument. Mammotome(R). Approach: Lateral. Anesthesia: Local anesthesia obtained using 5 ml 1%-lidocaine buffered with sodium bicarbonate. Secondary local anesthesia obtained using 6 ml 1%-lidocaine with epinephrine. Skin Entry: Incision with #11 blade. Passes: 4. Specimens: 4. Targeting Confirmation: Real-time Observation and Post-Procedure Imaging. Post-procedure imaging: Post-procedure imaging confirms the marker to be in target location. Rad/Path Correlation: Pending receipt of pathology report. Conclusion: Ultrasound-guided Vacuum-assisted biopsy with post-procedure CC and LM mammographic views, Left Breast: Upper Outer at 12:30, Mid-Depth PROCEDURE NOTE The breast was compressed to achieve hemostasis. COMPLICATIONS: No complications were encountered while the patient was in our department. No complications, ESTIMATED BLOOD LOSS < 2ML. DISPOSITION The patient left our department in good condition with aftercare instructions and urged to contact us should any problem arise. SUMMARY Left Breast: Upper Outer at 12:30, Mid-Depth: Ultrasound-guided vacuum- assisted biopsy of a lesion with Butterfly-shaped marker placement. PATHOLOGY Left Breast: Upper Outer at 12:30, Mid-Depth: Radiologist-Pathologist Correlation: Pending receipt of pathology report. ELECTRONICALLY SIGNED: Romeo Castillo M.D. on 09/27/2024 at 02:52:48 PM PT ADDENDA: * ADDENDUM: This addendum is to add result of Pathology and/or to assign Concordance or Discordance to Rad-Path correlation. RAD-PATH CORRELATION: Concordant. Rad-Path Correlation changed from Pending. ELECTRONICALLY SIGNED: Padilla Rosales M.D. on 10/03/2024 at 10:14:55 AM. UPDATED PATHOLOGY Left Breast: Upper Outer at 12:30, Mid-Depth: Benign Classification: Fibroadenoma and Sclerosing Adenosis. Radiologist-Pathologist Correlation: Concordant. Interpreting Station ID: [id number]
--- NOTE | 2024-09-27 09:52 | DI.MG.S_ITS ---
MM diagnostic mammo [id number]: 09/27/2024. BI-RADS: None CLINICAL: 59-year old female for left diagnostic mammogram that is a follow-up to diagnostic breast MRI on 08/15/2024. Tyrer-Cuzick lifetime risk of 15.9%. Current reported family history of breast cancer: sister and maternal aunt. The patient reports testing negative for BRCA gene mutation. PRIOR EXAMS Mammogram(s): 07/25/2024. Breast Ultrasound(s): 09/12/2024. Breast MRI(s): 08/15/2024. 14 Other Exams on 07/20/2023, 06/23/2023, 05/22/2022, 05/20/2021, 04/18/2020, 11/15/2019, 04/27/2019, 04/05/2019, 01/12/2018, 12/09/2016, 07/11/2015. MAMMOGRAPHY TECHNIQUE: 2D and 3D (tomosynthesis) digital mammographic views obtained, with additional images as needed for full coverage. Current study was also evaluated with a Computer Aided Detection (CAD) system. DENSITY Left: B. There are scattered areas of fibroglandular density. MAMMOGRAPHY FINDINGS Left: Upper Outer at 12:30, 7.0 cm from nipple, Middle depth: There is a (Butterfly) biopsy marker in targeted location. IMPRESSION: Left * Biopsy marker present. OVERALL ASSESSMENT CATEGORY BI-RADS None: This exam requires no BI-RADS. ELECTRONICALLY SIGNED: Romeo Castillo M.D. on 09/27/2024 at 02:54:43 PM PT Interpreting Station ID: [id number]
--- NOTE | 2024-09-27 11:03 | PATH_ITS ---
[facility] Accession Number: [id number] No. of containers..01 Tissue . 01 Material submitted: . breast - LT BREAST . 01 Diagnosis: LEFT BREAST, CORE BIOPSY: Fibroadenoma with focal background sclerosing adenosis. Negative for atypical hyperplasia, in situ carcinoma, and invasive carcinoma. MRV 09/29/2024 1523 Local . 01 Comment: Immunohistochemistry for p63 and smooth muscle myosin is performed and is positive, supporting the above benign diagnoses. . * This test was developed and the performance characteristics were validated by [employer]. It has not been cleared or approved by the U.S. Food and Drug Administration. . 01 Electronically signed: . Shannon Gan DO, Pathologist NPI- [id number] . 01 Gross description: . Received in formalin with two identifiers and LT breast 12:30 7 cm FN, are multiple yellow to tomlin soft tissue fragments aggregating to 1.9 x 0.0 x 0.3 cm. Filtered, inked orange, and submitted entirely in A1. . The specimen was removed on 09/27/2024. Time not provided. Cold ischemic time cannot be calculated. Total fixation time is approximately 32 hours. ([id number]) /MRV 09/29/2024 0716 Local . 01 Pathologist provided ICD-10: R92.8 . 01 CPT . 084825, M31971, K21629 Specimen Comment: A courtesy copy of this report has been sent to [phone] Performed at: [address] [address], [place], [place] [id number] MD Moisés Cooper MD Phone: [phone]
== END ==
LOC: US 09:51
PROVIDERS: Family Provider Family Medicine; PCP Family Medicine; Referring Provider Family Medicine; Visit Provider Family Medicine
DX: R92.8 Other abnormal and inconclusive findings on diagnostic imaging of breast (principal); D24.2 Benign neoplasm of left breast; N60.22 Fibroadenosis of left breast; Z80.3 Family history of malignant neoplasm of breast
CPT/HCPCS: 19083; 77065

== ENCOUNTER → 2025-01-26 10:34 | Outpatient (CLI) | payer OTHER, SELFPAY ==
[2025-01-26 12:08] LABS: Add Manual Diff / Slide Review NO; Hematocrit 39.4 % (36-46); Hemoglobin 13.3 g/dL (12.0-16.0); Lymphocytes Absolute Auto 1400 /uL (1100-4500); Mean Corpuscular HGB Conc 33.9 % (30-36); Mean Corpuscular Hemoglobin 29.8 PG (26-34); Mean Corpuscular Volume 88.0 fL (80-100); Platelet Count 234 X10^3/uL (150-400)
[2025-01-26 12:30] LABS: Cholesterol 287 mg/dL (140-199); HDL Cholesterol 107 mg/dL (40-60); Triglycerides 96 mg/dL (35-150)
[2025-01-26 12:31] LABS: Hemoglobin A1C% w Est Avg Glu 5.7 % (4.0-6.0)
[2025-01-26 12:34] LABS: HEMOLYSIS < 15 (0-50); Iron 108 ug/dL (37-170)
[2025-01-26 12:44] LABS: Percent Iron Saturation 35 % (15-50); Total Iron Binding Capacity 312 ug/dL (265-497); Transferrin 293 mg/dL (206-381)
[2025-01-26 12:59] LABS: Thyroid Stimulating Hormone 2.22 uIU/mL (0.47-4.68)
== END ==
PROVIDERS: Family Provider Family Medicine; PCP Family Medicine; Referring Provider Family Medicine; Visit Provider Family Medicine
DX: Z13.220 Encounter for screening for lipoid disorders (principal); K14.6 Glossodynia; Z13.21 Encounter for screening for nutritional disorder; Z68.26 Body mass index [BMI] 26.0-26.9, adult; Z13.1 Encounter for screening for diabetes mellitus
CPT/HCPCS: 36415; 80061; 83036; 83540; 83550; 84443; 85025

== ENCOUNTER → 2025-04-30 08:13 | Outpatient (CLI) | payer OTHER, SELFPAY ==
--- NOTE | 2025-04-30 08:14 | DI.MRI.S_ITS ---
PROCEDURE: MR HEAD/BRAIN WO CON INDICATIONS: head pressure, headaches TECHNIQUE: Noncontrast axial T1 spin echo, axial T2 fast spin echo, sagittal and axial FLAIR, coronal T2 fast spin echo, axial gradient echo, axial diffusion and ADC through the brain. COMPARISON: None. FINDINGS: CSF Spaces: Basal cisterns are patent. No extra-axial fluid collections. Ventricles are normal in size and shape. Brain: No intracranial masses or hemorrhage. Brainstem appears normal. Diffusion and susceptibility-weighted sequences are within normal limits. Normal intravascular flow voids are present. Nonspecific white matter hyperintensities are noted predominantly in the frontal lobes all measuring less than 3-4 mm. No mass effect Skull and face: Calvarium has normal marrow signal. Orbits appear normal. Sinuses: Sinuses and mastoids are clear. IMPRESSION: Non-specific white matter hyperintensities. Differential possibilities include early chronic ischemic change, migrainous vasculopathy, vasculitis and sequelae of prior trauma or infectious/inflammatory event. No evidence of acute infarct, hemorrhage or mass lesion Approved by: Anuj Johnson M.D. on 04/30/2025 at 12:11
== END ==
LOC: MRI 08:14
PROVIDERS: PCP Family Medicine; Referring Provider Family Medicine; Visit Provider Family Medicine
DX: R51.9 Headache, unspecified (principal)
CPT/HCPCS: 70551